=== PATIENT | male | born 1955 | race Hispanic/Latino ===

== ENCOUNTER 2019-03-05 23:55 | Emergency (ER) | payer MEDICARE, OTHER ==
--- OUTSIDE RECORDS SUMMARY | 2019-03-05 23:57 | XMS REPORT ---
:1955 Author Organization eClinicalWorks Care Team Providers Name Role Phone Kwame Oconnell Provider Role Unavailable Allergies No Known Allergies Problems Problem Type Condition Code Onset Dates Condition Status Assessment Hyperlipidemia, unspecified E78.5 Active hyperlipidemia type Assessment Language barrier Z78.9 Active Problem Hyperlipidemia, unspecified E78.5 Active hyperlipidemia type Problem Type 2 diabetes mellitus without E11.9 Active complication, without long-term current use of insulin Problem Asbestos exposure Z77.090 Active Assessment Type 2 diabetes mellitus without E11.9 Active complication, without long-term current use of insulin Assessment Essential (primary) hypertension I10 Active Problem Essential (primary) hypertension I10 Active Medications Medication Code Code Instructions Start End Date Status Dosage System Date Amlodipine [facility] 58455675931 10 MG Oral Active TAKE 1 Besylate TABLET BY MOUTH EVERY DAY Atorvastatin [facility] 19652524571 20 MG Oral Active TAKE 1 Calcium TABLET BY MOUTH EVERY DAY IN THE EVENING WITH DINNER Lisinopril/HCTZ [facility] 43306776899 20/12.5 PO Q Oct 23April 21, Active one daily 2017 2018 tablet Lisinopril [facility] 18332344553 20 MG Orally March Active 1 tablet Once a day 2018 Chlorthalidone ND 01896647091 25 MG Orally Active 1 tablet Once a day in the morning with food Kombiglyze XR [facility] 89832336781 5-1000 MG Oral Active TAKE 1 TABLET BY MOUTH WITH EVENING MEAL Results No Known Results Summary Purpose eClinicalWorks Submission
--- OUTSIDE RECORDS SUMMARY | 2019-03-05 23:57 | XMS REPORT ---
:1955 Author Organization eClinicalWorks Care Team Providers Name Role Phone Kwame Oconnell Provider Role Unavailable Allergies, Adverse Reactions, Alerts Substance Reaction Event Type N.K.D.A. Info Not Available Non Drug Allergy Problems Problem Type Condition Code Onset Dates Condition Status Assessment Language barrier Z78.9 Active Assessment Hyperlipidemia, unspecified E78.5 Active hyperlipidemia type Assessment Asbestos exposure Z77.090 Active Problem Hyperlipidemia, unspecified E78.5 Active hyperlipidemia type Problem Type 2 diabetes mellitus without E11.9 Active complication, without long-term current use of insulin Problem Asbestos exposure Z77.090 Active Assessment Type 2 diabetes mellitus without E11.9 Active complication, without long-term current use of insulin Assessment Essential (primary) hypertension I10 Active Problem Essential (primary) hypertension I10 Active Medications Medication Code Code Instructions Start End Status Dosage System Date Date Lisinopril/HCTZ [facility] 46907174764 20/12.5 PO Q Oct 23March Active one tablet daily 2017 Atorvastatin [facility] 94160765505 20 MG Oral Active TAKE 1 Calcium TABLET BY MOUTH EVERY DAY IN THE EVENING WITH DINNER Lisinopril ND 77242804899 20 MG Oral Inactive TAKE 1 TABLET BY MOUTH TWICE A DAY Kombiglyze XR ND 27955238910 5-1000 MG Oral Active TAKE 1 TABLET BY MOUTH WITH EVENING MEAL Amlodipine ND 07228787575 10 MG Oral Active TAKE 1 Besylate TABLET BY MOUTH EVERY DAY Results No Known Results Summary Purpose eClinicalWorks Submission
--- OUTSIDE RECORDS SUMMARY | 2019-03-05 23:57 | XMS REPORT ---
:1955 [facility] Address [address] [place] [address] [address] [place] [address] Care Team Providers Name Role Phone Unavailable Unavailable Unavailable Problems This patient has no known problems. Allergies, Adverse Reactions, Alerts This patient has no known allergies or adverse reactions. Medications This patient has no known medications.
--- OUTSIDE RECORDS SUMMARY | 2019-03-05 23:58 | XMS REPORT ---
:1955 Author Organization eClinicalWorks Care Team Providers Name Role Phone Kwame Oconnell Provider Role Unavailable Allergies No Known Allergies Problems Problem Type Condition Code Onset Dates Condition Status Problem Hyperlipidemia, unspecified E78.5 Active hyperlipidemia type Problem Type 2 diabetes mellitus without E11.9 Active complication, without long-term current use of insulin Problem Asbestos exposure Z77.090 Active Assessment Intermittent palpitations R00.2 Active Assessment Essential (primary) hypertension I10 Active Problem Essential (primary) hypertension I10 Active Medications Medication Code Code Instructions Start End Status Dosage System Date Date Kombiglyze XR [facility] 27883705212 5-1000 MG Oral Active TAKE 1 TABLET BY MOUTH WITH EVENING MEAL Chlorthalidone [facility] 40448041841 25 MG Orally Active 1 tablet Once a day in the morning with food Lisinopril/HCTZ [facility] 54107050456 20/12.5 PO Q Oct 23March Active one tablet daily 2017 Amlodipine ND 15891982742 10 MG Oral Active TAKE 1 Besylate TABLET BY MOUTH EVERY DAY Atorvastatin ND 56434695982 20 MG Oral Active TAKE 1 Calcium TABLET BY MOUTH EVERY DAY IN THE EVENING WITH DINNER Results No Known Results Summary Purpose eClinicalWorks Submission
[2019-03-06] MEDS ORDERED: NA CHLORIDE 0.9% 1,000 ML ONE (01:15)
[2019-03-06 01:24] LABS: Absolute Lymphocytes (CBC) 1.6 K/uL (0.7-4.9); Absolute Monocytes 0.7 K/uL (0.1-1.3); Basophils % 1.2 % (0-1.3); Eosinophils % 4.8 % (0-4.4); Hematocrit 43.9 % (39.6-49.0); Lymphocytes % 23.4 % (15.3-44.8); Monocytes % 10.7 % (3.3-12.3); RBC Red Blood Cell Count 4.66 M/uL (4.33-5.43)
[2019-03-06 01:27] LABS: Protime INR 1.01
[2019-03-06 01:43] LABS: Urine Blood TRACE (NEG); Urine Glucose NEGATIVE (NEG); Urine Protein NEGATIVE (NEG); Urine pH 5.5 (5.0-7.0)
[2019-03-06 01:45] LABS: ALT/SGPT 46 U/L (12-78); AST/SGOT 34 U/L (15-37); Albumin 3.9 g/dL (3.4-5.0); Alkaline Phosphatase 47 U/L (45-117); BUN Blood Urea Nitrogen 21 mg/dL (7-18); Bicarbonate 26 mmol/L (21-32); Bilirubin Direct < 0.1 mg/dL (0-0.2); Bilirubin Total 0.5 mg/dL (0.2-1.0); Glucose Level 153 mg/dL (74-106); Lipase 193 U/L (73-393); Magnesium 2.4 mg/dL (1.8-2.4); NT PRO-BNP 7 pg/mL (<125); Potassium 3.7 mmol/L (3.5-5.1); Protein, Total 7.4 g/dL (6.4-8.2); Sodium Level 139 mmol/L (136-145)
--- NOTE | 2019-03-06 02:02 | EDPHYS ---
Physician Documentation [facility] Name: Mookie Simons Age: 63 yrs Sex: Male : 1955 Arrival Date: 03/05/2019 Time: 23:58 Bed 18 Private MD: ED Physician Shankar Landeros HPI: 03/06 01:58 This 63 yrs old Male presents to ER via Ambulatory with complaints of Chest felice Congestion, Cough. 01:58 The patient or guardian reports cough, described as mild, flu symptoms, arthralgias. felice Onset: The symptoms/episode began/occurred 2 week(s) ago. Severity of symptoms: At their worst the symptoms were mild, in the emergency department the symptoms are unchanged. Modifying factors: The symptoms are alleviated by nothing, the symptoms are aggravated by nothing. Associated signs and symptoms: The patient has no apparent associated signs or symptoms. The patient has not experienced similar symptoms in the past. Historical: - Allergies: 00:07 No Known Allergies; ed1 - Home Meds: 00:07 chlorthalidone 25 mg Oral tab 1 tab once daily [Active]; Jardiance 25 mg oral tab 1 tab ed1 once daily [Active]; - PMHx: 00:07 Diabetes - NIDDM; Hypertension; ed1 - PSHx: 00:07 None; ed1 - Immunization history:: Adult Immunizations up to date. - Social history:: Smoking status: Patient/guardian denies using tobacco. - Ebola Screening: : Patient negative for fever greater than or equal to 101.5 degrees Fahrenheit, and additional compatible Ebola Virus Disease symptoms Patient denies exposure to infectious person Patient denies travel to an Ebola-affected area in the 21 days before illness onset No symptoms or risks identified at this time. - Family history:: not pertinent. ROS: 01:58 Constitutional: Negative for fever, chills, and weight loss, Eyes: Negative for injury, felice pain, redness, and discharge, ENT: Negative for injury, pain, and discharge, Neck: Negative for injury, pain, and swelling, Cardiovascular: Negative for chest pain, palpitations, and edema, Abdomen/GI: Negative for abdominal pain, nausea, vomiting, diarrhea, and constipation, Back: Negative for injury and pain, : Negative for injury, bleeding, discharge, and swelling, MS/Extremity: Negative for injury and deformity, Skin: Negative for injury, rash, and discoloration, Neuro: Negative for headache, weakness, numbness, tingling, and seizure, Psych: Negative for depression, anxiety, suicide ideation, homicidal ideation, and hallucinations, Allergy/Immunology: Negative for hives, rash, and allergies, Endocrine: Negative for neck swelling, polydipsia, polyuria, polyphagia, and marked weight changes, Hematologic/Lymphatic: Negative for swollen nodes, abnormal bleeding, and unusual bruising. 01:58 Respiratory: Positive for cough, shortness of breath, at rest. Exam: 01:58 Constitutional: This is a well developed, well nourished patient who is awake, alert, felice and in no acute distress. Head/Face: Normocephalic, atraumatic. Eyes: Pupils equal round and reactive to light, extra-ocular motions intact. Lids and lashes normal. Conjunctiva and sclera are non-icteric and not injected. Cornea within normal limits. Periorbital areas with no swelling, redness, or edema. ENT: Nares patent. No nasal discharge, no septal abnormalities noted. Tympanic membranes are normal and external auditory canals are clear. Oropharynx with no redness, swelling, or masses, exudates, or evidence of obstruction, uvula midline. Mucous membranes moist. Neck: Trachea midline, no thyromegaly or masses palpated, and no cervical lymphadenopathy. Supple, full range of motion without nuchal rigidity, or vertebral point tenderness. No Meningismus. Chest/axilla: Normal chest wall appearance and motion. Nontender with no deformity. No lesions are appreciated. Cardiovascular: Regular rate and rhythm with a normal S1 and S2. No gallops, murmurs, or rubs. Normal PMI, no JVD. No pulse deficits. Respiratory: Lungs have equal breath sounds bilaterally, clear to auscultation and percussion. No rales, rhonchi or wheezes noted. No increased work of breathing, no retractions or nasal flaring. Abdomen/GI: Soft, non-tender, with normal bowel sounds. No distension or tympany. No guarding or rebound. No evidence of tenderness throughout. Back: No spinal tenderness. No costovertebral tenderness. Full range of motion. Male : Normal genitalia with no discharge or lesions. Skin: Warm, dry with normal turgor. Normal color with no rashes, no lesions, and no evidence of cellulitis. Neuro: Awake and alert, GCS 15, oriented to person, place, time, and situation. Cranial nerves II-XII grossly intact. Motor strength 5/5 in all extremities. Sensory grossly intact. Cerebellar exam normal. Normal gait. Psych: Awake, alert, with orientation to person, place and time. Behavior, mood, and affect are within normal limits. 01:58 Musculoskeletal/extremity: Extremities: all appear grossly normal, with no appreciated pain with palpation, ROM: no acute changes, intact in all extremities, full active range of motion, full passive range of motion, Circulation is intact in all extremities. Sensation intact. Compartment Syndrome exam of affected extremity: is normal. DVT Exam: No signs of deep vein thrombosis. no pain, no swelling, no tenderness, negative Homans' sign noted on exam, no appreciated bluish discoloration, no erythema, no increased warmth. Vital Signs: 00:07 BP 140 / 80; Pulse 68; Resp 18; Temp 97.8; Pulse Ox 94% on R/A; Weight 78.93 kg; Height ed1 5 ft. 6 in. (167.64 cm); Pain 4/10; 01:18 BP 138 / 81; Pulse 65; Resp 17 S; Pulse Ox 95% on R/A; cc3 02:25 BP 134 / 77; Pulse 66; Resp 18 S; Pulse Ox 95% on R/A; cc3 03:04 BP 123 / 78; Pulse 62; Resp 19 S; Pulse Ox 96% on R/A; cc3 00:07 Body Mass Index 28.08 (78.93 kg, 167.64 cm) ed1 MDM: 00:12 Patient medically screened. [facility] 02: Data reviewed: vital signs, nurses notes, lab test result(s), EKG, radiologic studies, felice plain films. 03/06 00: Order name: Basic Metabolic Panel [facility] 03/06 Order name: CBC with Diff [facility] 03/06 Order name: LFT's [facility] 03/06 00: Order name: Magnesium; Complete Time: 02:45 [facility] 03/06 00:23 Order name: NT PRO-BNP; Complete Time: 02:45 [facility] 03/06 00: Order name: PT-INR; Complete Time: 01:56 [facility] 03/06 00:23 Order name: Troponin (emerg Dept Use Only); Complete Time: 02:45 [facility] 03/06 00:23 Order name: Lipase; Complete Time: 02:45 [facility] 03/06 00:23 Order name: Urine Culture [facility] 03/06 00:23 Order name: Influenza Screen (a \T\ B); Complete Time: 01:56 [facility] 03/06 00:23 Order name: Blood Culture Adult (2) [facility] 03/06 00:23 Order name: Procalcitonin; Complete Time: 02:45 [facility] 03/06 00:24 Order name: Basic Metabolic Panel; Complete Time: 02:45 EDMS 03/06 00:24 Order name: CBC with Automated Diff; Complete Time: 01:56 EDMS 03/06 00:23 Order name: XRAY Chest (1 view) [facility] 03/06 00:23 Order name: EKG; Complete Time: 00:25 [facility] 03/06 00:23 Order name: Cardiac monitoring; Complete Time: 00:46 [facility] 03/06 00:23 Order name: EKG - Nurse/Tech; Complete Time: 00:46 [facility] 03/06 00:23 Order name: IV Saline Lock; Complete Time: 01:01 [facility] 03/06 00:23 Order name: Labs collected and sent; Complete Time: 01:01 [facility] 03/06 00:23 Order name: O2 Per Protocol; Complete Time: 00:30 [facility] 03/06 00:24 Order name: Liver (Hepatic) Function; Complete Time: 02:45 EDMS 03/06 01:38 Order name: Urine Dipstick--Ancillary (enter results); Complete Time: 01:56 [facility] 03/06 00:23 Order name: O2 Sat Monitoring; Complete Time: 00:30 [facility] 03/06 00:23 Order name: Urine Dipstick-Ancillary (obtain specimen); Complete Time: 01:34 [facility] Administered Medications: 01:05 Drug: NS 0.9% 1000 ml Route: IV; Rate: 125 ml/hr; Site: right antecubital; cc3 03:15 Follow up: Response: No adverse reaction; IV Status: Order to discontinue infusion; IV cc3 Intake: 250ml ; patient discharged home 02:25 Drug: Xopenex 2.5 mg Route: Inhalation; cc3 03:00 Follow up: Response: No adverse reaction; Marked relief of symptoms cc3 02:25 Drug: AtroVENT Aerosol 0.5 mg Route: Inhalation; cc3 03:00 Follow up: Response: No adverse reaction; Marked relief of symptoms cc3 02:30 Drug: Zithromax 500 mg Route: PO; cc3 03:00 Follow up: Response: No adverse reaction cc3 02:30 Drug: Tussionex Pennkinetic ER 5 ml Route: PO; cc3 03:00 Follow up: Response: No adverse reaction cc3 02:33 Drug: SOLU-Medrol 125 mg Route: IVP; Site: right antecubital; cc3 03:00 Follow up: Response: No adverse reaction; Marked relief of symptoms cc3 02:40 Drug: Rocephin - (cefTRIAXone) 1 grams Route: IVPB; Infused Over: 30 mins; Site: right cc3 antecubital; 03:00 Follow up: Response: No adverse reaction; IV Status: Completed infusion; IV Intake: [id number] Disposition: 03/06/19 02:01 Discharged to Home. Impression: Acute upper respiratory infection, unspecified, Cough. - Condition is Stable. - Discharge Instructions: Upper Respiratory Infection, Adult, Cool Mist Vaporizer, Cough, Adult, [id number], Cough, Adult. - Prescriptions for Cheratussin AC 10- 100 mg/5 mL Oral liquid - take 10 milliliter by ORAL route every 4 hours; 160 milliliter. Medrol (Satinder) 4 mg Oral Tablets, Dose Pack - take 1 tablet by ORAL route as directed - follow package instructions; 1 packet. Zithromax 500 mg Oral Tablet - take 1 tablet by ORAL route once daily for 4 days; 4 tablet. Albuterol Sulfate 90 mcg/actuation - inhale 1-2 puff by INHALATION route every 4-6 hours; 1 Inhaler. - Medication Reconciliation Form, Thank You Letter, Antibiotic Education, Prescription Opioid Use form. - Follow up: Private Physician; When: 2 - 3 days; Reason: Recheck today's complaints, Continuance of care, Re-evaluation by your physician. - Problem is new. - Symptoms have improved. Signatures: Dispatcher [employer] EDMS Shankar Landeros MD MD cha Riggs, Erika, RN RN ed1 Anny Castellanos cc3 Corrections: (The following items were deleted from the chart) 03:19 02:01 03/06/2019 02:01 Discharged to Home. Impression: Acute upper respiratory cc3 infection, unspecified; Cough. Condition is Stable. Forms are Medication Reconciliation Form, Thank You Letter, Antibiotic Education, Prescription Opioid Use. Follow up: Private Physician; When: 2 - 3 days; Reason: Recheck today's complaints, Continuance of care, Re-evaluation by your physician. Problem is new. Symptoms have improved. felice
--- NOTE | 2019-03-06 02:02 | ER ---
Nurse's Notes [facility] Name: Mookie Simons Age: 63 yrs Sex: Male : 1955 Arrival Date: 03/05/2019 Time: 23:58 Bed 18 Private MD: Diagnosis: Acute upper respiratory infection, unspecified;Cough Presentation: 03/06 00:04 Presenting complaint: Patient states: I have bad cough for like one week. I cough so ed1 hard my chest hurts. Transition of care: patient was not received from another setting of care. Onset of symptoms was February 26, 2019. Risk Assessment: Do you want to hurt yourself or someone else? Patient reports no desire to harm self or others. Initial Sepsis Screen: Does the patient meet any 2 criteria? No. Patient's initial sepsis screen is negative. Does the patient have a suspected source of infection? No. Patient's initial sepsis screen is negative. Care prior to arrival: None. 00:04 Method Of Arrival: Ambulatory ed1 00:04 Acuity: MARIBEL 3 ed1 Triage Assessment: 00:07 General: Appears in no apparent distress. Behavior is calm, cooperative. Pain: ed1 Complains of pain in chest. Historical: - Allergies: 00:07 No Known Allergies; ed1 - Home Meds: 00:07 chlorthalidone 25 mg Oral tab 1 tab once daily [Active]; Jardiance 25 mg oral tab 1 tab ed1 once daily [Active]; - PMHx: 00:07 Diabetes - NIDDM; Hypertension; ed1 - PSHx: 00:07 None; ed1 - Immunization history:: Adult Immunizations up to date. - Social history:: Smoking status: Patient/guardian denies using tobacco. - Ebola Screening: : Patient negative for fever greater than or equal to 101.5 degrees Fahrenheit, and additional compatible Ebola Virus Disease symptoms Patient denies exposure to infectious person Patient denies travel to an Ebola-affected area in the 21 days before illness onset No symptoms or risks identified at this time. - Family history:: not pertinent. Screenin:09 Abuse screen: Denies threats or abuse. Denies injuries from another. Nutritional cc3 screening: No deficits noted. Tuberculosis screening: No symptoms or risk factors identified. Fall Risk Ambulatory Aid- None/Bed Rest/Nurse Assist (0 pts). Gait- Normal/Bed Rest/Wheelchair (0 pts) Mental Status- Oriented to own ability (0 pts). Assessment: 00:09 Reassessment: Patient appears in no apparent distress at this time. Patient and/or cc3 family updated on plan of care and expected duration. Pain level reassessed. Patient is alert, oriented x 3, equal unlabored respirations, skin warm/dry/pink. 01:18 Reassessment: Patient appears in no apparent distress at this time. Patient and/or cc3 family updated on plan of care and expected duration. Pain level reassessed. Patient is alert, oriented x 3, equal unlabored respirations, skin warm/dry/pink. 02:25 Reassessment: Patient appears in no apparent distress at this time. Patient and/or cc3 family updated on plan of care and expected duration. Pain level reassessed. Patient is alert, oriented x 3, equal unlabored respirations, skin warm/dry/pink. 03:15 Reassessment: Patient appears in no apparent distress at this time. Patient and/or cc3 family updated on plan of care and expected duration. Pain level reassessed. Patient is alert, oriented x 3, equal unlabored respirations, skin warm/dry/pink. Dr. Landeros discharged the patient home with prescription given. IV cannula removed and patient left ER vitally stable and ambulatory with his . Patient denies pain at this time. Patient states feeling better. Patient states symptoms have improved. Vital Signs: 00:07 BP 140 / 80; Pulse 68; Resp 18; Temp 97.8; Pulse Ox 94% on R/A; Weight 78.93 kg; Height ed1 5 ft. 6 in. (167.64 cm); Pain 4/10; 01:18 BP 138 / 81; Pulse 65; Resp 17 S; Pulse Ox 95% on R/A; cc3 02:25 BP 134 / 77; Pulse 66; Resp 18 S; Pulse Ox 95% on R/A; cc3 03:04 BP 123 / 78; Pulse 62; Resp 19 S; Pulse Ox 96% on R/A; cc3 00:07 Body Mass Index 28.08 (78.93 kg, 167.64 cm) ed1 ED Course: 03/05 23:58 Patient arrived in ED. 03/06 00:05 Triage completed. ed1 00:08 Arm band placed on right wrist. ed1 00:09 Anny Castellanos is Primary Nurse. cc3 00:09 Patient has correct armband on for positive identification. Placed in gown. Bed in low cc3 position. Call light in reach. Side rails up X 1. hospital monitor on. Pulse ox on. NIBP on. 00:12 Shankar Landeros MD is Attending Physician. [facility] 00:47 X-ray completed. Portable x-ray completed in exam room. Patient tolerated procedure kw well. 00:49 XRAY Chest (1 view) In Process Unspecified. EDMS 00:50 Inserted saline lock: 20 gauge in right antecubital area, using aseptic technique. cc3 Blood collected. 03:15 No provider procedures requiring assistance completed. IV discontinued, intact, cc3 bleeding controlled, No redness/swelling at site. Pressure dressing applied. Administered Medications: 01:05 Drug: NS 0.9% 1000 ml Route: IV; Rate: 125 ml/hr; Site: right antecubital; cc3 03:15 Follow up: Response: No adverse reaction; IV Status: Order to discontinue infusion; IV cc3 Intake: 250ml ; patient discharged home 02:25 Drug: Xopenex 2.5 mg Route: Inhalation; cc3 03:00 Follow up: Response: No adverse reaction; Marked relief of symptoms cc3 02:25 Drug: AtroVENT Aerosol 0.5 mg Route: Inhalation; cc3 03:00 Follow up: Response: No adverse reaction; Marked relief of symptoms cc3 02:30 Drug: Zithromax 500 mg Route: PO; cc3 03:00 Follow up: Response: No adverse reaction cc3 02:30 Drug: Tussionex Pennkinetic ER 5 ml Route: PO; cc3 03:00 Follow up: Response: No adverse reaction cc3 02:33 Drug: SOLU-Medrol 125 mg Route: IVP; Site: right antecubital; cc3 03:00 Follow up: Response: No adverse reaction; Marked relief of symptoms cc3 02:40 Drug: Rocephin - (cefTRIAXone) 1 grams Route: IVPB; Infused Over: 30 mins; Site: right cc3 antecubital; 03:00 Follow up: Response: No adverse reaction; IV Status: Completed infusion; IV Intake: [id number] Intake: 03:00 IV: 10ml; Total: 10ml. cc3 03:15 IV: 250ml; Total: 260ml. cc3 Outcome: 02:01 Discharge ordered by . felice 03:15 Discharged to home ambulatory, with family. cc3 03:15 Condition: stable 03:15 Discharge instructions given to patient, family, Instructed on discharge instructions, follow up and referral plans. medication usage, Demonstrated understanding of instructions, follow-up care, medications, Prescriptions given X 4. 03:19 Patient left the ED. cc3 Signatures: Dispatcher [employer] EDShankar Marroquin MD MD cha Salyer, Gypsy Toth, RN RN ed1 Ani Hendricks Charlene cc3
[2019-03-06 02:04] LABS: Troponin (Emerg Dept Use Only) < 0.02 ng/mL (0.0-0.045)
[2019-03-06] MEDS ORDERED: IPRATROPIUM BROM 0.5MG/2.5ML ONE (02:40)
[2019-03-06] MEDS ORDERED: AZITHROMYCIN 250 MG TAB ONE (02:40)
[2019-03-06] MEDS ORDERED: METHYLPREDNISOLONE 125 MG INJ ONE (02:40)
[2019-03-06] MEDS ORDERED: LEVALBUTEROL 1.25 MG/3 ML NEB ONE (02:41)
[2019-03-06] MEDS ORDERED: CEFTRIAXONE/SWI 1gm 1 GM/10 ML SYR ONE (02:41)
[2019-03-06] MEDS ORDERED: HYDROCODONE/CHLORPHEN 5 ML/OSYR ONE (02:41)
[2019-03-06 03:48] VITALS: TEMP 97.8
[2019-03-06 03:49] VITALS: BP 123/78; O2SAT 96
--- NOTE | 2019-03-06 07:11 | EKG ---
Test Date: 2019-03-06 Test Time: 00:42:28 Snuff Blender: KALIE MEASUREMENT RESULTS: Intervals: Rate: 59 IL: 172 QRSD: 104 QT: 406 QTc: 401 Todd: P: 58 IL: 172 QRS: -25 T: 36 INTERPRETIVE STATEMENTS: Sinus bradycardia Otherwise normal ECG Compared to ECG 09/21/2016 13:17:21 Left-axis deviation no longer present Electronically Signed On 03-06-19 07:11:12 CDT by Zak Avalos
--- NOTE | 2019-03-06 08:35 | RAD REPORT ---
EXAM DESCRIPTION: RAD - Chest Single View - 03/06/2019 12:48 am CLINICAL HISTORY: COUGH Chest pain. COMPARISON: Chest Pa And Lat (2 Views) dated 11/07/2018; Chest Single View dated 09/21/2016; Chest Si ngle View dated 08/10/2016; CHEST SINGLE VIEW dated 03/05/2014 FINDINGS: Portable technique limits examination quality. The lungs are grossly clear. The heart is normal in size. No displaced fractures. IMPRESSION: No acute intrathoracic process suspected.
== END 2019-03-06 03:19 | disposition home or self-care (01) ==
LOC: ER 23:55
DX: J06.9 Acute upper respiratory infection, unspecified (principal); E11.9 Type 2 diabetes mellitus without complications; I10 Essential (primary) hypertension
CPT/HCPCS: 96365; 96361; 93005; 87040 ×2; 87088; 85025; 87086; 80048; 36415; 83735; 85610; 80076; 81003; 84484; 83690; 84145; 83880; 87804 ×2; 71045; 96375; 99285; J0696; J7030; J2930

== ENCOUNTER 2023-08-26 12:57 | Emergency (ER) | payer OTHER ==
--- OUTSIDE RECORDS SUMMARY | 2023-08-26 13:01 | XMS REPORT | Continuity of Care Document ---
:1955 Author Organization [facility] t Address [address] [place] [id number] Care Team Providers Name Role Phone LUIS MYA Primary Care Physician Unavailable Gus Moore Attending Clinician Unavailable Kwame Oconnell Attending Clinician Unavailable Doctor Unassigned, [place] Attending Clinician Unavailable Behzad Layne MD Attending Clinician CHARMAINE CULLEN Attending Clinician Unavailable NOAH REYES Attending Clinician Unavailable Noah Reyes NP Attending Clinician Nicole Carrion MD Attending Clinician NICOLE CARRION Attending Clinician Unavailable NOAH REYES Admitting Clinician Unavailable NICOLE CARRION Admitting Clinician Unavailable Payers Payer Name Policy Type Policy Number Effective Date Expiration Date S rosario SALAZAR [facility] [id number] 2022-04-27 [facility] [place] [facility] [id number] 2019-10-28 Common Sp susan ing Medicare 00:00:00 - [facility] C[facility]-HealthSpr [id number] 2019-10-28 Common Sp susan ing Medicare 00:00:00 - [facility]-HealthSpr C1 [id number] 2019-10-28 Common Sp susan ing Medicare 00:00:00 - [facility] Cig-HealthSpr C1 [id number] 2019-10-28 Common Sp susan ing Medicare 00:00:00 - [facility] Cig-HealthSpr C1 [id number] 2019-10-28 Common Sp susan ing Medicare 00:00:00 - [facility] [id number] 2019-10-28 Common Sp susan ing Medicare 00:00:00 - [facility] [id number] 2019-10-28 Common Sp susan ing Medicare 00:00:00 - [facility] [id number] 2019-10-28 Common Sp susan ing Medicare 00:00:00 - [facility] [id number] 2019-10-28 Common Sp susan ing Medicare 00:00:00 - [facility] [id number] 2019-10-28 Common Sp susan ing Medicare 00:00:00 - [facility] Problems Condition Condition Condition Status Onset Resolution Last Treating Co mments Source Name Details Category Date Date Treatment Clinician Date Diabetic Chronic Problem Common renal kidney Spirit disease disease - [facility] due to [facility] [id number] Screen for Problem Co mmon colon Spirit cancer - [facility] Decreased Hearing Problem Commo n hearing decreased [facility] Skin Numbness Problem Common sensation and Spirit disturbanc tingling - CH I e [facility] [id number] Stress and Problem Co mmon adjustment Spirit reaction [facility] [id number] [place] Problem Common (generaliz Spirit ed anxiety - [facility]I disorder) [facility] Allergic Non-season Problem Com mon rhinitis al Spirit allergic - [facility] unspecifie d trigger [id number] Asbestos Problem Comm on exposure Spirit [facility] [id number] Noncomplia Problem Co mmon nce with Spirit dietary - [facility]I restrictio [facility] [id number] Essential Problem Comm on hypertensi Spirit on - [facility] [id number] Hyperlipid Problem Com mon emia, Spirit unspecifie - CHI d hyperlipid [facility] emia type [facility] Microscopi Microhemat Problem C ommon c uria Spirit hematuria - [facility] Elevated Elevated Problem Commo n PSA PSA Spirit - [facility] [id number] Type 2 Problem Common diabetes Spirit mellitus - [facility]I without St complicati [facility] on, Medical without Center long-term current use of insulin [id number] Mixed Problem Common hyperlipid Spirit emia - [facility] [id number] Type 2 Problem Common diabetes Spirit mellitus - [facility]I with hyperglyce [facility] josh Medical without Center long-term current use of insulin [id number] Chronic Problem Common bronchitis Spirit , - CHI unspecifie d chronic [facility] bronchitis [facility] [id number] Dry eye Problem Commo n Spirit - [facility] Allergies, Adverse Reactions, Alerts Allergy Allergy Status Severity Reaction(s) Onset Inactive Treating Comm ents Source Name Type Date Date Clinician NO KNOWN Drug Active Univers ALLERGIE Class ity [facility] Social History Social Habit Start Date Stop Date Quantity Comments Source History of Tobacco Common Spirit - CHI Use [facility] Sex Assigned At Common Sp susan - [facility] Exposure to 2022-08-01 2022-08-11 Not sure [facility] SARS-CoV-2 (event) 00:00:00 13:22:00 [facility] Smoking Status Start Date Stop Date Source Unknown if ever smoked Common Sp susan - [facility] nter Never Smoker Common Spirit - [facility] nter Former Smoker 2022-06-16 00:00:00 2022-06-16 00:00:00 Common S pirit - [facility] nter Medications Ordered Filled Start Stop Current Ordering Indication Dosage Frequency Signature Comments Components Source Medication Medication Date Date Medication? Clinician (SIG) Name Name Cetirizine Cetirizine 2022-10 No 1{table QD Cetirizine HCl 10 MG HCl 10 MG 0-27 t} HCl 10 MG 00:00: 00 busPIRone busPIRone 2022-10 No 1{table BID busPIRone HCl 15 MG HCl 15 MG 0-27 t} HCl 15 MG 00:00: 00 Cetirizine Cetirizine 2022-10 No 1{table QD Cetirizine HCl 10 MG HCl 10 MG 0-27 t} HCl 10 MG 00:00: 00 busPIRone busPIRone 2022-10 No 1{table BID busPIRone HCl 15 MG HCl 15 MG 0-27 t} HCl 15 MG 00:00: 00 dexamethaso 2021-10 No 10mg 10 mg, Uni vers ne 0-15 10-15 Intramuscu ity of (DECADRON 19:45: 19:45 lar, ONCE, [place] PHOSPHATE) 00 :00 1 dose, On Med ical injection Sat Branch 10 mg 08/11/22 at 1445, Routine methocarbam 2021-10 No 1500mg 1,500 mg, Univers oL 0-15 10-15 Oral, ity of (ROBAXIN) 19:30: 19:04 ONCE, 1 [place] tablet [place] :[place] dose, On Medical 1,500 mg Sat Branch 08/11/22 at 1430, Routine ibuprofen 2021-10 No 600mg 600 mg, Uni vers (IBU) 0-15 10-15 Oral, ity of tablet 600 18:45: 19:04 ONCE, 1 [place] mg 00 :00 dose, On Medical Sat Branch 08/11/22 at 1345, LORETA gabapentin 2021-10 No 300mg 300 mg, Un [place] (NEURONTIN) 0-15 10-15 Oral, ity of capsule 300 18:45: 19:04 [place]CE[place] 1 [place] mg [place] :[place] dose, On Medical Sat Branch 08/11/22 at 1345, LORETA linagliptin 2021-10 Yes [facility] -metformin 0-15 XR 2.5 ity of (JENTADUETO 15:21: mg-1,000 [place] XR[place] 13 mg tablet, Medical 2.5-1,000 extended Branch mg TBph release olmesartan 2021-10 Yes olmesartan U nivers 20 mg 0-15 20 mg ity of tablet 15:21: tablet [place] 13 Medical Branch linagliptin 2021-10 Yes [facility] -metformin 0-15 XR 2.5 ity of (JENTADUETO 15:21: mg-1,000 [place] XR[place] 13 mg tablet, Medical 2.5-1,000 extended Branch mg TBph release olmesartan 2021-10 Yes olmesartan U nivers 20 mg 0-15 20 mg ity of tablet 15:21: tablet [address] Branch linagliptin 2021-10 Yes Jentadueto Univers -metformin 0-15 XR 2.5 ity of (JENTADUETO 15:21: mg-1,000 [place] XR[place] 13 mg tablet, Medical 2.5-1,000 extended Branch mg TBph release olmesartan 2021-10 Yes olmesartan U nivers 20 mg 0-15 20 mg ity of tablet 15:21: tablet [address] Branch atorvastati 2021-10 Yes atorvastat Univers n 20 mg 0-15 in 20 mg ity of tablet 15:21: tablet [address] Branch dapaglifloz 2021-10 Yes Farxiga 10 Univers in 0-15 mg tablet ity of (FARXIGA) 15:21: Take 1 [place] 10 mg 12 tablet Medical tablet every day Branch by oral route for 90 days. atorvastati 2021-10 Yes atorvastat Univers n 20 mg 0-15 in 20 mg ity of tablet 15:21: tablet [address] Branch dapaglifloz 2021-10 Yes Farxiga 10 Univers in 0-15 mg tablet ity of (FARXIGA) 15:21: Take 1 [place] 10 mg 12 tablet Medical tablet every day Branch by oral route for 90 days. atorvastati 2021-10 Yes atorvastat Univers n 20 mg 0-15 in 20 mg ity of tablet 15:21: tablet [address] Branch dapaglifloz 2021-10 Yes Farxiga 10 Univers in 0-15 mg tablet ity of (FARXIGA) 15:21: Take 1 [place] 10 mg 12 tablet Medical tablet every day Branch by oral route for 90 days. ketorolac 2021-10 Yes [id number] 10mg Take 1 [place] 10 mg 0-15 tablet by ity of tablet 00:00: mouth [place] 00 every 6 Medical (six) Branch hours as needed for Pain (scale 4-6), Pain (scale 1-3) or Pain (scale 7-10). ketorolac 2021-10 Yes [id number] 10mg Take 1 [place] 10 mg 0-15 tablet by ity of tablet 00:00: mouth [place] 00 every 6 Medical (six) Branch hours as needed for Pain (scale 4-6), Pain (scale 1-3) or Pain (scale 7-10). ketorolac 2021-10 Yes [id number] 10mg Take 1 [place] 10 mg 0-15 tablet by ity of tablet 00:00: mouth [place] 00 every 6 Medical (six) Branch hours as needed for Pain (scale 4-6), Pain (scale 1-3) or Pain (scale 7-10). methocarbam 2021-10- No [id number] 1000mg Take 2 Univers oL 500 mg 0-15 10-20 tablets by ity of tablet 00:00: 04:59 mouth 4 [place] 00 :00 (four) Medical times Branch daily for 4 days. predniSONE 2021-10- No [id number] 20mg Take 1 Univers 20 mg 0-15 10-20 tablet by ity of tablet 00:00: 04:59 mouth 2 [place] 00 :00 (two) Medical times Branch daily for 4 days. gabapentin 2021-10- No [id number] 100mg Take 1 Univers 100 mg 0-15 10-20 capsule by ity of capsule 00:00: 04:59 mouth 3 [place] 00 :00 (three) Medical times Branch daily for 4 days. Bactrim DS Bactrim DS 2020-10- No 1{table BID Bactrim DS 800-160 MG 800-160 MG 11-12 t} 800-160 MG 00:00: 00:00 00 :00 Bactrim DS Bactrim DS 2020-10- No 1{table BID Bactrim DS 800-160 MG 800-160 MG 16 23 t} 800-160 MG 00:00: 00:00 00 :00 ReliOn ReliOn No ReliOn Blood Blood 9-16 Blood Glucose Glucose 00:00: Glucose Test - Test - 00 Test - ReliOn ReliOn No ReliOn Blood Blood 9-16 Blood Glucose Glucose 00:00: Glucose Test - Test - 00 Test - ReliOn ReliOn No ReliOn Blood Blood 9-16 Blood Glucose Glucose 00:00: Glucose Test - Test - 00 Test - ReliOn ReliOn 2020-0 No ReliOn Blood Blood 9-16 Blood Glucose Glucose 00:00: Glucose Test - Test - Test - ReliOn ReliOn 2020-0 No ReliOn Blood Blood 9-16 Blood Glucose Glucose 00:00: Glucose Test - Test - Test - ReliOn ReliOn 2020-0 No ReliOn Blood Blood 9-16 Blood Glucose Glucose 00:00: Glucose Test - Test - Test - ReliOn ReliOn 2020-0 No ReliOn Blood Blood 9-16 Blood Glucose Glucose 00:00: Glucose Test - Test - Test - glipiZIDE glipiZIDE 2020-0 No 1{table QD glipiZIDE XL 5 MG XL 5 MG 06-28 t_with_ XL 5 MG 00:00: food} 00 glipiZIDE glipiZIDE 2020- No 1{table QD glipiZIDE XL 5 MG XL 5 MG 06-28 t_with_ XL 5 MG 00:00: food} 00 Tamsulosin Tamsulosin 2021- No 1{capsu QD Tamsulosin HCl 0.4 MG HCl 0.4 MG 06-22 le} HCl 0.4 MG 00:00: 00:00 00 :00 Tamsulosin Tamsulosin 2021- No 1{capsu QD Tamsulosin HCl 0.4 MG HCl 0.4 MG 06-22 le} HCl 0.4 MG 00:00: 00:00 00 :00 Tamsulosin Tamsulosin 2021- No 1{capsu QD Tamsulosin HCl 0.4 MG HCl 0.4 MG 06-22 le} HCl 0.4 MG 00:00: 00:00 00 :00 Tamsulosin Tamsulosin 2- No 1{capsu QD Tamsulosin HCl 0.4 MG HCl 0.4 MG 06-22 le} HCl 0.4 MG 00:00: 00:00 00 :00 Tamsulosin Tamsulosin 2021- No 1{capsu QD Tamsulosin HCl 0.4 MG HCl 0.4 MG 06-22 le} HCl 0.4 MG 00:00: 00:00 00 :00 Tamsulosin Tamsulosin 2021- No 1{capsu QD Tamsulosin HCl 0.4 MG HCl 0.4 MG 06-22 le} HCl 0.4 MG 00:00: 00:00 00 :00 Tamsulosin Tamsulosin 2021- No 1{capsu QD Tamsulosin HCl 0.4 MG HCl 0.4 MG 06-22 le} HCl 0.4 MG 00:00: 00:00 00 :00 Tamsulosin Tamsulosin 2021- No 1{capsu QD Tamsulosin HCl 0.4 MG HCl 0.4 MG 06-22 le} HCl 0.4 MG 00:00: 00:00 00 :00 Tamsulosin Tamsulosin 2021- No 1{capsu QD Tamsulosin HCl 0.4 MG HCl 0.4 MG 06-22 le} HCl 0.4 MG 00:00: 00:00 00 :00 Betamethaso Betamethaso 2020- No 1{appli BID Betamethas ne ne 06-22 10-07 cation} one Dipropionat Dipropionat 00:00: 00:00 Dipropiona e 0.05 % e 0.05 % 00 :00 te 0.05 % Betamethaso Betamethaso 2020- No 1{appli BID Betamethas ne ne 06-22 10-07 cation} one Dipropionat Dipropionat 00:00: 00:00 Dipropiona e 0.05 % e 0.05 % 00 :00 te 0.05 % Betamethaso Betamethaso 2020- No 1{appli BID Betamethas ne ne 06-22 10-07 cation} one Dipropionat Dipropionat 00:00: 00:00 Dipropiona e 0.05 % e 0.05 % 00 :00 te 0.05 % Betamethaso Betamethaso 2020- No 1{appli BID Betamethas ne ne 06-22 10-07 cation} one Dipropionat Dipropionat 00:00: 00:00 Dipropiona e 0.05 % e 0.05 % 00 :00 te 0.05 % Betamethaso Betamethaso 2020- No 1{appli BID Betamethas ne ne 06-22 cation} one Dipropionat Dipropionat 00:00: 00:00 Dipropiona e 0.05 % e 0.05 % 00 :00 te 0.05 % Cephalexin Cephalexin 2020- No 1{capsu QID Cephalexin 500 MG 500 MG 06-22 le} 500 MG 00:00: 00:00 00 :00 Cephalexin Cephalexin 202- No 1{capsu QID Cephalexin 500 MG 500 MG 06-22 le} 500 MG 00:00: 00:00 00 :00 Flomax 0.4 Flomax 0.4 2020- No 1{capsu QD Flomax 0.4 MG MG 12-07 le} MG 00:00: 00:00 00 :00 Flomax 0.4 Flomax 0.4 2020- No 1{capsu QD Flomax 0.4 MG MG 12-07 le} MG 00:00: 00:00 00 :00 Flomax 0.4 Flomax 0.4 2020- No 1{capsu QD Flomax 0.4 MG MG 2-07-05 le} MG 00:00: 00:00 00 :00 Flomax 0.4 Flomax 0.4 0 202- No 1{capsu QD Flomax 0.4 MG MG -07-05 le} MG 00:00: 00:00 00 :00 Flomax 0.4 Flomax 0.4 2020- No 1{capsu QD Flomax 0.4 MG MG 2-07-05 le} MG 00:00: 00:00 00 :00 Albuterol Albuterol 2019-0 Yes Gus 3 ml as Common Sulfate Sulfate 8- [place] needed Spirit 00:00: - [facility] ProAir HFA ProAir HFA 0 Yes Gus 2 puffs as Common 8-24 [place] needed Spirit 00:00: - [facility] Jentadueto Jentadueto 2019-0 Yes Gus 2 tablets Common XR XR 2-28 Moore with a Spirit 00:00: meal - CHI 00 [facility] ciprofloxac 2018-0 Yes 500mg Take 1 Uni vers in HCl 500 5-31 tablet by ity of mg tablet 00:00: mouth (two) Medical times Branch daily. metroNIDAZO 2018-0 Yes 500mg Take 1 Uni vers LE 500 mg 5-31 tablet by ity o f tablet 00:00: mouth (two) Medical times Branch daily. ondansetron 2018-0 Yes 4mg Take 1 Univ ers 4 mg 5-31 tablet by ity of disintegrat 00:00: mouth [place] ing tablet 00 every 4 Medica l (four) Branch hours as needed for Nausea and Vomiting (N/V). famotidine 2018-0 Yes 20mg Take 1 Unive rs 20 mg 5-31 tablet by ity of tablet 00:00: mouth (two) Medical times Branch daily. ciprofloxac 2018-0 Yes 500mg Take 1 Uni vers in HCl 500 5-31 tablet by ity of mg tablet 00:00: mouth (two) Medical times Branch daily. metroNIDAZO 2018-0 Yes 500mg Take 1 Uni vers LE 500 mg 5-31 tablet by ity o f tablet 00:00: mouth (two) Medical times Branch daily. ondansetron 2018-0 Yes 4mg Take 1 Univ ers 4 mg 5-31 tablet by ity of disintegrat 00:00: mouth [place] ing tablet 00 every 4 Medica l (four) Branch hours as needed for Nausea and Vomiting (N/V). famotidine 2018-0 Yes 20mg Take 1 Unive rs 20 mg 5-31 tablet by ity of tablet 00:00: mouth (two) Medical times Branch daily. ciprofloxac 2018-0 2022- No 500mg Take 1 Un [place] in HCl 500 5-31 10-15 tablet by ity of mg tablet 00:00: 00:00 mouth 2 [place] 00 :[place] (two) Medical times Branch daily. metroNIDAZO 2018-0 2022- No 500mg Take 1 [place] LE 500 mg 5-31 10-15 tablet by ity of tablet 00:00: 00:00 mouth 2 [place] 00 :00 (two) Medical times Branch daily. ondansetron 2018-0 2022- No 4mg Take 1 Uni vers 4 mg 5-31 10-15 tablet by ity of disintegrat 00:00: 00:00 mouth [place] tablet 00 :00 every 4 Medica l (four) Branch hours as needed for Nausea and Vomiting (N/V). famotidine No 20mg Take 1 Univ ers 20 mg 5-31 10-15 tablet by ity of tablet 00:00: 00:00 mouth 2 [place] 00 :00 (two) Medical times Branch daily. cyclobenzap Yes 10mg Take 1 Univ ers rine 10 mg 6-16 tablet by ity of tablet 00:00: mouth 3 00 (three) Medical times Branch daily. traMADOL 50 Yes 50mg Take 1 Univ ers mg tablet 6-16 tablet by ity o f 00:00: mouth [place] 00 every 4 Medical (four) Branch hours as needed for Pain (scale 7-10). cyclobenzap Yes 10mg Take 1 Univ ers rine 10 mg 6-16 tablet by ity of tablet 00:00: mouth 3 00 (three) Medical times Branch daily. traMADOL 50 Yes 50mg Take 1 Univ ers mg tablet 6-16 tablet by ity o f 00:00: mouth [place] 00 every 4 Medical (four) Branch hours as needed for Pain (scale 7-10). cyclobenzap 2021- No 10mg Take 1 Uni vers rine 10 mg 6-16 10-15 tablet by ity of tablet 00:00: 00:00 mouth 3 [place] 00 :00 (three) Medical times Branch daily. traMADOL 50 2021- No 50mg Take 1 Uni vers mg tablet 6-16 10-15 tablet by ity of 00:00: 00:00 mouth [place] 00 :00 every 4 Medical (four) Branch hours as needed for Pain (scale 7-10). diclofenac Yes TAKE 1 Unive rs 75 mg EC 6-08 TABLET BY ity of tablet 00:00: MOUTH [place] 00 TWICE A Medical DAY Branch pioglitazon Yes TAKE 1 Univ ers e 30 mg 6-08 TABLET(S) ity of tablet 00:00: BY MOUTH [place] 00 DAILY FOR Medical GLU OVER Branch 100 diclofenac 2016-0 Yes TAKE 1 Unive rs 75 mg EC 6-08 TABLET BY ity of tablet 00:00: MOUTH [place] 00 TWICE A Medical DAY Branch pioglitazon 2017-0 Yes TAKE 1 Univ ers e 30 mg 6-08 TABLET(S) ity of tablet 00:00: BY MOUTH [place] 00 DAILY FOR Medical GLU OVER Branch 100 methylPREDN 2017-0 Yes TAKE Uni vers ISolone 4 6-08 DIRECTED ity of mg tablets 00:00: [place] 00 Medical Branch pioglitazon 2017-0 Yes TAKE 1 Univ ers e 30 mg 6-08 TABLET(S) ity of tablet 00:00: BY MOUTH [place] 00 DAILY FOR Medical GLU OVER Branch 100 cyclobenzap Yes TAKE 1 Univ ers rine 10 mg 6-08 TABLET(S) ity of tablet 00:00: BY MOUTH [place] 00 AT BEDTIME Medical NEEDED Branch MUSCLE SPASM. diclofenac Yes TAKE 1 Unive rs 75 mg EC 6-08 TABLET BY ity of tablet 00:00: MOUTH [place] TWICE A Medical DAY Branch methylPREDN 2016-0 Yes TAKE Uni vers ISolone 4 6-08 DIRECTED ity of mg tablets 00:00: [place] 00 Medical Branch pioglitazon 0 Yes TAKE 1 Univ ers e 30 mg 6-08 TABLET(S) ity of tablet 00:00: BY MOUTH [place] DAILY FOR Medical GLU OVER Branch 100 diclofenac 2016-0 Yes TAKE 1 Unive rs 75 mg EC 6-08 TABLET BY ity of tablet 00:00: MOUTH [place] 00 TWICE A Medical DAY Branch pioglitazon 0 Yes TAKE 1 Univ ers e 30 mg 6-08 TABLET(S) ity of tablet 00:00: BY MOUTH [place] 00 DAILY FOR Medical GLU OVER Branch 100 cyclobenzap 0 Yes TAKE 1 Univ ers rine 10 mg 6-08 TABLET(S) ity of tablet 00:00: BY MOUTH [place] 00 AT BEDTIME Medical NEEDED Branch MUSCLE SPASM. diclofenac 2016- Yes TAKE 1 Unive rs 75 mg EC 6-08 TABLET BY ity of tablet 00:00: MOUTH [place] 00 TWICE A Medical DAY Branch cyclobenzap 2017-0 2021- No TAKE 1 Uni vers rine 10 mg 6-08 10-15 TABLET(S) ity of tablet 00:00: 00:00 BY MOUTH [place] 00 :00 AT BEDTIME Medical NEEDED Branch MUSCLE SPASM. methylPREDN 2021- No TAKE Un deonte ISolone 4 6-08 10-15 DIRECTED ity o f mg tablets 00:00: 00:00 [place] 00 : Medical Branch KOMBIGLYZE Yes TAKE 1 Unive rs XR 5-1,000 6-06 TABLET(S) ity of mg per 00:00: BY MOUTH [place] tablet 00 DAILY WITH [facility] EVENING MEAL. KOMBIGLYZE Yes TAKE 1 Unive rs XR 5-1,000 6-06 TABLET(S) ity of mg per 00:00: BY MOUTH [place] tablet 00 DAILY WITH [facility] EVENING MEAL. KOMBIGLYZE 2021- No TAKE 1 Univ ers XR 5-1,000 6-06 10-15 TABLET(S) ity of mg per 00:00: 00:00 BY MOUTH [place] tablet 00 :00 DAILY WITH [facility] EVENING MEAL. lisinopril Yes TAKE 1 Unive rs 20 mg 4-19 TABLET BY ity of tablet 00:00: MOUTH ONCE Medical Branch lisinopril Yes TAKE 1 Unive rs 20 mg 4-19 TABLET BY ity of tablet 00:00: MOUTH ONCE [place] Medical Branch lisinopril 2021- No TAKE 1 Univ ers 20 mg 4-19 10-15 TABLET BY ity of tablet 00:00: 00:00 MOUTH ONCE [place] 00 :00 A DAY Medical Branch lisinopril Yes 10mg Take 10 mg U nivers 10 mg 3-20 by mouth ity of tablet 00:00: daily. [facility] Branch amLODIPine Yes 5mg Take 5 mg Un [place] 5 mg tablet 3-20 by mouth ity of 00:00: daily. Medical Branch amLODIPine Yes 5mg Take 5 mg [place] 5 mg tablet 3-20 by mouth ity of 00:00: daily. [facility] Branch lisinopril Yes 10mg Take 10 mg U nivers 10 mg 3-20 by mouth ity of tablet 00:00: daily. [facility] Branch amLODIPine Yes 5mg Take 5 mg [place] 5 mg tablet 3-20 by mouth ity of 00:00: daily. [address] amLODIPine Yes 5mg Take 5 mg [place] 5 mg tablet 3-20 by mouth ity of 00:00: daily. [address] amLODIPine Yes 5mg Take 5 mg [place] 5 mg tablet 3-20 by mouth ity of 00:00: daily. [address] lisinopril 2022- No 10mg Take 10 mg Univers 10 mg 3-20 10-15 by mouth ity of tablet 00:00: 00:00 daily. [place] 00 :00 [facility] Amlodipine Amlodipine Yes Gus TAKE 1 Common Besylate Besylate [place] TABLET BY S pirit MOUTH - CHI EVERY DAY [facility] Atorvastati Atorvastati Yes Gus TAKE 1 Common n Calcium n Calcium [place] TABLET BY Spirit MOUTH - CHI EVERY DAY [facility] DINNER Olmesartan Olmesartan Yes Gus 1 tablet Common Medoxomil Medoxomil [place] Spir it - [facility] Olmesartan Olmesartan No 1{table QD Olmesartan Medoxomil Medoxomil t} Medoxomil 20 MG 20 MG 20 MG ProAir HFA ProAir HFA No 2{puffs ProAir HFA 108 (90 108 (90 _as_nee 108 (90 Base) Base) ded} Base) MCG/ACT MCG/ACT MCG/ACT Jentadueto Jentadueto No 2{table QD Jentadueto XR 2.5-1000 XR 2.5-1000 ts_with XR MG MG _a_meal 2.5-1000 } MG Albuterol Albuterol No 3{ml_as QID Albuterol Sulfate Sulfate _needed Sulfate (2.5 (2.5 } (2.5 MG/3ML) MG/3ML) MG/3ML) 0.083% 0.083% 0.083% Atorvastati Atorvastati No QD Atorvastat n Calcium n Calcium in Calcium 20 MG 20 MG 20 MG Atorvastati Atorvastati No QD Atorvastat n Calcium n Calcium in Calcium 20 MG 20 MG 20 MG amLODIPine amLODIPine No QD amLODIPine Besylate 10 Besylate 10 Besylate MG MG 10 MG amLODIPine amLODIPine No QD amLODIPine Besylate 10 Besylate 10 Besylate MG MG 10 MG Olmesartan Olmesartan No 1{table QD Olmesartan Medoxomil Medoxomil t} Medoxomil 20 MG 20 MG 20 MG Albuterol Albuterol No 3{ml_as QID Albuterol Sulfate Sulfate _needed Sulfate (2.5 (2.5 } (2.5 MG/3ML) MG/3ML) MG/3ML) 0.083% 0.083% 0.083% Jentadueto Jentadueto No 2{table QD Jentadueto XR 2.5-1000 XR 2.5-1000 ts_with XR MG MG _a_meal 2.5-1000 } MG Atorvastati Atorvastati No QD Atorvastat n Calcium n Calcium in Calcium 20 MG 20 MG 20 MG amLODIPine amLODIPine No QD amLODIPine Besylate 10 Besylate 10 Besylate MG MG 10 MG ProAir HFA ProAir HFA No 2{puffs ProAir HFA 108 (90 108 (90 _as_nee 108 (90 Base) Base) ded} Base) MCG/ACT MCG/ACT MCG/ACT amLODIPine amLODIPine No QD amLODIPine Besylate 10 Besylate 10 Besylate MG MG 10 MG Atorvastati Atorvastati No QD Atorvastat n Calcium n Calcium in Calcium 20 MG 20 MG 20 MG Olmesartan Olmesartan No 1{table QD Olmesartan Medoxomil Medoxomil t} Medoxomil 20 MG 20 MG 20 MG amLODIPine amLODIPine No QD amLODIPine Besylate 10 Besylate 10 Besylate MG MG 10 MG Albuterol Albuterol No 3{ml_as QID Albuterol Sulfate Sulfate _needed Sulfate (2.5 (2.5 } (2.5 MG/3ML) MG/3ML) MG/3ML) 0.083% 0.083% 0.083% amLODIPine amLODIPine No QD amLODIPine Besylate 10 Besylate 10 Besylate MG MG 10 MG Jentadueto Delisadueto No 2{table QD Jentadueto XR 2.5-1000 XR 2.5-1000 ts_with XR MG MG _a_meal 2.5-1000 } MG Olmesartan Olmesartan No 1{table QD Olmesartan Medoxomil Medoxomil t} Medoxomil 20 MG 20 MG 20 MG ProAir HFA ProAir HFA No 2{puffs ProAir HFA 108 (90 108 (90 _as_nee 108 (90 Base) Base) ded} Base) MCG/ACT MCG/ACT MCG/ACT Atorvastati Atorvastati No QD Atorvastat n Calcium n Calcium in Calcium 20 MG 20 MG 20 MG Atorvastati Atorvastati No QD Atorvastat n Calcium n Calcium in Calcium 20 MG 20 MG 20 MG glipiZIDE glipiZIDE No 1{table QD glipiZIDE XL 5 MG XL 5 MG t_with_ XL 5 MG food} Atorvastati Atorvastati No QD Atorvastat n Calcium n Calcium in Calcium 20 MG 20 MG 20 MG Atorvastati Atorvastati No QD Atorvastat n Calcium n Calcium in Calcium 20 MG 20 MG 20 MG ProAir HFA ProAir HFA No 2{puffs ProAir HFA 108 (90 108 (90 _as_nee 108 (90 Base) Base) ded} Base) MCG/ACT MCG/ACT MCG/ACT amLODIPine amLODIPine No QD amLODIPine Besylate 10 Besylate 10 Besylate MG MG 10 MG Jentadueto Jentadueto No 2{table QD Jentadueto XR 2.5-1000 XR 2.5-1000 ts_with XR MG MG _a_meal 2.5-1000 } MG Olmesartan Olmesartan No 1{table QD Olmesartan Medoxomil Medoxomil t} Medoxomil 20 MG 20 MG 20 MG Albuterol Albuterol No 3{ml_as QID Albuterol Sulfate Sulfate _needed Sulfate (2.5 (2.5 } (2.5 MG/3ML) MG/3ML) MG/3ML) 0.083% 0.083% 0.083% amLODIPine amLODIPine No QD amLODIPine Besylate 10 Besylate 10 Besylate MG MG 10 MG amLODIPine amLODIPine No QD amLODIPine Besylate 10 Besylate 10 Besylate MG MG 10 MG Atorvastati Atorvastati No QD Atorvastat n Calcium n Calcium in Calcium 20 MG 20 MG 20 MG Olmesartan Olmesartan No 1{table QD Olmesartan Medoxomil Medoxomil t} Medoxomil 20 MG 20 MG 20 MG amLODIPine amLODIPine No QD amLODIPine Besylate 10 Besylate 10 Besylate MG MG 10 MG glipiZIDE glipiZIDE No 1{table QD glipiZIDE XL 5 MG XL 5 MG t_with_ XL 5 MG food} ProAir HFA ProAir HFA No 2{puffs ProAir HFA 108 (90 108 (90 _as_nee 108 (90 Base) Base) ded} Base) MCG/ACT MCG/ACT MCG/ACT Atorvastati Atorvastati No QD Atorvastat n Calcium n Calcium in Calcium 20 MG 20 MG 20 MG Jentadueto Jentadueto No 2{table QD Jentadueto XR 2.5-1000 XR 2.5-1000 ts_with XR MG MG _a_meal 2.5-1000 } MG Albuterol Albuterol No 3{ml_as QID Albuterol Sulfate Sulfate _needed Sulfate (2.5 (2.5 } (2.5 MG/3ML) MG/3ML) MG/3ML) 0.083% 0.083% 0.083% amLODIPine amLODIPine No QD amLODIPine Besylate 10 Besylate 10 Besylate MG MG 10 MG Atorvastati Atorvastati No QD Atorvastat n Calcium n Calcium in Calcium 20 MG 20 MG 20 MG Olmesartan Olmesartan No 1{table QD Olmesartan Medoxomil Medoxomil t} Medoxomil 20 MG 20 MG 20 MG amLODIPine amLODIPine No QD amLODIPine Besylate 10 Besylate 10 Besylate MG MG 10 MG glipiZIDE glipiZIDE No 1{table QD glipiZIDE XL 5 MG XL 5 MG t_with_ XL 5 MG food} ProAir HFA ProAir HFA No 2{puffs ProAir HFA 108 (90 108 (90 _as_nee 108 (90 Base) Base) ded} Base) MCG/ACT MCG/ACT MCG/ACT Atorvastati Atorvastati No QD Atorvastat n Calcium n Calcium in Calcium 20 MG 20 MG 20 MG Jentadueto Jentadueto No 2{table QD Jentadueto XR 2.5-1000 XR 2.5-1000 ts_with XR MG MG _a_meal 2.5-1000 } MG Albuterol Albuterol No 3{ml_as QID Albuterol Sulfate Sulfate _needed Sulfate (2.5 (2.5 } (2.5 MG/3ML) MG/3ML) MG/3ML) 0.083% 0.083% 0.083% glipiZIDE glipiZIDE No 1{table QD glipiZIDE XL 5 MG XL 5 MG t_with_ XL 5 MG food} ProAir HFA ProAir HFA No 2{puffs ProAir HFA 108 (90 108 (90 _as_nee 108 (90 Base) Base) ded} Base) MCG/ACT MCG/ACT MCG/ACT Jentadueto Jentadueto No 2{table QD Jentadueto XR 2.5-1000 XR 2.5-1000 ts_with XR MG MG _a_meal 2.5-1000 } MG amLODIPine amLODIPine No QD amLODIPine Besylate 10 Besylate 10 Besylate MG MG 10 MG Atorvastati Atorvastati No QD Atorvastat n Calcium n Calcium in Calcium 20 MG 20 MG 20 MG Atorvastati Atorvastati No QD Atorvastat n Calcium n Calcium in Calcium 20 MG 20 MG 20 MG Albuterol Albuterol No 3{ml_as QID Albuterol Sulfate Sulfate _needed Sulfate (2.5 (2.5 } (2.5 MG/3ML) MG/3ML) MG/3ML) 0.083% 0.083% 0.083% Olmesartan Olmesartan No 1{table QD Olmesartan Medoxomil Medoxomil t} Medoxomil 20 MG 20 MG 20 MG amLODIPine amLODIPine No QD amLODIPine Besylate 10 Besylate 10 Besylate MG MG 10 MG Atorvastati Atorvastati No QD Atorvastat n Calcium n Calcium in Calcium 20 MG 20 MG 20 MG ProAir HFA ProAir HFA No 2{puffs ProAir HFA 108 (90 108 (90 _as_nee 108 (90 Base) Base) ded} Base) MCG/ACT MCG/ACT MCG/ACT amLODIPine amLODIPine No QD amLODIPine Besylate 10 Besylate 10 Besylate MG MG 10 MG Atorvastati Atorvastati No QD Atorvastat n Calcium n Calcium in Calcium 20 MG 20 MG 20 MG amLODIPine amLODIPine No QD amLODIPine Besylate 10 Besylate 10 Besylate MG MG 10 MG Olmesartan Olmesartan No 1{table QD Olmesartan Medoxomil Medoxomil t} Medoxomil 20 MG 20 MG 20 MG Albuterol Albuterol No 3{ml_as QID Albuterol Sulfate Sulfate _needed Sulfate (2.5 (2.5 } (2.5 MG/3ML) MG/3ML) MG/3ML) 0.083% 0.083% 0.083% glipiZIDE glipiZIDE No 1{table QD glipiZIDE XL 5 MG XL 5 MG t_with_ XL 5 MG food} Jentadueto Delisatadueto No 2{table QD Jentadueto XR 2.5-1000 XR 2.5-1000 ts_with XR MG MG _a_meal 2.5-1000 } MG Olmesartan Olmesartan No 1{table QD Olmesartan Medoxomil Medoxomil t} Medoxomil 20 MG 20 MG 20 MG ProAir HFA ProAir HFA No 2{puffs ProAir HFA 108 (90 108 (90 _as_nee 108 (90 Base) Base) ded} Base) MCG/ACT MCG/ACT MCG/ACT Albuterol Albuterol No 3{ml_as QID Albuterol Sulfate Sulfate _needed Sulfate (2.5 (2.5 } (2.5 MG/3ML) MG/3ML) MG/3ML) 0.083% 0.083% 0.083% Konrad Silvestre No 2{table QD Jentadueto XR 2.5-1000 XR 2.5-1000 ts_with XR MG MG _a_meal 2.5-1000 } MG amLODIPine amLODIPine No QD amLODIPine Besylate 10 Besylate 10 Besylate MG MG 10 MG amLODIPine amLODIPine No QD amLODIPine Besylate 10 Besylate 10 Besylate MG MG 10 MG Atorvastati Atorvastati No QD Atorvastat n Calcium n Calcium in Calcium 20 MG 20 MG 20 MG Atorvastati Atorvastati No QD Atorvastat n Calcium n Calcium in Calcium 20 MG 20 MG 20 MG glipiZIDE glipiZIDE No 1{table QD glipiZIDE XL 5 MG XL 5 MG t_with_ XL 5 MG food} Olmesartan Olmesartan No 1{table QD Olmesartan Medoxomil Medoxomil t} Medoxomil 20 MG 20 MG 20 MG ProAir HFA ProAir HFA No 2{puffs ProAir HFA 108 (90 108 (90 _as_nee 108 (90 Base) Base) ded} Base) MCG/ACT MCG/ACT MCG/ACT glipiZIDE glipiZIDE No 1{table QD glipiZIDE XL 5 MG XL 5 MG t_with_ XL 5 MG food} amLODIPine amLODIPine No QD amLODIPine Besylate 10 Besylate 10 Besylate MG MG 10 MG Jentadueto Jentadueto No 2{table QD Jentadueto XR 2.5-1000 XR 2.5-1000 ts_with XR MG MG _a_meal 2.5-1000 } MG Atorvastati Atorvastati No QD Atorvastat n Calcium n Calcium in Calcium 20 MG 20 MG 20 MG Albuterol Albuterol No 3{ml_as QID Albuterol Sulfate Sulfate _needed Sulfate (2.5 (2.5 } (2.5 MG/3ML) MG/3ML) MG/3ML) 0.083% 0.083% 0.083% Olmesartan Olmesartan No 1{table QD Olmesartan Medoxomil Medoxomil t} Medoxomil 20 MG 20 MG 20 MG ProAir HFA ProAir HFA No 2{puffs ProAir HFA 108 (90 108 (90 _as_nee 108 (90 Base) Base) ded} Base) MCG/ACT MCG/ACT MCG/ACT glipiZIDE glipiZIDE No 1{table QD glipiZIDE XL 5 MG XL 5 MG t_with_ XL 5 MG food} amLODIPine amLODIPine No QD amLODIPine Besylate 10 Besylate 10 Besylate MG MG 10 MG Jentadueto Jentadueto No 2{table QD Jentadueto XR 2.5-1000 XR 2.5-1000 ts_with XR MG MG _a_meal 2.5-1000 } MG Atorvastati Atorvastati No QD Atorvastat n Calcium n Calcium in Calcium 20 MG 20 MG 20 MG Albuterol Albuterol No 3{ml_as QID Albuterol Sulfate Sulfate _needed Sulfate (2.5 (2.5 } (2.5 MG/3ML) MG/3ML) MG/3ML) 0.083% 0.083% 0.083% Olmesartan Olmesartan No 1{table QD Olmesartan Medoxomil Medoxomil t} Medoxomil 20 MG 20 MG 20 MG ProAir HFA ProAir HFA No 2{puffs ProAir HFA 108 (90 108 (90 _as_nee 108 (90 Base) Base) ded} Base) MCG/ACT MCG/ACT MCG/ACT glipiZIDE glipiZIDE No 1{table QD glipiZIDE XL 5 MG XL 5 MG t_with_ XL 5 MG food} amLODIPine amLODIPine No QD amLODIPine Besylate 10 Besylate 10 Besylate MG MG 10 MG Jentadueto Jentadueto No 2{table QD Jentadueto XR 2.5-1000 XR 2.5-1000 ts_with XR MG MG _a_meal 2.5-1000 } MG Atorvastati Atorvastati No QD Atorvastat n Calcium n Calcium in Calcium 20 MG 20 MG 20 MG Albuterol Albuterol No 3{ml_as QID Albuterol Sulfate Sulfate _needed Sulfate (2.5 (2.5 } (2.5 MG/3ML) MG/3ML) MG/3ML) 0.083% 0.083% 0.083% amLODIPine amLODIPine No QD amLODIPine Besylate 10 Besylate 10 Besylate MG MG 10 MG glipiZIDE glipiZIDE No 1{table QD glipiZIDE XL 5 MG XL 5 MG t_with_ XL 5 MG food} Atorvastati Atorvastati No QD Atorvastat n Calcium n Calcium in Calcium 20 MG 20 MG 20 MG Olmesartan Olmesartan No 1{table QD Olmesartan Medoxomil Medoxomil t} Medoxomil 20 MG 20 MG 20 MG Jentadueto Jentadueto No 2{table QD Jentadueto XR 2.5-1000 XR 2.5-1000 ts_with XR MG MG _a_meal 2.5-1000 } MG ProAir HFA ProAir HFA No 2{puffs ProAir HFA 108 (90 108 (90 _as_nee 108 (90 Base) Base) ded} Base) MCG/ACT MCG/ACT MCG/ACT Albuterol Albuterol No 3{ml_as QID Albuterol Sulfate Sulfate _needed Sulfate (2.5 (2.5 } (2.5 MG/3ML) MG/3ML) MG/3ML) 0.083% 0.083% 0.083% amLODIPine amLODIPine No QD amLODIPine Besylate 10 Besylate 10 Besylate MG MG 10 MG glipiZIDE glipiZIDE No 1{table QD glipiZIDE XL 5 MG XL 5 MG t_with_ XL 5 MG food} Atorvastati Atorvastati No QD Atorvastat n Calcium n Calcium in Calcium 20 MG 20 MG 20 MG Olmesartan Olmesartan No 1{table QD Olmesartan Medoxomil Medoxomil t} Medoxomil 20 MG 20 MG 20 MG Jentadueto Jentadueto No 2{table QD Jentadueto XR 2.5-1000 XR 2.5-1000 ts_with XR MG MG _a_meal 2.5-1000 } MG ProAir HFA ProAir HFA No 2{puffs ProAir HFA 108 (90 108 (90 _as_nee 108 (90 Base) Base) ded} Base) MCG/ACT MCG/ACT MCG/ACT Albuterol Albuterol No 3{ml_as QID Albuterol Sulfate Sulfate _needed Sulfate (2.5 (2.5 } (2.5 MG/3ML) MG/3ML) MG/3ML) 0.083% 0.083% 0.083% Olmesartan Olmesartan No 1{table QD Olmesartan Medoxomil Medoxomil t} Medoxomil 20 MG 20 MG 20 MG FreeStyle FreeStyle No FreeStyle Lite Test - Lite Test - Lite Test - Atorvastati Atorvastati No QD Atorvastat n Calcium n Calcium in Calcium 20 MG 20 MG 20 MG Jentadueto Jentadueto No 2{table QD Jentadueto XR 2.5-1000 XR 2.5-1000 ts_with XR MG MG _a_meal 2.5-1000 } MG amLODIPine amLODIPine No QD amLODIPine Besylate 10 Besylate 10 Besylate MG MG 10 MG glipiZIDE glipiZIDE No 1{table QD glipiZIDE XL 5 MG XL 5 MG t_with_ XL 5 MG food} Olmesartan Olmesartan No 1{table QD Olmesartan Medoxomil Medoxomil t} Medoxomil 20 MG 20 MG 20 MG FreeStyle FreeStyle No FreeStyle Lite Test - Lite Test - Lite Test - Atorvastati Atorvastati No QD Atorvastat n Calcium n Calcium in Calcium 20 MG 20 MG 20 MG Jentadueto Jentadueto No 2{table QD Jentadueto XR 2.5-1000 XR 2.5-1000 ts_with XR MG MG _a_meal 2.5-1000 } MG amLODIPine amLODIPine No QD amLODIPine Besylate 10 Besylate 10 Besylate MG MG 10 MG glipiZIDE glipiZIDE No 1{table QD glipiZIDE XL 5 MG XL 5 MG t_with_ XL 5 MG food} glipiZIDE glipiZIDE No 1{table QD glipiZIDE XL 5 MG XL 5 MG t_with_ XL 5 MG food} FreeStyle FreeStyle No FreeStyle Lite Test - Lite Test - Lite Test - Atorvastati Atorvastati No QD Atorvastat n Calcium n Calcium in Calcium 20 MG 20 MG 20 MG amLODIPine amLODIPine No QD amLODIPine Besylate 10 Besylate 10 Besylate MG MG 10 MG Jentadueto Jentadueto No 2{table QD Jentadueto XR 2.5-1000 XR 2.5-1000 ts_with XR MG MG _a_meal 2.5-1000 } MG Olmesartan Olmesartan No 1{table QD Olmesartan Medoxomil Medoxomil t} Medoxomil 20 MG 20 MG 20 MG glipiZIDE glipiZIDE No 1{table QD glipiZIDE XL 5 MG XL 5 MG t_with_ XL 5 MG food} FreeStyle FreeStyle No FreeStyle Lite Test - Lite Test - Lite Test - Atorvastati Atorvastati No QD Atorvastat n Calcium n Calcium in Calcium 20 MG 20 MG 20 MG amLODIPine amLODIPine No QD amLODIPine Besylate 10 Besylate 10 Besylate MG MG 10 MG Jentadueto Delisatadueto No 2{table QD Jentadueto XR 2.5-1000 XR 2.5-1000 ts_with XR MG MG _a_meal 2.5-1000 } MG Olmesartan Olmesartan No 1{table QD Olmesartan Medoxomil Medoxomil t} Medoxomil 20 MG 20 MG 20 MG Olmesartan Olmesartan No 1{table QD Olmesartan Medoxomil Medoxomil t} Medoxomil 20 MG 20 MG 20 MG Olmesartan Olmesartan No 1{table QD Olmesartan Medoxomil Medoxomil t} Medoxomil 20 MG 20 MG 20 MG Atorvastati Atorvastati No QD Atorvastat n Calcium n Calcium in Calcium 20 MG 20 MG 20 MG Albuterol Albuterol No 3{ml_as QID Albuterol Sulfate Sulfate _needed Sulfate (2.5 (2.5 } (2.5 MG/3ML) MG/3ML) MG/3ML) 0.083% 0.083% 0.083% ProAir HFA ProAir HFA No 2{puffs ProAir HFA 108 (90 108 (90 _as_nee 108 (90 Base) Base) ded} Base) MCG/ACT MCG/ACT MCG/ACT Delisatadueto Maria Rdueto No 2{table QD Jentadueto XR 2.5-1000 XR 2.5-1000 ts_with XR MG MG _a_meal 2.5-1000 } MG amLODIPine amLODIPine No QD amLODIPine Besylate 10 Besylate 10 Besylate MG MG 10 MG amLODIPine amLODIPine No QD amLODIPine Besylate 10 Besylate 10 Besylate MG MG 10 MG Atorvastati Atorvastati No QD Atorvastat n Calcium n Calcium in Calcium 20 MG 20 MG 20 MG amLODIPine amLODIPine No QD amLODIPine Besylate 10 Besylate 10 Besylate MG MG 10 MG Atorvastati Atorvastati No QD Atorvastat n Calcium n Calcium in Calcium 20 MG 20 MG 20 MG Albuterol Albuterol No 3{ml_as QID Albuterol Sulfate Sulfate _needed Sulfate (2.5 (2.5 } (2.5 MG/3ML) MG/3ML) MG/3ML) 0.083% 0.083% 0.083% Jentadueto Jentadueto No 2{table QD Jentadueto XR 2.5-1000 XR 2.5-1000 ts_with XR MG MG _a_meal 2.5-1000 } MG Olmesartan Olmesartan No 1{table QD Olmesartan Medoxomil Medoxomil t} Medoxomil 20 MG 20 MG 20 MG amLODIPine amLODIPine No QD amLODIPine Besylate 10 Besylate 10 Besylate MG MG 10 MG Atorvastati Atorvastati No QD Atorvastat n Calcium n Calcium in Calcium 20 MG 20 MG 20 MG ProAir HFA ProAir HFA No 2{puffs ProAir HFA 108 (90 108 (90 _as_nee 108 (90 Base) Base) ded} Base) MCG/ACT MCG/ACT MCG/ACT ProAir HFA ProAir HFA No 2{puffs ProAir HFA 108 (90 108 (90 _as_nee 108 (90 Base) Base) ded} Base) MCG/ACT MCG/ACT MCG/ACT Jentadueto Jentadueto No 2{table QD Jentadueto XR 2.5-1000 XR 2.5-1000 ts_with XR MG MG _a_meal 2.5-1000 } MG Albuterol Albuterol No 3{ml_as QID Albuterol Sulfate Sulfate _needed Sulfate (2.5 (2.5 } (2.5 MG/3ML) MG/3ML) MG/3ML) 0.083% 0.083% 0.083% Atorvastati Atorvastati No QD Atorvastat n Calcium n Calcium in Calcium 20 MG 20 MG 20 MG Atorvastati Atorvastati No QD Atorvastat n Calcium n Calcium in Calcium 20 MG 20 MG 20 MG amLODIPine amLODIPine No QD amLODIPine Besylate 10 Besylate 10 Besylate MG MG 10 MG amLODIPine amLODIPine No QD amLODIPine Besylate 10 Besylate 10 Besylate MG MG 10 MG Immunizations Ordered Filled Immunization Date Status Comments Sour e Immunization Name Name FluAD FluAD 2021-07-26 [facility] FluAD FluAD 2021-07-26 [facility]00 [facility] FluAD FluAD 2021-07-26 [facility] FluAD FluAD 2021-07-26 Com[facility]:45:00 - [facility] FluAD FluAD 2021-07-26 Completed [facility]:45:00 - [facility] FluAD FluAD 2021-07-26 Com[facility]:45:00 - [facility] FluAD FluAD 2021-07-26 Com[facility]:00 - [facility] FluAD FluAD 2021-07-26 Com[facility]:45:00 - [facility] FluAD FluAD 2021-07-26 Com[facility] 15:45:00 - [facility] FluAD FluAD 2021-07-26 Completed [facility] 15:45:00 - [facility] FluAD FluAD 2021-07-26 Completed [facility] 15:45:00 - [facility] Pneumovax (PPSV23) Pneumovax (PPSV23) 2021-06-28 Completed [facility] 11:26:00 [facility] Pneumovax (PPSV23) Pneumovax (PPSV23) 2021-06-28 Completed [facility]:26:00 [facility] Pneumovax (PPSV23) Pneumovax (PPSV23) 2021-06-28 Completed [facility] 11:26:00 [facility] Pneumovax (PPSV23) Pneumovax (PPSV23) 2021-06-28 Completed [facility]:26:00 [facility] Pneumovax (PPSV23) Pneumovax (PPSV23) 2021-06-28 [facility]pleted [facility]:26:00 [facility] Pneumovax (PPSV23) Pneumovax (PPSV23) 2021-06-28 [facility]pleted [facility] 11:26:00 [facility] Pneumovax (PPSV23) Pneumovax (PPSV23) 2021-06-28 Completed [facility] 11:26:00 [facility] Pneumovax (PPSV23) Pneumovax (PPSV23) 2021-06-28 Completed [facility] 11:26:00 - [facility] Pneumovax (PPSV23) Pneumovax (PPSV23) 2021-06-28 Completed [facility] 11:26:00 [facility] Pneumovax (PPSV23) Pneumovax (PPSV23) 2021-06-28 Completed [facility]:26:00 [facility] Pneumovax (PPSV23) Pneumovax (PPSV23) 2021-06-28 Completed [facility] 11:26:00 - [facility] Pneumovax (PPSV23) Pneumovax (PPSV23) 2021-06-28 Completed [facility]:26:00 [facility] Pneumovax (PPSV23) Pneumovax (PPSV23) 2021-06-28 Completed [facility] 11:26:00 [facility] Prevnar 13 Prevnar 13 2020-06-20 Completed [facility] -Pneumonia Vaccine -Pneumonia Vaccine 14:25:00 [facility] Prevnar 13 Prevnar 13 2020-06-20 Completed [facility] -Pneumonia Vaccine -Pneumonia Vaccine 14::00 [facility] Prevnar 13 Prevnar 13 2020-06-20 Completed [facility] -[facility]neumonia Vaccine -Pneumonia Vaccine 14::00 [facility] Prevnar 13 Prevnar 13 2020-06-20 Completed [facility] -Pneumonia Vaccine -Pneumonia Vaccine 14:25:00 [facility] Prevnar 13 Prevnar 13 2020-06-20 Completed [facility] -Pneumonia Vaccine -Pneumonia Vaccine 14:25:00 [facility] Prevnar 13 Prevnar 13 2020-06-20 Completed [facility] -Pneumonia Vaccine -Pneumonia Vaccine 14::00 [facility] Prevnar 13 Prevnar 13 2020-06-20 Completed [facility] -Pneumonia Vaccine -Pneumonia Vaccine 14::00 [facility] Prevnar 13 Prevnar 13 2020-06-20 Completed [facility] -Pneumonia Vaccine -Pneumonia Vaccine 14::00 [facility] Prevnar 13 Prevnar 13 2020-06-20 Completed [facility] -Pneumonia Vaccine -Pneumonia Vaccine 14:25:00 [facility] Prevnar 13 Prevnar 13 2020-06-20 Completed [facility] -Pneumonia Vaccine -Pneumonia Vaccine 14:25:00 [facility] Prevnar 13 Prevnar 13 2020-06-20 Completed [facility] -Pneumonia Vaccine -Pneumonia Vaccine 14:25:00 [facility] Prevnar 13 Prevnar 13 2020-06-20 Completed [facility] -Pneumonia Vaccine -Pneumonia Vaccine 14:25:00 [facility] Prevnar 13 Prevnar 13 2020-06-20 Completed [facility] -Pneumonia Vaccine -Pneumonia Vaccine 14:25:00 [facility] Prevnar 13 Prevnar 13 2020-06-20 Completed [facility] -Pneumonia Vaccine -Pneumonia Vaccine 14:25:00 [facility] Prevnar 13 Prevnar 13 2020-06-20 Completed [facility] -Pneumonia Vaccine -Pneumonia Vaccine 14:25:00 [facility] Prevnar 13 Prevnar 13 2020-06-20 Completed [facility] -Pneumonia Vaccine -Pneumonia Vaccine 14:25:00 [facility] Prevnar 13 Prevnar 13 2020-06-20 Completed [facility] -Pneumonia Vaccine -Pneumonia Vaccine 14:25:00 [facility] Prevnar 13 Prevnar 13 2020-06-20 Completed [facility] -Pneumonia Vaccine -Pneumonia Vaccine 00:00:00 [facility] FluAD FluAD Unknown Completed [facility] Pneumovax (PPSV23) Pneumovax (PPSV23) Unknown Completed [facility] Prevnar 13 Prevnar 13 Unknown Completed [facility] -[facility]neum[facility] Vaccine -Pneumonia Vaccine - [facility] FluAD FluAD Unknown Completed [facility] Pneumovax (PPSV23) Pneumovax (PPSV23) Unknown Completed [facility] Prevnar 13 Prevnar [address] [facility] -Pneumonia Vaccine -Pneumonia Vaccine - [facility] FluAD FluAD Unknown Completed [facility] Pneumovax (PPSV23) Pneumovax (PPSV23) Unknown Completed [facility] Prevnar 13 Prevnar [address] [facility] -Pneumonia Vaccine -Pneumonia Vaccine [facility] FluAD FluAD Unknown Completed [facility] Pneumovax (PPSV23) Pneumovax (PPSV23) Unknown Completed [facility] Prevnar 13 Prevnar 13 Unknown Completed [facility] -Pneumonia Vaccine -Pneumonia Vaccine [facility] Vital Signs Vital Name Observation Time Observation Value Comments Source height 2022-12-14 09:00:00 65 [in_i] [facility] weight 2022-12-14 09:00:00 177.6 [lb_av] [facility] temperature 2022-12-14 09:00:00 98.6 [degF] [facility] bmi 2022-12-14 09:00:00 29.55 kg/m2 [facility] oximetry 2022-12-14 09:00:00 97 % [facility] respiratory rate 2022-12-14 09:00:00 16 /min [facility] blood pressure 2022-12-14 09:00:00 135 mm[Hg] [facility] - systolic [facility] blood pressure 2022-12-14 09:00:00 72 mm[Hg] [facility] diastolic [facility] Systolic blood 2022-08-11 20:46:00 164 mm[Hg] [facility] Diastolic blood 2022-08-11 20:46:00 91 mm[Hg] [facility] Heart rate 2022-08-11 20:46:00 58 /min [facility] Respiratory rate 2022-08-11 20:46:00 16 /min [facility] Oxygen saturation in 2022-08-11 20:46:00 97 /min [facility] Arterial blood by [facility] Pulse oximetry [facility] temperature 2022-08-11 18:22:00 36.67 Laura [facility] 2022-08-11 18:22:00 79.379 kg [facility] BMI 2022-08-11 18:22:00 30.04 kg/m2 [facility] height 2022-03-23 10:00:00 65 [in_i] [facility] weight 2022-03-23 10:00:00 182.5 [lb_av] [facility] temperature 2022-03-23 10:00:00 97.5 [degF] [facility] bmi 2022-03-23 10:00:00 30.37 kg/m2 [facility] oximetry 2022-03-23 10:00:00 95 % [facility] respiratory rate 2022-03-23 10:00:00 16 /min [facility] blood pressure 2022-03-23 10:00:00 132 mm[Hg] [facility] - systolic [facility] blood pressure 2022-03-23 10:00:00 74 mm[Hg] [facility] - diastolic [facility] height 2022-03-23 09:50:00 65 [in_i] [facility] weight 2022-03-23 09:50:00 182.5 [lb_av] [facility] temperature 2022-03-23 09:50:00 97.5 [degF] [facility] bmi 2022-03-23 09:50:00 30.37 kg/m2 [facility] oximetry 2022-03-23 09:50:00 93 % [facility] respiratory rate 2022-03-23 09:50:00 16 /min [facility] blood pressure 2022-03-23 09:50:00 132 mm[Hg] [facility] - systolic [facility] blood pressure 2022-03-23 09:50:00 74 mm[Hg] [facility] - diastolic [facility] height 2021-09-27 08:50:00 65 [in_i] [facility] weight 2021-09-27 08:50:00 180.1 [lb_av] [facility] temperature 2021-09-27 08:50:00 98.5 [degF] [facility] bmi 2021-09-27 08:50:00 29.97 kg/m2 [facility] oximetry 2021-09-27 08:50:00 94 % [facility] respiratory rate 2021-09-27 08:50:00 16 /min [facility] blood pressure 2021-09-27 08:50:00 135 mm[Hg] [facility] - systolic [facility] blood pressure 2021-09-27 08:50:00 72 mm[Hg] [facility] diastolic [facility] height 2021-09-12 08:20:00 65 [in_i] Common [facility] weight 2021-09-12 08:20:00 181 [lb_av] [facility] temperature 2021-09-12 08:20:00 97.8 [degF] [facility] bmi 2021-09-12 08:20:00 30.12 kg/m2 [facility] oximetry 2021-09-12 08:20:00 94 % Common [facility] blood pressure 2021-09-12 08:20:00 145 mm[Hg] Common [facility] - systolic [facility] blood pressure 2021-09-12 08:20:00 78 mm[Hg] [facility] height 2021-07-26 15:00:00 65 [in_i] Common [facility] weight 2021-07-26 15:00:00 175.8 [lb_av] Common [facility] temperature 2021-07-26 15:00:00 98.1 [degF] [facility] bmi 2021-07-26 15:00:00 29.25 kg/m2 [facility] oximetry 2021-07-26 15:00:00 96 % Common [facility] respiratory rate 2021-07-26 15:00:00 19 /min [facility] blood pressure 2021-07-26 15:00:00 134 mm[Hg] [facility] blood pressure 2021-07-26 15:00:00 77 mm[Hg] [facility] - diastolic [facility] height 2021-06-28 10:50:00 65 [in_i] Common S [facility]irit - [facility] weight 2021-06-28 10:50:00 181.1 [lb_av] Common [facility] temperature 2021-06-28 10:50:00 98.2 [degF] [facility] bmi 2021-06-28 10:50:00 30.13 kg/m2 Common S [facility] oximetry 2021-06-28 10:50:00 95 % [facility] respiratory rate 2021-06-28 10:50:00 17 /min Comm on [facility] blood pressure 2021-06-28 10:50:00 148 mm[Hg] [facility] - systolic [facility] blood pressure 2021-06-28 10:50:00 74 mm[Hg] Common [facility] - diastolic [facility] height 2021-06-22 11:20:00 65 [in_i] Common [facility] weight 2021-06-22 11:20:00 172 [lb_av] Common S pirit [facility] temperature 2021-06-22 11:20:00 97.8 [degF] Common S pirit [facility] bmi 2021-06-22 11:20:00 28.62 kg/m2 Common S pirit [facility] oximetry 2021-06-22 11:20:00 95 % Common S pirit [facility] blood pressure 2021-06-22 11:20:00 161 mm[Hg] [facility] - systolic [facility] blood pressure 2021-06-22 11:20:00 78 mm[Hg] Common [facility] Procedures Procedure Date / Time Performed Performing Clinician Indira e REFERRAL- 2023-01-23 05:01:00 Doctor Unassigned, No [facility] REQUEST/RESPONSE Name Medical Branch XR CERVICAL SPINE 3 VW 2022-08-11 18:56:43 Noah Reyes [facility] CONSENT/REFUSAL FOR 2022-08-11 17:58:42 Doctor Unassigned, No Un [facility] DIAGNOSIS AND Name Medical Branch TREATMENT US SCROTUM AND 2022-06-08 15:21:[address] [facility] o f [facility] Branch ASSIGNMENT OF BENEFITS 2022-06-08 14:31:57 Doctor Unassigned, No [facility] Medical Branch Encounters Start End Encounter Admission Attending Care Care Encounter Source Date/Time Date/Time Type Type Clinicians Facility Department ID 2023-08-20 Outpatient Moore, STLMLC STLC [id number] Common 10:10:00 Gus [id number] [facility] 2023-07-03 Outpatient Moore, STLMLC STLC [id number] Common 13:09:00 Gus [id number] [facility] 2022-12-12 Outpatient Omore, STLMLC STLMLC [id number] Common 07:22:00 Gus 48035 [facility] 2022-11-30 Outpatient Moore, STLMLC STLC [id number] Common 09:29:00 Gus 01723 [facility] 2022-06-21 Outpatient Moore, STLMLC STLMLC [id number] Common 10:44:00 Gus 15055 [facility] 2022-06-20 Outpatient Moore, STLMLC STLMLC [id number] Common 10:09:00 Gus 53235 [facility] 2022-03-21 Outpatient Moore, STLMLC STLMLC [id number] Common 09:00:01 Gus [facility] 2021-11-22 Outpatient Moore, STLMLC STLMLC [id number] Common 13:54:16 Gus 22856 [facility] 2021-11-22 Outpatient Moore, [facility] [id number] Common 13:45:00 Gus 34785 [facility] 2021-11-22 Outpatient Moore, [facility] [id number] Common 13:43:12 Gus 38822 [facility] 2021-11-22 Outpatient Moore, [facility] [id number] Common 13:04:42 Gus 68113 [facility] 2021-11-22 Outpatient Moore, [facility] [id number] Common 12:25:00 Gus [id number] [facility] 2021-11-22 Outpatient Moore, [facility] [id number] Common 11:39:39 Gus 13984 [facility] 2021-11-22 Outpatient Moore, [facility] [id number] Common 11:15:21 Gus [id number] [facility] 2021-11-22 Outpatient Moore, [facility] [id number] Common 11:10:24 Gus [id number] [facility] 2021-11-22 Outpatient Kourtney, [facility] [id number] Common 11:07:28 Kwame 78419 [facility] 2023-01-23 2023-01-23 Orders Doctor TRES [id number] Univers 00:00:00 00:00:00 Only Unassigned, NAIN [id number] [place] [facility] [id number] Matt as [id number] [place] [address] Branch 2023-01-15 2023-01-15 Telephone Roverto [facility] [id number] Univers 00:00:00 00:00:00 [facility] [id number] ity of [place] [id number] Matt as DEENA?BLEA [id number] [address] MEDICAL OFFICE BUILDING 2023-01-11 2023-01-11 Outpatient Matt CULLEN [facility] [id number] Univers 11:00:00 11:00:00 CHARMAINE church [facility] 2023-01-11 2023-01-11 (TEL) STLMLC STLMLC [id number] Co mmon 00:00:00 00:00:00 [facility] 2023-01-04 2023-01-04 (TEL) STLMLC STLMLC [id number] Co mmon 00:00:00 00:00:00 [facility] 2022-12-14 2022-12-14 OFFICE STLMLC STLMLC [id number] Co mmon 00:00:00 00:00:00 VISIT [facility] LEVEL 4 [facility] 2022-12-07 2022-12-07 (TEL) STLMLC STLMLC [id number] Co mmon 00:00:00 00:00:00 [facility] 2022-11-30 2022-11-30 (TEL) STLMLC STLMLC [id number] Co mmon 00:00:00 00:00:00 [facility] 2022-11-30 2022-11-30 (TEL) STLMLC STLMLC [id number] Co mmon 00:00:00 00:00:00 [facility] 2022-08-11 2022-08-11 Emergency X KIT [facility] ERT [id number] Univers 13:30:00 15:53:00 NOAH ranjit [facility] 2022-08-11 2022-08-11 Emergency [facility] [id number] Univers 13:30:00 15:53:00 Noah LY [id number] ity of [place] [id number] [facility] [id number] [facility] 084 Branch 2022-06-08 2022-06-08 [facility] [id number] Univers 09:34:57 23:59:00 Rosalba LY [id number] ity of [place] [id number] [facility] [id number] [facility] 806 Branch 2022-06-08 2022-06-08 Outpatient R MURALI [facility] [id number] Univers 09:34:57 23:59:00 NICOLE itmackenzie of [facility] 2022-06-08 2022-06-08 Orders Doctor TRES [id number] Univers 00:00:00 00:00:00 Only Unassigned, NAIN [id number] it[place] [facility] [id number] Matt as [id number] [facility] 009 Branch 2022-03-27 2022-03-27 (TEL) STLMLC STLMLC [id number] Co mmon 00:00:00 00:00:00 [facility] 2022-03-23 2022-03-23 (MCR WELL) STLMLC STLMLC [id number] Common 00:00:00 00:00:00 Medicare Spiri t [facility] - [facility] 2022-03-23 2022-03-23 OFFICE STLMLC STLMLC [id number] Co mmon 00:00:00 00:00:00 VISIT Spirit ESTAB PT - CHI LEVEL 4 [facility] 2022-01-23 2022-01-23 (TEL) STLMLC STLMLC [id number] Co mmon 00:00:00 00:00:00 [facility] 2021-12-04 2021-12-04 (TEL) STLMLC STLMLC [id number] Co mmon 00:00:00 00:00:00 Spirit - [facility] 2021-09-27 2021-09-27 OFFICE STLMLC STLMLC [id number] Co mmon 00:00:00 00:00:00 VISIT Spirit ESTAB PT - CHI LEVEL 4 [facility] 2021-09-12 2021-09-12 OFFICE STLMLC STLMLC [id number] Co mmon 00:00:00 00:00:00 VISIT EST Spir it PT LEVEL 3 - [facility] 2021-09-11 2021-09-11 (TEL) STLMLC STLMLC [id number] Co mmon 00:00:00 00:00:00 [facility] 2021-07-26 2021-07-26 OFFICE STLMLC STLMLC [id number] Co mmon 00:00:00 00:00:00 VISIT EST Spir it PT LEVEL 3 [facility] 2021-07-13 2021-07-13 (TEL) STLMLC STLMLC [id number] Co mmon 00:00:00 00:00:00 [facility] 2021-06-28 2021-06-28 OFFICE STLMLC STLMLC [id number] Co mmon 00:00:00 00:00:00 VISIT Spirit [facility] LEVEL 4 [facility] 2021-06-22 2021-06-22 OFFICE STLMLC STLMLC [id number] Co mmon 00:00:00 00:00:00 VISIT EST Spir it PT LEVEL 3 [facility] 2021-06-21 2021-06-21 (TEL) STLMLC STLMLC [id number] Co mmon 00:00:00 00:00:00 [facility] 2021-06-20 2021-06-20 (TEL) STLMLC STLMLC [id number] Co mmon 00:00:00 00:00:00 [facility] 2021-04-11 2021-04-11 (TEL) STLMLC STLMLC [id number] Co mmon 00:00:00 00:00:00 [facility] 2021-03-22 2021-03-22 Outpatient STLMLC STLMLC [id number] Common 00:00:00 00:00:00 [facility] 2021-03-20 2021-03-20 Outpatient STLMLC STLMLC [id number] Common 00:00:00 00:00:00 [facility] 2021-03-14 2021-03-14 Outpatient STLMLC STLMLC [id number] Common 00:00:00 00:00:00 [facility] 2020-12-22 2020-12-22 Outpatient STLMLC STLMLC [id number] Common 00:00:00 00:00:00 [facility] 2020-12-19 2020-12-19 Outpatient STLMLC STLMLC [id number] Common 00:00:00 00:00:00 [facility] 2020-12-07 2020-12-07 Outpatient STLMLC STLMLC [id number] Common 00:00:00 00:00:00 [facility] 2020-11-22 2020-11-22 Outpatient STLMLC STLMLC [id number] Common 00:00:00 00:00:00 [facility] 2020-11-21 2020-11-21 Outpatient STLMLC STLMLC [id number] Common 00:00:00 00:00:00 [facility] 2020-11-21 2020-11-21 Outpatient STLMLC STLMLC [id number] Common 00:00:00 00:00:00 [facility] 2020-11-02 2020-11-02 Outpatient STLMLC STLMLC [id number] Common 00:00:00 00:00:00 [facility] 2020-08-26 2020-08-26 Outpatient STLMLC STLMLC [id number] Common 00:00:00 00:00:00 [facility] 2020-06-20 2020-06-20 [facility] [id number] Common 14:29:00 14:29:[address] [facility] 2020-06-20 2020-06-20 Outpatient [facility] [id number] Common 14:00:00 14:00:[address] [facility] 2020-06-16 2020-06-16 Outpatient [facility] [id number] Common 15:45:00 15:45:[address] [facility] 2020-04-22 2020-04-22 Outpatient [facility] [id number] Common 13:40:00 13:40:[address] [facility] 2020-04-21 2020-04-21 Outpatient [facility] [id number] Common 12:09:00 12:09:[address] Family - [facility] 2020-04-14 2020-04-14 Outpatient [facility] [id number] Common 06:56:00 06:56:[address] [facility] 2020-01-21 2020-01-21 [facility] [id number] Common 15:45:00 15:45:[address] Family - [facility] 2019-12-25 2019-12-25 Out[facility] [id number] Common 15:52:00 15:52:[address] Family [facility] 2019-12-24 2019-12-24 Outpatient [facility] [id number] Common 16:00:00 16:00:[address] [facility] 2019-12-23 2019-12-23 Out[facility] [id number] Common 15:30:00 15:30:[address] [facility] 2019-02-25 2019-02-25 Out[facility] [id number] Common 08:53:00 08:53:[address] [facility] 2019-01-14 2019-01-14 Out[facility] [id number] Common 16:00:00 16:00:[address] [facility] - [facility] 2018-12-31 2018-12-31 Out[facility] [id number] Common 16:00:00 16:00:[address] [facility] - [facility] 2018-10-23 2018-10-23 Out[facility] [id number] Common 16:15:00 16:15:[address] [facility] - [facility] Results Test Description Test Time Test Comments Results Result Comments Source HEMOGLOBIN A1C 2021-07-26 00:00:00 Test Item Value Reference Range Interpretation Comme nts A1C (test code = 4548-4) 8.9
[2023-08-26 13:31] LABS: Absolute Lymphocytes (CBC) 1.6 K/uL (0.7-4.9); Lymphocytes % 20.8 % (15.3-44.8); MCV 96.5 fL (80-100); MPV 8.3 fL (7.6-11.3); Platelets 222 thou/uL (152-406); RBC Red Blood Cell Count 4.46 M/uL (4.33-5.43)
[2023-08-26] MEDS ORDERED: NA CHLORIDE 0.9% 1,000 ML ONE (13:47)
[2023-08-26] MEDS ORDERED: METOCLOPRAMIDE 10 MG/2mL INJ ONE (13:47)
[2023-08-26] MEDS ORDERED: DIPHENHYDRAMINE 50 MG/ML VIAL ONE (13:47)
[2023-08-26 13:49] LABS: Troponin High Sensitivity 4.9 pg/mL (<58.9)
--- NOTE | 2023-08-26 14:01 | RAD REPORT ---
EXAM DESCRIPTION: RADChest Single View08/26/2023 1:51 pm CLINICAL HISTORY: Jt COMPARISON: Chest Single View dated 03/06/2019; Chest Pa And Lat (2 Views) dated 11/07/2018; Chest Sin gle View dated 09/21/2016; Chest Single View dated 08/10/2016 TECHNIQUE: Portable AP view of the chest. FINDINGS: The lungs are clear. No pneumothorax or effusion. The cardiomediastinal contours are unre markable. IMPRESSION: No acute cardiopulmonary process.
--- NOTE | 2023-08-26 14:09 | EDPHYS ---
Physician Documentation [facility] Name: Mookie Simons Age: 68 yrs Sex: Male : 1955 Arrival Date: 08/26/2023 Time: 12:57 Bed 17 Private MD: ED Physician Saad Ivy HPI: 08/26 13:42 This 68 yrs old Male presents to ER via Ambulatory with complaints of High ec2 Blood Pressure. 13:42 Patient arrives today due to concern for headache. Patient reports that he has been ec2 dealing with a lot of stress at home and has been having occasional headache. Patient reports no nausea or vomiting, no head trauma. Patient reports some occasional chest palpitations as well. Patient reports no chest pain or shortness of breath, denies any leg swelling. Patient does report some anxiety. Patient complains of history of hypertension, diabetes, hyperlipidemia.. Historical: - Allergies: 13:16 No Known Allergies; os - Home Meds: 13:16 chlorthalidone 25 mg Oral tab 1 tab once daily [Active]; Jardiance 25 mg Oral tab 1 tab os once daily [Active]; lisinopril 10 mg Oral tab 1 tab once daily [Active]; - PMHx: 13:16 Diabetes - NIDDM; Hypertension; os - Immunization history:: Adult Immunizations not immunized. - Social history:: Smoking status: Patient denies any tobacco usage or history of. ROS: 13:42 Constitutional: as per hpi ec2 Exam: 13:42 Constitutional: GEN: NAD Head: atraumatic Eyes: EOMI Ears: External ears are ec2 normal. CV: regular rate LUNGS: no respiratory distress ABD: non-distended SKIN: no evidence of rashes MSK: no evidence of trauma NEURO: moves all extremities equally Vital Signs: 13:12 BP 136 / 79; Pulse 69; Resp 18; Temp 98.4; Pulse Ox 100% ; Weight 83.01 kg; os 13:54 BP 125 / 69; Pulse 57; Resp 17 S; Pulse Ox 97% on R/A; kc6 MDM: 13:10 Patient medically screened. ec2 13:25 ED course: EKG independently reviewed and interpreted by me, shows normal sinus rhythm, ec2 rate of 61, no acute ST segment elevations, nonconcerning intervals. . 13:42 Data reviewed: vital signs. ED course: Patient arrives today due to concern for ec2 headache. Examination remarkable for well-appearing nontoxic individual with reassuring vital signs. Will obtain lab work, EKG already obtained as above, will treat the patient is moved to crystalloid, Reglan, Benadryl.. 14:08 ED course: Patient's lab work remarkable for a reassuring metabolic profile, CBC is ec2 reassuring, troponin within normal ranges, chest x-ray with no acute intrathoracic process. No evidence of endorgan damage identified on lab work, patient ultimately with reassuring work-up and reassuring examination. I will discharge to home and follow-up with primary care doctor. Return precautions given. . 08/26 13:11 Order name: Basic Metabolic Panel; Complete Time: 14:08 ec2 08/26 13:11 Order name: CBC with Diff; Complete Time: 14:08 ec2 08/26 13:11 Order name: Troponin HS; Complete Time: 14:08 ec2 08/26 13:11 Order name: XRAY Chest (1 view); Complete Time: 14:08 ec2 08/26 13:11 Order name: EKG; Complete Time: 13:11 ec2 08/26 13:11 Order name: Cardiac monitoring; Complete Time: 13:32 ec2 08/26 13:11 Order name: EKG - Nurse/Tech; Complete Time: 13:19 ec2 08/26 13:11 Order name: IV Saline Lock; Complete Time: 13:26 ec2 08/26 13:11 Order name: Labs collected and sent; Complete Time: 13:26 ec2 08/26 13:11 Order name: O2 Per Protocol; Complete Time: 13:23 ec2 08/26 13:11 Order name: O2 Sat Monitoring; Complete Time: 13:23 ec2 Administered Medications: 13:43 Drug: NS 0.9% IV 1000 ml IV at 1 bolus Per protocol; 1000 mL bolus Route: IV; Rate: 1 kc6 bolus; Site: right antecubital; 14:28 Follow up: Response: No adverse reaction; IV Status: Completed infusion; IV Intake: kc6 500ml 13:43 Drug: metoCLOPramide IVP 10 mg IVP once; over 1 to 2 minutes Route: IVP; Site: right kc6 antecubital; 14:12 Follow up: Response: No adverse reaction kc6 13:43 Drug: diphenhydrAMINE IVP 25 mg IVP once Route: IVP; Site: right antecubital; kc6 14:12 Follow up: Response: No adverse reaction kc6 Disposition Summary: 08/26/23 14:08 Discharge Ordered Notes: Location: Home ec2 Condition: Stable ec2 Diagnosis - Headache ec2 Discharge Instructions: - Discharge Summary Sheet ec2 - General Headache Without Cause ec2 Forms: - Medication Reconciliation Form ec2 - Thank You Letter ec2 - Antibiotic Education ec2 - Prescription Opioid Use ec2 - Patient Portal Instructions ec2 - Leadership Thank You Letter ec2 Signatures: Dispatcher [employer] Roma Boston RN RN kc6 Armen Martinez RN RN os Corral, Edwin, MD MD ec2
--- NOTE | 2023-08-26 14:09 | ER ---
Nurse's Notes [facility] Name: Mookie Simons Age: 68 yrs Sex: Male : 1955 Arrival Date: 08/26/2023 Time: 12:57 Bed 17 Private MD: Diagnosis: Headache Presentation: 08/26 13:12 Chief complaint: Patient states: Patient c/o hypertension and palpitation for the past os 7 days on and off. Patient states, " I've been having blurred vision \\T\\ headache whenever my blood pressure goes high". Coronavirus screen: Vaccine status: Patient reports being unvaccinated. At this time, the client does not indicate any symptoms associated with coronavirus-19. Ebola Screen: No symptoms or risks identified at this time. Initial Sepsis Screen: Does the patient meet any 2 criteria? No. Patient's initial sepsis screen is negative. Does the patient have a suspected source of infection? No. Patient's initial sepsis screen is negative. Risk Assessment: Do you want to hurt yourself or someone else? Patient reports no desire to harm self or others. Onset of symptoms was August 19, 2023. 13:12 Method Of Arrival: Ambulatory os 13:12 Acuity: MARIBEL 3 os 13:15 Chief complaint:. os Historical: - Allergies: 13:16 No Known Allergies; os - Home Meds: 13:16 chlorthalidone 25 mg Oral tab 1 tab once daily [Active]; Jardiance 25 mg Oral tab 1 tab os once daily [Active]; lisinopril 10 mg Oral tab 1 tab once daily [Active]; - PMHx: 13:16 Diabetes - NIDDM; Hypertension; os - Immunization history:: Adult Immunizations not immunized. - Social history:: Smoking status: Patient denies any tobacco usage or history of. Screenin:51 [facility] ED Fall Risk Assessment (Adult) History of falling in the last 3 months, kc6 including since admission No falls in past 3 months (0 pts) Confusion or Disorientation No (0 pts) Intoxicated or Sedated No (0 pts) Impaired Gait No (0 pts) Mobility Assist Device Used No (0 pt) Altered Elimination No (0 pt) Score/Fall Risk Level 0 - 2 = Low Risk. Abuse screen: Denies threats or abuse. Denies injuries from another. Nutritional screening: No deficits noted. Tuberculosis screening: No symptoms or risk factors identified. Assessment: 13:53 General: Appears in no apparent distress. comfortable, Behavior is calm, cooperative, kc6 appropriate for age. Pain: Complains of pain in "headache". Neuro: Level of Consciousness is awake, alert, obeys commands, Oriented to person, place, time, situation, Appropriate for age Reports headache. Cardiovascular: Reports palpitations, Heart tones S1 S2 present Capillary refill < 3 seconds Rhythm is sinus rhythm. Respiratory: Airway is patent Trachea midline Respiratory effort is even, unlabored, Respiratory pattern is regular, symmetrical. GI: No signs and/or symptoms were reported involving the gastrointestinal system. : No signs and/or symptoms were reported regarding the genitourinary system. EENT: Reports blurred vision. Derm: No signs and/or symptoms reported regarding the dermatologic system. Skin is intact, is healthy with good turgor, Skin is pink, warm \\T\\ dry. Musculoskeletal: No signs and/or symptoms reported regarding the musculoskeletal system. Circulation, motion, and sensation intact. Capillary refill < 3 seconds, Range of motion: intact in all extremities. Vital Signs: 13:12 BP 136 / 79; Pulse 69; Resp 18; Temp 98.4; Pulse Ox 100% ; Weight 83.01 kg; os 13:54 BP 125 / 69; Pulse 57; Resp 17 S; Pulse Ox 97% on R/A; kc6 ED Course: 13:00 Patient arrived in ED. mr 13:10 Saad Ivy MD is Attending Physician. ec2 13:14 Triage completed. os 13:23 Roma Delatorre RN is Primary Nurse. kc6 13:26 Basic Metabolic Panel Sent. bc6 13:26 CBC with Diff Sent. bc6 13:26 Troponin HS Sent. bc6 13:26 Inserted saline lock: 20 gauge in right antecubital area, using aseptic technique. bc6 Blood collected. 13:52 XRAY Chest (1 view) In Process Unspecified. EDMS 13:53 Patient has correct armband on for positive identification. Placed in gown. Bed in low kc6 position. Call light in reach. Side rails up X2. Client placed on continuous cardiac and pulse oximetry monitoring. NIBP monitoring applied. telemetry monitor on. 13:53 Arm band placed on. kc6 14:28 No provider procedures requiring assistance completed. IV discontinued, intact, kc6 bleeding controlled, No redness/swelling at site. Pressure dressing applied. Administered Medications: 13:43 Drug: NS 0.9% IV 1000 ml IV at 1 bolus Per protocol; 1000 mL bolus Route: IV; Rate: 1 kc6 bolus; Site: right antecubital; 14:28 Follow up: Response: No adverse reaction; IV Status: Completed infusion; IV Intake: kc6 500ml 13:43 Drug: metoCLOPramide IVP 10 mg IVP once; over 1 to 2 minutes Route: IVP; Site: right kc6 antecubital; 14:12 Follow up: Response: No adverse reaction kc6 13:43 Drug: diphenhydrAMINE IVP 25 mg IVP once Route: IVP; Site: right antecubital; kc6 14:12 Follow up: Response: No adverse reaction kc6 Medication: 14:28 VIS not applicable for this client. kc6 Intake: 14:28 IV: 500ml; Total: 500ml. kc6 Outcome: 14:08 Discharge ordered by . ec2 14:28 Discharged to home ambulatory, kc6 14:28 Condition: stable 14:28 Discharge instructions given to patient, Instructed on discharge instructions, follow up and referral plans. Demonstrated understanding of instructions, follow-up care, 14:34 Patient left the ED. kc6 Signatures: Dispatcher [employer] EDSimona Hdz, Reg Reg Roma Delatorre, RN RN kc6 Serenity Bailey Orest, RN RN os Saad Ivy MD MD ec2 Corrections: (The following items were deleted from the chart) 13:16 13:12 Chief complaint: Patient states: Patient c/o hypertension and palpitation for the os past 7 days on and off. os
[2023-08-26 14:38] VITALS: TEMP 98.4
[2023-08-26 14:40] VITALS: BP 125/69; O2SAT 97
--- NOTE | 2023-08-27 07:50 | EKG ---
Test Date: 2023-08-26 Test Time: 13:17:04 Zinc Miner: CARLYLE MEASUREMENT RESULTS: Intervals: Rate: 61 IL: 162 QRSD: 94 QT: 386 QTc: 388 [place]: P: 57 IL: 162 QRS: -36 T: 19 INTERPRETIVE STATEMENTS: Normal sinus rhythm Left axis deviation Abnormal ECG Compared to ECG 03/06/2019 00:42:28 Left-axis deviation now present Sinus bradycardia no longer present Electronically Signed On 08-27-23 07:49:35 CDT by Cullen Bass
== END 2023-08-26 14:34 | disposition home or self-care (01) ==
LOC: ER 12:57
DX: R51.9 Headache, unspecified (principal); I10 Essential (primary) hypertension; E11.9 Type 2 diabetes mellitus without complications
CPT/HCPCS: 96361; 93005; 85025; 80048; 36415; 84484; 71045; 96375; 96374; 99285; J2765; J1200; J7030

== ENCOUNTER → 2024-01-20 | Emergency (ER) | payer OTHER ==
[~2024-01-20] MED LIST: FAMOTIDINE 20 MG TAB ONE; predniSONE 20 MG TAB ONE
--- OUTSIDE RECORDS SUMMARY | 2024-01-20 08:34 | XMS REPORT | Continuity of Care Document ---
Author Name Unknown Address [address] [facility]. [address] [place] [address] [facility] thconnect Address [address] [facility]. 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 Name Role Phone MYA SMITH Primary Care Physician Unavailab Gus Jimenez Attending Clinician Unavailable Kwame Oconnell Attending Clinician Unavailable Doctor Unassigned, [place] Attending Clinician U Behzad Covington MD Attending Clinician [phone] CHARMAINE CULLEN Attending Clinician Unavailable NOAH WILKINS Attending Clinician Unavailable Noah Wilkins NP Attending Clinician [phone] Nicole Carrion MD Attending Clinician [phone] NICOLE CARRION Attending Clinician Unavailable NOAH WILKINS Admitting Clinician Unavailable NICOLE CARRION Admitting Clinician Unavailable Payers Payer Name Policy Type Policy Number Effective Date Expirati on Date Source [facility]ICA SALAZAR [facility] [id number] 2022 00:00:00 [employer] Replace C1 [id number] 2019 00:00:00 [facility] [employer] Replace C1 [id number] 2019 00:00:00 [facility] [employer] Replace C1 [id number] 2019 00:00:00 [facility] [employer] Replace C1 [id number] 2019 00:00:00 [facility] [employer] Replace C1 [id number] 2019 00:00:00 [facility] [employer] Replace C1 [id number] 2019 00:00:00 [facility] [employer] Replace C1 [id number] 2019 00:00:00 [facility] [employer] Replace C1 [id number] 2019 00:00:00 [facility] [employer] Replace C1 [id number] 2019 00:00:00 [facility] [employer] Replace C1 [id number] 2019 00:00:00 [facility] Problems Condition Name Condition Details Condition Category Status Onset Date Resolution Date Last Treatment Date Treating Clinician Comments Source 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 Problem [facility] [id number] Screen for colon cancer Problem [facility] Decreased hearing Hearing decreased Problem [facility] Skin sensation disturbanc e Numbness and tingling Problem [facility] [id number] Stress and adjustment reaction Problem [facility] [id number] LYNNETTE (generaliz ed anxiety disorder) Problem [facility] Allergic rhinitis Non-season al allergic rhinitis, unspecifie d chronicity , unspecifie d trigger Problem [facility] [id number] Asbestos exposure Problem [facility] [id number] Noncomplia nce with dietary restrictio n Problem [facility] [id number] Essential hypertensi on Problem [facility] [id number] Hyperlipid emia, unspecifie d hyperlipid emia type Problem [facility] Microscopi c hematuria Microhemat uria Problem [facility] Elevated PSA Elevated PSA Problem [facility] [id number] Type 2 diabetes mellitus without complicati on, without long-term current use of insulin Problem [facility] [id number] Mixed hyperlipid emia Problem [facility] [id number] Type 2 diabetes mellitus with hyperglyce josh, without long-term current use of insulin Problem [facility] [id number] Chronic bronchitis , unspecifie d chronic bronchitis type Problem [facility] [id number] Dry eye Problem [facility] Allergies, Adverse Reactions, Alerts Allergy Name Allergy Type Status Severity Reaction(s) Onset Date Inactive Date Treating Clinician Comments Source NO KNOWN ALLERGIE S Drug Class Active [facility] Social History Social Habit Start Date Stop Date Quantity Comments Source History of Tobacco Use [facility] Sex Assigned At [facility] Exposure to SARS-CoV-2 (event) 2022-08-01 00:00:00 2022-08-11 13:22:00 Not sure [facility] Smoking Status Start Date Stop Date Source Unknown if ever smoked Commo n [facility] Never Smoker [facility] Former Smoker 2022-06-16 00:00:00 2022-06-16 00:00:00 [facility] Medications Ordered Medication Name Filled Medication Name Start Date Stop Date Current Medication? Ordering Clinician Indication Dosage Frequency Signature (SIG) Comments Components Source Pseudoeph-B romphen-DM 30-2-10 MG/5ML Pseudoeph-B romphen-DM 30-2-10 MG/5ML 2022-1014 00:00: 00 No 5{ml_as _needed } QID Pseudoeph- Bromphen-D M 30-2-10 MG/5ML Pseudoeph-B romphen-DM 30-2-10 MG/5ML Pseudoeph-B romphen-DM 30-2-10 MG/5ML 2023-1 -14 00:00: 00 No 5{ml_as _needed } QID Pseudoeph- Bromphen-D M 30-2-10 MG/5ML Pseudoeph-B romphen-DM 30-2-10 MG/5ML Pseudoeph-B romphen-DM 30-2-10 MG/5ML 2023-1 -14 00:00: 00 No 5{ml_as _needed } QID Pseudoeph- Bromphen-D M 30-2-10 MG/5ML Pseudoeph-B romphen-DM 30-2-10 MG/5ML Pseudoeph-B romphen-DM 30-2-10 MG/5ML 2023-1 -14 00:00: 00 No 5{ml_as _needed } QID Pseudoeph- Bromphen-D M 30-2-10 MG/5ML Pseudoeph-B romphen-DM 30-2-10 MG/5ML Pseudoeph-B romphen-DM 30-2-10 MG/5ML 2023-1 -14 00:00: 00 No 5{ml_as _needed } QID Pseudoeph- Bromphen-D M 30-2-10 MG/5ML Pseudoeph-B romphen-DM 30-2-10 MG/5ML Pseudoeph-B romphen-DM 30-2-10 MG/5ML 2023-1 -14 00:00: 00 No 5{ml_as _needed } QID Pseudoeph- Bromphen-D M 30-2-10 MG/5ML Pseudoeph-B romphen-DM 30-2-10 MG/5ML Pseudoeph-B romphen-DM 30-2-10 MG/5ML 2023-1 -14 00:00: 00 No 5{ml_as _needed } QID Pseudoeph- Bromphen-D M 30-2-10 MG/5ML Pseudoeph-B romphen-DM 30-2-10 MG/5ML Pseudoeph-B romphen-DM 30-2-10 MG/5ML 2023-1 -14 00:00: 00 No 5{ml_as _needed } QID Pseudoeph- Bromphen-D M 30-2-10 MG/5ML Pseudoeph-B romphen-DM 30-2-10 MG/5ML Pseudoeph-B romphen-DM 30-2-10 MG/5ML 3- 1-14 00:00: 00 No 5{ml_as _needed } QID Pseudoeph- Bromphen-D M 30-2-10 MG/5ML Cetirizine HCl 10 MG Cetirizine HCl 10 MG 2022-10 0-27 00:00: 00 No 1{table t} QD Cetirizine HCl 10 MG busPIRone HCl 15 MG busPIRone HCl 15 MG 2022-10 0-27 00:00: 00 No 1{table t} BID busPIRone HCl 15 MG Cetirizine HCl 10 MG Cetirizine HCl 10 MG 2022-10 0- 00:00: 00 No 1{table t} QD Cetirizine HCl 10 MG busPIRone HCl 15 MG busPIRone HCl 15 MG 2022-10 0- 00:00: 00 No 1{table t} BID busPIRone HCl 15 MG Cetirizine HCl 10 MG Cetirizine HCl 10 MG 2022-10 0-27 00:00: 00 No 1{table t} QD Cetirizine HCl 10 MG busPIRone HCl 15 MG busPIRone HCl 15 MG 2022-10 0-27 00:00: 00 No 1{table t} BID busPIRone HCl 15 MG Cetirizine HCl 10 MG Cetirizine HCl 10 MG 2022-10 0 00:00: 00 No 1{table t} QD Cetirizine HCl 10 MG busPIRone HCl 15 MG busPIRone HCl 15 MG 2022-10 0-27 00:00: 00 No 1{table t} BID busPIRone HCl 15 MG dexamethaso ne (DECADRON PHOSPHATE) injection 10 mg 2021-10 19:45: 00 08-11 19:45 :00 No 10mg 10 mg, Intramuscu lar, ONCE, 1 dose, On 08/11/22 at 1445, Routine [facility] methocarbam oL (ROBAXIN) tablet 1,500 mg 2021-10 19:30: 00 08-11 19:04 :00 No 1500mg 1,500 mg, Oral, ONCE, 1 dose, On 08/11/22 at 1430, Routine [facility] ibuprofen (IBU) tablet 600 mg 2021-10 18:45: 00 08-11 19:04 :00 No 600mg 600 mg, Oral, ONCE, 1 dose, On 08/11/22 at 1345, LORETA [facility] gabapentin (NEURONTIN) capsule 300 mg 2021-10 18:45: 00 08-11 19:04 :00 No 300mg 300 mg, Oral, ONCE, 1 dose, On 08/11/22 at 1345, LORETA [facility] linagliptin -metformin (JENTADUETO XR) 2.5-1,000 mg [facility] 2021-1015 15:21: 13 Yes Jentadueto XR 2.5 mg-1,000 mg tablet, extended release [facility] olmesartan 20 mg tablet 2021-10 15:21: 13 Yes olmesartan 20 mg tablet [facility] linagliptin -metformin (JENTADUETO XR) 2.5-1,000 mg [facility] 2021-10 15:21: 13 Yes Jentadueto XR 2.5 mg-1,000 mg tablet, extended release [facility] olmesartan 20 mg tablet 2021-10 15:21: 13 Yes olmesartan 20 mg tablet [facility] linagliptin -metformin (JENTADUETO XR) 2.5-1,000 mg [facility] 2021-10 15:21: 13 Yes Jentadueto XR 2.5 mg-1,000 mg tablet, extended release [facility] olmesartan 20 mg tablet 2021-10 15:21: 13 Yes olmesartan 20 mg tablet [facility] atorvastati n 20 mg tablet 2021-10 0 15:21: 12 Yes atorvastat in 20 mg tablet [facility] dapaglifloz in (FARXIGA) 10 mg tablet 2021-1015 15:21: 12 Yes Farxiga 10 mg tablet Take 1 tablet every day by oral route for 90 days. [facility] atorvastati n 20 mg tablet 2021-10 015 15:21: 12 Yes atorvastat in 20 mg tablet [facility] dapaglifloz in (FARXIGA) 10 mg tablet 2021-10 015 15:21: 12 Yes Farxiga 10 mg tablet Take 1 tablet every day by oral route for 90 days. [facility] atorvastati n 20 mg tablet 2021-10 015 15:21: 12 Yes atorvastat in 20 mg tablet [facility] dapaglifloz in (FARXIGA) 10 mg tablet 2021-10 15:21: 12 Yes Farxiga 10 mg tablet Take 1 tablet every day by oral route for 90 days. [facility] ketorolac 10 mg tablet 2021-10 00:00: 00 Yes [id number] 10mg Take 1 tablet by mouth every 6 (six) hours as needed for Pain (scale 4-6), Pain (scale 1-3) or Pain (scale 7-10). [facility] ketorolac 10 mg tablet 2021-10 00:00: 00 Yes [id number] 10mg Take 1 tablet by mouth every 6 (six) hours as needed for Pain (scale 4-6), Pain (scale 1-3) or Pain (scale 7-10). [facility] ketorolac 10 mg tablet 2021-1015 00:00: 00 Yes [id number] 10mg Take 1 tablet by mouth every 6 (six) hours as needed for Pain (scale 4-6), Pain (scale 1-3) or Pain (scale 7-10). [facility] methocarbam oL 500 mg tablet 2021-10 00:00: 00 08-16 04:59 :00 No [id number] 1000mg Take 2 tablets by mouth 4 (four) times daily for 4 days. [facility] predniSONE 20 mg tablet 2021-10 00:00: 00 08-16 04:59 :00 No [id number] 20mg Take 1 tablet by mouth 2 (two) times daily for 4 days. [facility] gabapentin 100 mg capsule 2021-10 015 00:00: 00 08-16 04:59 :00 No [id number] 100mg Take 1 capsule by mouth 3 (three) times daily for 4 days. [facility] Bactrim DS 800-160 MG Bactrim DS 800-160 MG 2020-10 00:00: 00 09-19 00:00 :00 No 1{table t} BID Bactrim DS 800-160 MG Bactrim DS 800-160 MG Bactrim DS 800-160 MG 2020-10 00:00: 00 09-19 00:00 :00 No 1{table t} BID Bactrim DS 800-160 MG ReliOn Blood Glucose Test - ReliOn Blood Glucose Test - 0 07-13 00:00: 00 No ReliOn Blood Glucose Test - ReliOn Blood Glucose Test - ReliOn Blood Glucose Test - 0 07-13 00:00: 00 No ReliOn Blood Glucose Test - ReliOn Blood Glucose Test - ReliOn Blood Glucose Test - 0 07-13 00:00: 00 No ReliOn Blood Glucose Test - ReliOn Blood Glucose Test - ReliOn Blood Glucose Test - 0 07-13 00:00: 00 No ReliOn Blood Glucose Test - ReliOn Blood Glucose Test - ReliOn Blood Glucose Test - 0 07-13 00:00: 00 No ReliOn Blood Glucose Test - ReliOn Blood Glucose Test - ReliOn Blood Glucose Test - 0 07-13 00:00: 00 No ReliOn Blood Glucose Test - ReliOn Blood Glucose Test - ReliOn Blood Glucose Test - 0 07-13 00:00: 00 No ReliOn Blood Glucose Test - glipiZIDE XL 5 MG glipiZIDE XL 5 MG 06-28 00:00: 00 No 1{table t_with_ food} QD glipiZIDE XL 5 MG glipiZIDE XL 5 MG glipiZIDE XL 5 MG 06-28 00:00: 00 No 1{table t_with_ food} QD glipiZIDE XL 5 MG Tamsulosin HCl 0.4 MG Tamsulosin HCl 0.4 MG 2020-0 06-22 00:00: 00 12-18 00:00 :00 No 1{capsu le} QD Tamsulosin HCl 0.4 MG Tamsulosin HCl 0.4 MG Tamsulosin HCl 0.4 MG 2020-0 06-22 00:00: 00 12-18 00:00 :00 No 1{capsu le} QD Tamsulosin HCl 0.4 MG Tamsulosin HCl 0.4 MG Tamsulosin HCl 0.4 MG 2020-0 06-22 00:00: 00 12-18 00:00 :00 No 1{capsu le} QD Tamsulosin HCl 0.4 MG Tamsulosin HCl 0.4 MG Tamsulosin HCl 0.4 MG 2020-0 06-22 00:00: 00 12-18 00:00 :00 No 1{capsu le} QD Tamsulosin HCl 0.4 MG Tamsulosin HCl 0.4 MG Tamsulosin HCl 0.4 MG 2020-0 06-22 00:00: 00 12-18 00:00 :00 No 1{capsu le} QD Tamsulosin HCl 0.4 MG Tamsulosin HCl 0.4 MG Tamsulosin HCl 0.4 MG 2020-0 06-22 00:00: 00 12-18 00:00 :00 No 1{capsu le} QD Tamsulosin HCl 0.4 MG Tamsulosin HCl 0.4 MG Tamsulosin HCl 0.4 MG 2020-0 06-22 00:00: 00 12-18 00:00 :00 No 1{capsu le} QD Tamsulosin HCl 0.4 MG Tamsulosin HCl 0.4 MG Tamsulosin HCl 0.4 MG 2020-0 06-22 00:00: 00 12-18 00:00 :00 No 1{capsu le} QD Tamsulosin HCl 0.4 MG Tamsulosin HCl 0.4 MG Tamsulosin HCl 0.4 MG 2020-0 06-22 00:00: 00 12-18 00:00 :00 No 1{capsu le} QD Tamsulosin HCl 0.4 MG Betamethaso ne Dipropionat e 0.05 % Betamethaso ne Dipropionat e 0.05 % 06-22 00:00: 00 08-03 00:00 :00 No 1{appli cation} BID Betamethas one Dipropiona te 0.05 % Betamethaso ne Dipropionat e 0.05 % Betamethaso ne Dipropionat e 0.05 % 06-22 00:00: 00 08-03 00:00 :00 No 1{appli cation} BID Betamethas one Dipropiona te 0.05 % Betamethaso ne Dipropionat e 0.05 % Betamethaso ne Dipropionat e 0.05 % 06-22 00:00: 00 08-03 00:00 :00 No 1{appli cation} BID Betamethas one Dipropiona te 0.05 % Betamethaso ne Dipropionat e 0.05 % Betamethaso ne Dipropionat e 0.05 % 06-22 00:00: 00 08-03 00:00 :00 No 1{appli cation} BID Betamethas one Dipropiona te 0.05 % Betamethaso ne Dipropionat e 0.05 % Betamethaso ne Dipropionat e 0.05 % 06-22 00:00: 00 08-03 00:00 :00 No 1{appli cation} BID Betamethas one Dipropiona te 0.05 % Cephalexin 500 MG Cephalexin 500 MG 06-22 00:00: 00 06-25 00:00 :00 No 1{capsu le} QID Cephalexin 500 MG Cephalexin 500 MG Cephalexin 500 MG 06-22 00:00: 00 06-25 00:00 :00 No 1{capsu le} QID Cephalexin 500 MG Flomax 0.4 MG Flomax 0.4 MG 2-10 00:00: 00 07-05 00:00 :00 No 1{capsu le} QD Flomax 0.4 MG Flomax 0.4 MG Flomax 0.4 MG 2020-0 2-10 00:00: 00 07-05 00:00 :00 No 1{capsu le} QD Flomax 0.4 MG Flomax 0.4 MG Flomax 0.4 MG 2020-0 2-10 00:00: 00 07-05 00:00 :00 No 1{capsu le} QD Flomax 0.4 MG Flomax 0.4 MG Flomax 0.4 MG 2020- 2- 00:00: 00 07-05 00:00 :00 No 1{capsu le} QD Flomax 0.4 MG Flomax 0.4 MG Flomax 0.4 MG 2020- 2 00:00: 00 07-05 00:00 :00 No 1{capsu le} QD Flomax 0.4 MG Albuterol Sulfate Albuterol Sulfate 06-20 00:00: 00 Yes Gus Moore 3 ml as needed [facility] ProAir HFA ProAir HFA 06-20 00:00: 00 Yes Gus Moore 2 puffs as needed [facility] Jentadueto XR Jentadueto XR 12-25 00:00: 00 Yes Gus Moore 2 tablets with a meal [facility] ciprofloxac in HCl 500 mg tablet 03-27 00:00: 00 Yes 500mg Take 1 tablet by mouth 2 (two) times daily. [facility] metroNIDAZO LE 500 mg tablet 03-27 00:00: 00 Yes 500mg Take 1 tablet by mouth 2 (two) times daily. [facility] ondansetron 4 mg disintegrat ing tablet 03-27 00:00: 00 Yes 4mg Take 1 tablet by mouth every 4 (four) hours as needed for Nausea and Vomiting (N/V). [facility] famotidine 20 mg tablet 03-27 00:00: 00 Yes 20mg Take 1 tablet by mouth 2 (two) times daily. [facility] ciprofloxac in HCl 500 mg tablet 03-27 00:00: 00 Yes 500mg Take 1 tablet by mouth 2 (two) times daily. [facility] metroNIDAZO LE 500 mg tablet 03-27 00:00: 00 Yes 500mg Take 1 tablet by mouth 2 (two) times daily. [facility] ondansetron 4 mg disintegrat ing tablet 03-27 00:00: 00 Yes 4mg Take 1 tablet by mouth every 4 (four) hours as needed for Nausea and Vomiting (N/V). [facility] famotidine 20 mg tablet 03-27 00:00: 00 Yes 20mg Take 1 tablet by mouth 2 (two) times daily. [facility] ciprofloxac in HCl 500 mg tablet 03-27 00:00: 00 08-11 00:00 :00 No 500mg Take 1 tablet by mouth 2 (two) times daily. [facility] metroNIDAZO LE 500 mg tablet 03-27 00:00: 00 08-11 00:00 :00 No 500mg Take 1 tablet by mouth 2 (two) times daily. [facility] ondansetron 4 mg disintegrat ing tablet 03-27 00:00: 00 08-11 00:00 :00 No 4mg Take 1 tablet by mouth every 4 (four) hours as needed for Nausea and Vomiting (N/V). [facility] famotidine 20 mg tablet 03-27 00:00: 00 08-11 00:00 :00 No 20mg Take 1 tablet by mouth 2 (two) times daily. [facility] cyclobenzap rine 10 mg tablet 04-12 00:00: 00 Yes 10mg Take 1 tablet by mouth 3 (three) times daily. [facility] traMADOL 50 mg tablet 04-12 00:00: 00 Yes 50mg Take 1 tablet by mouth every 4 (four) hours as needed for Pain (scale 7-10). [facility] cyclobenzap rine 10 mg tablet 04-12 00:00: 00 Yes 10mg Take 1 tablet by mouth 3 (three) times daily. [facility] traMADOL 50 mg tablet 04-12 00:00: 00 Yes 50mg Take 1 tablet by mouth every 4 (four) hours as needed for Pain (scale 7-10). [facility] cyclobenzap rine 10 mg tablet 04-12 00:00: 00 08-11 00:00 :00 No 10mg Take 1 tablet by mouth 3 (three) times daily. [facility] traMADOL 50 mg tablet 04-12 00:00: 00 08-11 00:00 :00 No 50mg Take 1 tablet by mouth every 4 (four) hours as needed for Pain (scale 7-10). [facility] diclofenac 75 mg EC tablet 04-04 00:00: 00 Yes TAKE 1 TABLET BY MOUTH TWICE A DAY [facility] pioglitazon e 30 mg tablet 04-04 00:00: 00 Yes TAKE 1 TABLET(S) BY MOUTH DAILY FOR GLU OVER 100 [facility] diclofenac 75 mg EC tablet 04-04 00:00: 00 Yes TAKE 1 TABLET BY MOUTH TWICE A DAY [facility] pioglitazon e 30 mg tablet 04-04 00:00: 00 Yes TAKE 1 TABLET(S) BY MOUTH DAILY FOR GLU OVER 100 [facility] methylPREDN ISolone 4 mg tablets 04-04 00:00: 00 Yes TAKE DIRECTED [facility] pioglitazon e 30 mg tablet 04-04 00:00: 00 Yes TAKE 1 TABLET(S) BY MOUTH DAILY FOR GLU OVER 100 [facility] cyclobenzap rine 10 mg tablet 04-04 00:00: 00 Yes TAKE 1 TABLET(S) BY MOUTH AT BEDTIME NEEDED MUSCLE SPASM. [facility] diclofenac 75 mg EC tablet 04-04 00:00: 00 Yes TAKE 1 TABLET BY MOUTH TWICE A DAY [facility] methylPREDN ISolone 4 mg tablets 04-04 00:00: 00 Yes TAKE DIRECTED [facility] pioglitazon e 30 mg tablet 04-04 00:00: 00 Yes TAKE 1 TABLET(S) BY MOUTH DAILY FOR GLU OVER 100 [facility] diclofenac 75 mg EC tablet 04-04 00:00: 00 Yes TAKE 1 TABLET BY MOUTH TWICE A DAY [facility] pioglitazon e 30 mg tablet 04-04 00:00: 00 Yes TAKE 1 TABLET(S) BY MOUTH DAILY FOR GLU OVER 100 [facility] cyclobenzap rine 10 mg tablet 04-04 00:00: 00 Yes TAKE 1 TABLET(S) BY MOUTH AT BEDTIME NEEDED MUSCLE SPASM. [facility] diclofenac 75 mg EC tablet 04-04 00:00: 00 Yes TAKE 1 TABLET BY MOUTH TWICE A DAY [facility] cyclobenzap rine 10 mg tablet 04-04 00:00: 00 08-11 00:00 :00 No TAKE 1 TABLET(S) BY MOUTH AT BEDTIME NEEDED MUSCLE SPASM. [facility] methylPREDN ISolone 4 mg tablets 04-04 00:00: 00 08-11 00:00 :00 No TAKE DIRECTED [facility] KOMBIGLYZE XR 5-1,000 mg per tablet 04-02 00:00: 00 Yes TAKE 1 TABLET(S) BY MOUTH DAILY WITH THE EVENING MEAL. [facility] KOMBIGLYZE XR 5-1,000 mg per tablet 04-02 00:00: 00 Yes TAKE 1 TABLET(S) BY MOUTH DAILY WITH THE EVENING MEAL. [facility] KOMBIGLYZE XR 5-1,000 mg per tablet 04-02 00:00: 00 08-11 00:00 :00 No TAKE 1 TABLET(S) BY MOUTH DAILY WITH THE EVENING MEAL. [facility] lisinopril 20 mg tablet 02-13 00:00: 00 Yes TAKE 1 TABLET BY MOUTH ONCE A DAY [facility] lisinopril 20 mg tablet 02-13 00:00: 00 Yes TAKE 1 TABLET BY MOUTH ONCE A DAY [facility] lisinopril 20 mg tablet 19 00:00: 00 08-11 00:00 :00 No TAKE 1 TABLET BY MOUTH ONCE A DAY [facility] amLODIPine 5 mg tablet 01-14 00:00: 00 Yes 5mg Take 5 mg by mouth daily. [facility] lisinopril 10 mg tablet 01-14 00:00: 00 Yes 10mg Take 10 mg by mouth daily. [facility] amLODIPine 5 mg tablet 01-14 00:00: 00 Yes 5mg Take 5 mg by mouth daily. [facility] amLODIPine 5 mg tablet 01-14 00:00: 00 Yes 5mg Take 5 mg by mouth daily. [facility] lisinopril 10 mg tablet 01-14 00:00: 00 Yes 10mg Take 10 mg by mouth daily. [facility] amLODIPine 5 mg tablet 01-14 00:00: 00 Yes 5mg Take 5 mg by mouth daily. [facility] amLODIPine 5 mg tablet 01-14 00:00: 00 Yes 5mg Take 5 mg by mouth daily. [facility] lisinopril 10 mg tablet 01-14 00:00: 00 08-11 00:00 :00 No 10mg Take 10 mg by mouth daily. [facility] Amlodipine Besylate Amlodipine Besylate Yes Gus Moore TAKE 1 TABLET BY MOUTH EVERY DAY [facility] Atorvastati n Calcium Atorvastati n Calcium Yes Gus Moore TAKE 1 TABLET BY MOUTH EVERY DAY IN THE EVENING WITH DINNER [facility] Olmesartan Medoxomil Olmesartan Medoxomil Yes Gus Moore 1 tablet [facility] Olmesartan Medoxomil 20 MG Olmesartan Medoxomil 20 MG No 1{table t} QD Olmesartan Medoxomil 20 MG ProAir HFA 108 (90 Base) MCG/ACT ProAir HFA 108 (90 Base) MCG/ACT No 2{puffs _as_nee ded} ProAir HFA 108 (90 Base) MCG/ACT Jentadueto XR 2.5-1000 MG Jentadueto XR 2.5-1000 MG No 2{table ts_with _a_meal } QD Jentadueto XR 2.5-1000 MG Albuterol Sulfate (2.5 MG/3ML) 0.083% Albuterol Sulfate (2.5 MG/3ML) 0.083% No 3{ml_as _needed } QID Albuterol Sulfate (2.5 MG/3ML) 0.083% Atorvastati n Calcium 20 MG Atorvastati n Calcium 20 MG No QD Atorvastat in Calcium 20 MG Atorvastati n Calcium 20 MG Atorvastati n Calcium 20 MG No QD Atorvastat in Calcium 20 MG amLODIPine Besylate 10 MG amLODIPine Besylate 10 MG No QD amLODIPine Besylate 10 MG amLODIPine Besylate 10 MG amLODIPine Besylate 10 MG No QD amLODIPine Besylate 10 MG Olmesartan Medoxomil 20 MG Olmesartan Medoxomil 20 MG No 1{table t} QD Olmesartan Medoxomil 20 MG Albuterol Sulfate (2.5 MG/3ML) 0.083% Albuterol Sulfate (2.5 MG/3ML) 0.083% No 3{ml_as _needed } QID Albuterol Sulfate (2.5 MG/3ML) 0.083% Jentadueto XR 2.5-1000 MG Jentadueto XR 2.5-1000 MG No 2{table ts_with _a_meal } QD Jentadueto XR 2.5-1000 MG Atorvastati n Calcium 20 MG Atorvastati n Calcium 20 MG No QD Atorvastat in Calcium 20 MG amLODIPine Besylate 10 MG amLODIPine Besylate 10 MG No QD amLODIPine Besylate 10 MG ProAir HFA 108 (90 Base) MCG/ACT ProAir HFA 108 (90 Base) MCG/ACT No 2{puffs _as_nee ded} ProAir HFA 108 (90 Base) MCG/ACT amLODIPine Besylate 10 MG amLODIPine Besylate 10 MG No QD amLODIPine Besylate 10 MG Atorvastati n Calcium 20 MG Atorvastati n Calcium 20 MG No QD Atorvastat in Calcium 20 MG Olmesartan Medoxomil 20 MG Olmesartan Medoxomil 20 MG No 1{table t} QD Olmesartan Medoxomil 20 MG amLODIPine Besylate 10 MG amLODIPine Besylate 10 MG No QD amLODIPine Besylate 10 MG Albuterol Sulfate (2.5 MG/3ML) 0.083% Albuterol Sulfate (2.5 MG/3ML) 0.083% No 3{ml_as _needed } QID Albuterol Sulfate (2.5 MG/3ML) 0.083% amLODIPine Besylate 10 MG amLODIPine Besylate 10 MG No QD amLODIPine Besylate 10 MG Jentadueto XR 2.5-1000 MG Jentadueto XR 2.5-1000 MG No 2{table ts_with _a_meal } QD Jentadueto XR 2.5-1000 MG Olmesartan Medoxomil 20 MG Olmesartan Medoxomil 20 MG No 1{table t} QD Olmesartan Medoxomil 20 MG ProAir HFA 108 (90 Base) MCG/ACT ProAir HFA 108 (90 Base) MCG/ACT No 2{puffs _as_nee ded} ProAir HFA 108 (90 Base) MCG/ACT Atorvastati n Calcium 20 MG Atorvastati n Calcium 20 MG No QD Atorvastat in Calcium 20 MG Atorvastati n Calcium 20 MG Atorvastati n Calcium 20 MG No QD Atorvastat in Calcium 20 MG glipiZIDE XL 5 MG glipiZIDE XL 5 MG No 1{table t_with_ food} QD glipiZIDE XL 5 MG Atorvastati n Calcium 20 MG Atorvastati n Calcium 20 MG No QD Atorvastat in Calcium 20 MG Atorvastati n Calcium 20 MG Atorvastati n Calcium 20 MG No QD Atorvastat in Calcium 20 MG ProAir HFA 108 (90 Base) MCG/ACT ProAir HFA 108 (90 Base) MCG/ACT No 2{puffs _as_nee ded} ProAir HFA 108 (90 Base) MCG/ACT amLODIPine Besylate 10 MG amLODIPine Besylate 10 MG No QD amLODIPine Besylate 10 MG Jentadueto XR 2.5-1000 MG Jentadueto XR 2.5-1000 MG No 2{table ts_with _a_meal } QD Jentadueto XR 2.5-1000 MG Olmesartan Medoxomil 20 MG Olmesartan Medoxomil 20 MG No 1{table t} QD Olmesartan Medoxomil 20 MG Albuterol Sulfate (2.5 MG/3ML) 0.083% Albuterol Sulfate (2.5 MG/3ML) 0.083% No 3{ml_as _needed } QID Albuterol Sulfate (2.5 MG/3ML) 0.083% amLODIPine Besylate 10 MG amLODIPine Besylate 10 MG No QD amLODIPine Besylate 10 MG amLODIPine Besylate 10 MG amLODIPine Besylate 10 MG No QD amLODIPine Besylate 10 MG Atorvastati n Calcium 20 MG Atorvastati n Calcium 20 MG No QD Atorvastat in Calcium 20 MG Olmesartan Medoxomil 20 MG Olmesartan Medoxomil 20 MG No 1{table t} QD Olmesartan Medoxomil 20 MG amLODIPine Besylate 10 MG amLODIPine Besylate 10 MG No QD amLODIPine Besylate 10 MG glipiZIDE XL 5 MG glipiZIDE XL 5 MG No 1{table t_with_ food} QD glipiZIDE XL 5 MG ProAir HFA 108 (90 Base) MCG/ACT ProAir HFA 108 (90 Base) MCG/ACT No 2{puffs _as_nee ded} ProAir HFA 108 (90 Base) MCG/ACT Atorvastati n Calcium 20 MG Atorvastati n Calcium 20 MG No QD Atorvastat in Calcium 20 MG Jentadueto XR 2.5-1000 MG Jentadueto XR 2.5-1000 MG No 2{table ts_with _a_meal } QD Jentadueto XR 2.5-1000 MG Albuterol Sulfate (2.5 MG/3ML) 0.083% Albuterol Sulfate (2.5 MG/3ML) 0.083% No 3{ml_as _needed } QID Albuterol Sulfate (2.5 MG/3ML) 0.083% amLODIPine Besylate 10 MG amLODIPine Besylate 10 MG No QD amLODIPine Besylate 10 MG Atorvastati n Calcium 20 MG Atorvastati n Calcium 20 MG No QD Atorvastat in Calcium 20 MG Olmesartan Medoxomil 20 MG Olmesartan Medoxomil 20 MG No 1{table t} QD Olmesartan Medoxomil 20 MG amLODIPine Besylate 10 MG amLODIPine Besylate 10 MG No QD amLODIPine Besylate 10 MG glipiZIDE XL 5 MG glipiZIDE XL 5 MG No 1{table t_with_ food} QD glipiZIDE XL 5 MG ProAir HFA 108 (90 Base) MCG/ACT ProAir HFA 108 (90 Base) MCG/ACT No 2{puffs _as_nee ded} ProAir HFA 108 (90 Base) MCG/ACT Atorvastati n Calcium 20 MG Atorvastati n Calcium 20 MG No QD Atorvastat in Calcium 20 MG Jentadueto XR 2.5-1000 MG Jentadueto XR 2.5-1000 MG No 2{table ts_with _a_meal } QD Jentadueto XR 2.5-1000 MG Albuterol Sulfate (2.5 MG/3ML) 0.083% Albuterol Sulfate (2.5 MG/3ML) 0.083% No 3{ml_as _needed } QID Albuterol Sulfate (2.5 MG/3ML) 0.083% glipiZIDE XL 5 MG glipiZIDE XL 5 MG No 1{table t_with_ food} QD glipiZIDE XL 5 MG ProAir HFA 108 (90 Base) MCG/ACT ProAir HFA 108 (90 Base) MCG/ACT No 2{puffs _as_nee ded} ProAir HFA 108 (90 Base) MCG/ACT Jentadueto XR 2.5-1000 MG Jentadueto XR 2.5-1000 MG No 2{table ts_with _a_meal } QD Jentadueto XR 2.5-1000 MG amLODIPine Besylate 10 MG amLODIPine Besylate 10 MG No QD amLODIPine Besylate 10 MG Atorvastati n Calcium 20 MG Atorvastati n Calcium 20 MG No QD Atorvastat in Calcium 20 MG Atorvastati n Calcium 20 MG Atorvastati n Calcium 20 MG No QD Atorvastat in Calcium 20 MG Albuterol Sulfate (2.5 MG/3ML) 0.083% Albuterol Sulfate (2.5 MG/3ML) 0.083% No 3{ml_as _needed } QID Albuterol Sulfate (2.5 MG/3ML) 0.083% Olmesartan Medoxomil 20 MG Olmesartan Medoxomil 20 MG No 1{table t} QD Olmesartan Medoxomil 20 MG amLODIPine Besylate 10 MG amLODIPine Besylate 10 MG No QD amLODIPine Besylate 10 MG Atorvastati n Calcium 20 MG Atorvastati n Calcium 20 MG No QD Atorvastat in Calcium 20 MG ProAir HFA 108 (90 Base) MCG/ACT ProAir HFA 108 (90 Base) MCG/ACT No 2{puffs _as_nee ded} ProAir HFA 108 (90 Base) MCG/ACT amLODIPine Besylate 10 MG amLODIPine Besylate 10 MG No QD amLODIPine Besylate 10 MG Atorvastati n Calcium 20 MG Atorvastati n Calcium 20 MG No QD Atorvastat in Calcium 20 MG amLODIPine Besylate 10 MG amLODIPine Besylate 10 MG No QD amLODIPine Besylate 10 MG Olmesartan Medoxomil 20 MG Olmesartan Medoxomil 20 MG No 1{table t} QD Olmesartan Medoxomil 20 MG Albuterol Sulfate (2.5 MG/3ML) 0.083% Albuterol Sulfate (2.5 MG/3ML) 0.083% No 3{ml_as _needed } QID Albuterol Sulfate (2.5 MG/3ML) 0.083% glipiZIDE XL 5 MG glipiZIDE XL 5 MG No 1{table t_with_ food} QD glipiZIDE XL 5 MG Jentadueto XR 2.5-1000 MG Jentadueto XR 2.5-1000 MG No 2{table ts_with _a_meal } QD Jentadueto XR 2.5-1000 MG Olmesartan Medoxomil 20 MG Olmesartan Medoxomil 20 MG No 1{table t} QD Olmesartan Medoxomil 20 MG ProAir HFA 108 (90 Base) MCG/ACT ProAir HFA 108 (90 Base) MCG/ACT No 2{puffs _as_nee ded} ProAir HFA 108 (90 Base) MCG/ACT Albuterol Sulfate (2.5 MG/3ML) 0.083% Albuterol Sulfate (2.5 MG/3ML) 0.083% No 3{ml_as _needed } QID Albuterol Sulfate (2.5 MG/3ML) 0.083% Jentadueto XR 2.5-1000 MG Jentadueto XR 2.5-1000 MG No 2{table ts_with _a_meal } QD Jentadueto XR 2.5-1000 MG amLODIPine Besylate 10 MG amLODIPine Besylate 10 MG No QD amLODIPine Besylate 10 MG amLODIPine Besylate 10 MG amLODIPine Besylate 10 MG No QD amLODIPine Besylate 10 MG Atorvastati n Calcium 20 MG Atorvastati n Calcium 20 MG No QD Atorvastat in Calcium 20 MG Atorvastati n Calcium 20 MG Atorvastati n Calcium 20 MG No QD Atorvastat in Calcium 20 MG glipiZIDE XL 5 MG glipiZIDE XL 5 MG No 1{table t_with_ food} QD glipiZIDE XL 5 MG Olmesartan Medoxomil 20 MG Olmesartan Medoxomil 20 MG No 1{table t} QD Olmesartan Medoxomil 20 MG ProAir HFA 108 (90 Base) MCG/ACT ProAir HFA 108 (90 Base) MCG/ACT No 2{puffs _as_nee ded} ProAir HFA 108 (90 Base) MCG/ACT glipiZIDE XL 5 MG glipiZIDE XL 5 MG No 1{table t_with_ food} QD glipiZIDE XL 5 MG amLODIPine Besylate 10 MG amLODIPine Besylate 10 MG No QD amLODIPine Besylate 10 MG Jentadueto XR 2.5-1000 MG Jentadueto XR 2.5-1000 MG No 2{table ts_with _a_meal } QD Jentadueto XR 2.5-1000 MG Atorvastati n Calcium 20 MG Atorvastati n Calcium 20 MG No QD Atorvastat in Calcium 20 MG Albuterol Sulfate (2.5 MG/3ML) 0.083% Albuterol Sulfate (2.5 MG/3ML) 0.083% No 3{ml_as _needed } QID Albuterol Sulfate (2.5 MG/3ML) 0.083% Olmesartan Medoxomil 20 MG Olmesartan Medoxomil 20 MG No 1{table t} QD Olmesartan Medoxomil 20 MG ProAir HFA 108 (90 Base) MCG/ACT ProAir HFA 108 (90 Base) MCG/ACT No 2{puffs _as_nee ded} ProAir HFA 108 (90 Base) MCG/ACT glipiZIDE XL 5 MG glipiZIDE XL 5 MG No 1{table t_with_ food} QD glipiZIDE XL 5 MG amLODIPine Besylate 10 MG amLODIPine Besylate 10 MG No QD amLODIPine Besylate 10 MG Jentadueto XR 2.5-1000 MG Jentadueto XR 2.5-1000 MG No 2{table ts_with _a_meal } QD Jentadueto XR 2.5-1000 MG Atorvastati n Calcium 20 MG Atorvastati n Calcium 20 MG No QD Atorvastat in Calcium 20 MG Albuterol Sulfate (2.5 MG/3ML) 0.083% Albuterol Sulfate (2.5 MG/3ML) 0.083% No 3{ml_as _needed } QID Albuterol Sulfate (2.5 MG/3ML) 0.083% Olmesartan Medoxomil 20 MG Olmesartan Medoxomil 20 MG No 1{table t} QD Olmesartan Medoxomil 20 MG ProAir HFA 108 (90 Base) MCG/ACT ProAir HFA 108 (90 Base) MCG/ACT No 2{puffs _as_nee ded} ProAir HFA 108 (90 Base) MCG/ACT glipiZIDE XL 5 MG glipiZIDE XL 5 MG No 1{table t_with_ food} QD glipiZIDE XL 5 MG amLODIPine Besylate 10 MG amLODIPine Besylate 10 MG No QD amLODIPine Besylate 10 MG Jentadueto XR 2.5-1000 MG Jentadueto XR 2.5-1000 MG No 2{table ts_with _a_meal } QD Jentadueto XR 2.5-1000 MG Atorvastati n Calcium 20 MG Atorvastati n Calcium 20 MG No QD Atorvastat in Calcium 20 MG Albuterol Sulfate (2.5 MG/3ML) 0.083% Albuterol Sulfate (2.5 MG/3ML) 0.083% No 3{ml_as _needed } QID Albuterol Sulfate (2.5 MG/3ML) 0.083% amLODIPine Besylate 10 MG amLODIPine Besylate 10 MG No QD amLODIPine Besylate 10 MG glipiZIDE XL 5 MG glipiZIDE XL 5 MG No 1{table t_with_ food} QD glipiZIDE XL 5 MG Atorvastati n Calcium 20 MG Atorvastati n Calcium 20 MG No QD Atorvastat in Calcium 20 MG Olmesartan Medoxomil 20 MG Olmesartan Medoxomil 20 MG No 1{table t} QD Olmesartan Medoxomil 20 MG Jentadueto XR 2.5-1000 MG Jentadueto XR 2.5-1000 MG No 2{table ts_with _a_meal } QD Jentadueto XR 2.5-1000 MG ProAir HFA 108 (90 Base) MCG/ACT ProAir HFA 108 (90 Base) MCG/ACT No 2{puffs _as_nee ded} ProAir HFA 108 (90 Base) MCG/ACT Albuterol Sulfate (2.5 MG/3ML) 0.083% Albuterol Sulfate (2.5 MG/3ML) 0.083% No 3{ml_as _needed } QID Albuterol Sulfate (2.5 MG/3ML) 0.083% amLODIPine Besylate 10 MG amLODIPine Besylate 10 MG No QD amLODIPine Besylate 10 MG glipiZIDE XL 5 MG glipiZIDE XL 5 MG No 1{table t_with_ food} QD glipiZIDE XL 5 MG Atorvastati n Calcium 20 MG Atorvastati n Calcium 20 MG No QD Atorvastat in Calcium 20 MG Olmesartan Medoxomil 20 MG Olmesartan Medoxomil 20 MG No 1{table t} QD Olmesartan Medoxomil 20 MG Jentadueto XR 2.5-1000 MG Jentadueto XR 2.5-1000 MG No 2{table ts_with _a_meal } QD Jentadueto XR 2.5-1000 MG ProAir HFA 108 (90 Base) MCG/ACT ProAir HFA 108 (90 Base) MCG/ACT No 2{puffs _as_nee ded} ProAir HFA 108 (90 Base) MCG/ACT Albuterol Sulfate (2.5 MG/3ML) 0.083% Albuterol Sulfate (2.5 MG/3ML) 0.083% No 3{ml_as _needed } QID Albuterol Sulfate (2.5 MG/3ML) 0.083% Olmesartan Medoxomil 20 MG Olmesartan Medoxomil 20 MG No 1{table t} QD Olmesartan Medoxomil 20 MG FreeStyle Lite Test - FreeStyle Lite Test - No FreeStyle Lite Test - Atorvastati n Calcium 20 MG Atorvastati n Calcium 20 MG No QD Atorvastat in Calcium 20 MG Jentadueto XR 2.5-1000 MG Jentadueto XR 2.5-1000 MG No 2{table ts_with _a_meal } QD Jentadueto XR 2.5-1000 MG amLODIPine Besylate 10 MG amLODIPine Besylate 10 MG No QD amLODIPine Besylate 10 MG glipiZIDE XL 5 MG glipiZIDE XL 5 MG No 1{table t_with_ food} QD glipiZIDE XL 5 MG Olmesartan Medoxomil 20 MG Olmesartan Medoxomil 20 MG No 1{table t} QD Olmesartan Medoxomil 20 MG FreeStyle Lite Test - FreeStyle Lite Test - No FreeStyle Lite Test - Atorvastati n Calcium 20 MG Atorvastati n Calcium 20 MG No QD Atorvastat in Calcium 20 MG Jentadueto XR 2.5-1000 MG Jentadueto XR 2.5-1000 MG No 2{table ts_with _a_meal } QD Jentadueto XR 2.5-1000 MG amLODIPine Besylate 10 MG amLODIPine Besylate 10 MG No QD amLODIPine Besylate 10 MG glipiZIDE XL 5 MG glipiZIDE XL 5 MG No 1{table t_with_ food} QD glipiZIDE XL 5 MG glipiZIDE XL 5 MG glipiZIDE XL 5 MG No 1{table t_with_ food} QD glipiZIDE XL 5 MG FreeStyle Lite Test - FreeStyle Lite Test - No FreeStyle Lite Test - Atorvastati n Calcium 20 MG Atorvastati n Calcium 20 MG No QD Atorvastat in Calcium 20 MG amLODIPine Besylate 10 MG amLODIPine Besylate 10 MG No QD amLODIPine Besylate 10 MG Jentadueto XR 2.5-1000 MG Jentadueto XR 2.5-1000 MG No 2{table ts_with _a_meal } QD Jentadueto XR 2.5-1000 MG Olmesartan Medoxomil 20 MG Olmesartan Medoxomil 20 MG No 1{table t} QD Olmesartan Medoxomil 20 MG glipiZIDE XL 5 MG glipiZIDE XL 5 MG No 1{table t_with_ food} QD glipiZIDE XL 5 MG FreeStyle Lite Test - FreeStyle Lite Test - No FreeStyle Lite Test - Atorvastati n Calcium 20 MG Atorvastati n Calcium 20 MG No QD Atorvastat in Calcium 20 MG amLODIPine Besylate 10 MG amLODIPine Besylate 10 MG No QD amLODIPine Besylate 10 MG Jentadueto XR 2.5-1000 MG Jentadueto XR 2.5-1000 MG No 2{table ts_with _a_meal } QD Jentadueto XR 2.5-1000 MG Olmesartan Medoxomil 20 MG Olmesartan Medoxomil 20 MG No 1{table t} QD Olmesartan Medoxomil 20 MG glipiZIDE XL 5 MG glipiZIDE XL 5 MG No 1{table t_with_ food} QD glipiZIDE XL 5 MG FreeStyle Lite Test - FreeStyle Lite Test - No FreeStyle Lite Test - Atorvastati n Calcium 20 MG Atorvastati n Calcium 20 MG No QD Atorvastat in Calcium 20 MG amLODIPine Besylate 10 MG amLODIPine Besylate 10 MG No QD amLODIPine Besylate 10 MG Jentadueto XR 2.5-1000 MG Jentadueto XR 2.5-1000 MG No 2{table ts_with _a_meal } QD Jentadueto XR 2.5-1000 MG Olmesartan Medoxomil 20 MG Olmesartan Medoxomil 20 MG No 1{table t} QD Olmesartan Medoxomil 20 MG glipiZIDE XL 5 MG glipiZIDE XL 5 MG No 1{table t_with_ food} QD glipiZIDE XL 5 MG FreeStyle Lite Test - FreeStyle Lite Test - No FreeStyle Lite Test - Atorvastati n Calcium 20 MG Atorvastati n Calcium 20 MG No QD Atorvastat in Calcium 20 MG amLODIPine Besylate 10 MG amLODIPine Besylate 10 MG No QD amLODIPine Besylate 10 MG Jentadueto XR 2.5-1000 MG Jentadueto XR 2.5-1000 MG No 2{table ts_with _a_meal } QD Jentadueto XR 2.5-1000 MG Olmesartan Medoxomil 20 MG Olmesartan Medoxomil 20 MG No 1{table t} QD Olmesartan Medoxomil 20 MG Atorvastati n Calcium 20 MG Atorvastati n Calcium 20 MG No QD Atorvastat in Calcium 20 MG FreeStyle Lite Test - FreeStyle Lite Test - No FreeStyle Lite Test - glipiZIDE XL 5 MG glipiZIDE XL 5 MG No 1{table t_with_ food} QD glipiZIDE XL 5 MG busPIRone HCl 15 MG busPIRone HCl 15 MG No 1{table t} BID busPIRone HCl 15 MG amLODIPine Besylate 10 MG amLODIPine Besylate 10 MG No QD amLODIPine Besylate 10 MG Jentadueto XR 2.5-1000 MG Jentadueto XR 2.5-1000 MG No 2{table ts_with _a_meal } QD Jentadueto XR 2.5-1000 MG Olmesartan Medoxomil 20 MG Olmesartan Medoxomil 20 MG No 1{table t} QD Olmesartan Medoxomil 20 MG Cetirizine HCl 10 MG Cetirizine HCl 10 MG No 1{table t} QD Cetirizine HCl 10 MG Paxlovid (300/100) 20 x 150 MG & 10 x 100MG Paxlovid (300/100) 20 x 150 MG & 10 x 100MG No 3{table ts} BID Paxlovid (300/100) 20 x 150 MG & 10 x 100MG Atorvastati n Calcium 20 MG Atorvastati n Calcium 20 MG No QD Atorvastat in Calcium 20 MG FreeStyle Lite Test - FreeStyle Lite Test - No FreeStyle Lite Test - glipiZIDE XL 5 MG glipiZIDE XL 5 MG No 1{table t_with_ food} QD glipiZIDE XL 5 MG busPIRone HCl 15 MG busPIRone HCl 15 MG No 1{table t} BID busPIRone HCl 15 MG amLODIPine Besylate 10 MG amLODIPine Besylate 10 MG No QD amLODIPine Besylate 10 MG Jentadueto XR 2.5-1000 MG Jentadueto XR 2.5-1000 MG No 2{table ts_with _a_meal } QD Jentadueto XR 2.5-1000 MG Olmesartan Medoxomil 20 MG Olmesartan Medoxomil 20 MG No 1{table t} QD Olmesartan Medoxomil 20 MG Cetirizine HCl 10 MG Cetirizine HCl 10 MG No 1{table t} QD Cetirizine HCl 10 MG Paxlovid (300/100) 20 x 150 MG & 10 x 100MG Paxlovid (300/100) 20 x 150 MG & 10 x 100MG No 3{table ts} BID Paxlovid (300/100) 20 x 150 MG & 10 x 100MG Atorvastati n Calcium 20 MG Atorvastati n Calcium 20 MG No QD Atorvastat in Calcium 20 MG FreeStyle Lite Test - FreeStyle Lite Test - No FreeStyle Lite Test - glipiZIDE XL 5 MG glipiZIDE XL 5 MG No 1{table t_with_ food} QD glipiZIDE XL 5 MG busPIRone HCl 15 MG busPIRone HCl 15 MG No 1{table t} BID busPIRone HCl 15 MG amLODIPine Besylate 10 MG amLODIPine Besylate 10 MG No QD amLODIPine Besylate 10 MG Jentadueto XR 2.5-1000 MG Jentadueto XR 2.5-1000 MG No 2{table ts_with _a_meal } QD Jentadueto XR 2.5-1000 MG Olmesartan Medoxomil 20 MG Olmesartan Medoxomil 20 MG No 1{table t} QD Olmesartan Medoxomil 20 MG Cetirizine HCl 10 MG Cetirizine HCl 10 MG No 1{table t} QD Cetirizine HCl 10 MG Paxlovid (300/100) 20 x 150 MG & 10 x 100MG Paxlovid (300/100) 20 x 150 MG & 10 x 100MG No 3{table ts} BID Paxlovid (300/100) 20 x 150 MG & 10 x 100MG Atorvastati n Calcium 20 MG Atorvastati n Calcium 20 MG No QD Atorvastat in Calcium 20 MG FreeStyle Lite Test - FreeStyle Lite Test - No FreeStyle Lite Test - glipiZIDE XL 5 MG glipiZIDE XL 5 MG No 1{table t_with_ food} QD glipiZIDE XL 5 MG busPIRone HCl 15 MG busPIRone HCl 15 MG No 1{table t} BID busPIRone HCl 15 MG amLODIPine Besylate 10 MG amLODIPine Besylate 10 MG No QD amLODIPine Besylate 10 MG Jentadueto XR 2.5-1000 MG Jentadueto XR 2.5-1000 MG No 2{table ts_with _a_meal } QD Jentadueto XR 2.5-1000 MG Olmesartan Medoxomil 20 MG Olmesartan Medoxomil 20 MG No 1{table t} QD Olmesartan Medoxomil 20 MG Cetirizine HCl 10 MG Cetirizine HCl 10 MG No 1{table t} QD Cetirizine HCl 10 MG Paxlovid (300/100) 20 x 150 MG & 10 x 100MG Paxlovid (300/100) 20 x 150 MG & 10 x 100MG No 3{table ts} BID Paxlovid (300/100) 20 x 150 MG & 10 x 100MG Atorvastati n Calcium 20 MG Atorvastati n Calcium 20 MG No QD Atorvastat in Calcium 20 MG FreeStyle Lite Test - FreeStyle Lite Test - No FreeStyle Lite Test - glipiZIDE XL 5 MG glipiZIDE XL 5 MG No 1{table t_with_ food} QD glipiZIDE XL 5 MG busPIRone HCl 15 MG busPIRone HCl 15 MG No 1{table t} BID busPIRone HCl 15 MG amLODIPine Besylate 10 MG amLODIPine Besylate 10 MG No QD amLODIPine Besylate 10 MG Jentadueto XR 2.5-1000 MG Jentadueto XR 2.5-1000 MG No 2{table ts_with _a_meal } QD Jentadueto XR 2.5-1000 MG Olmesartan Medoxomil 20 MG Olmesartan Medoxomil 20 MG No 1{table t} QD Olmesartan Medoxomil 20 MG Cetirizine HCl 10 MG Cetirizine HCl 10 MG No 1{table t} QD Cetirizine HCl 10 MG Paxlovid (300/100) 20 x 150 MG & 10 x 100MG Paxlovid (300/100) 20 x 150 MG & 10 x 100MG No 3{table ts} BID Paxlovid (300/100) 20 x 150 MG & 10 x 100MG Atorvastati n Calcium 20 MG Atorvastati n Calcium 20 MG No QD Atorvastat in Calcium 20 MG FreeStyle Lite Test - FreeStyle Lite Test - No FreeStyle Lite Test - glipiZIDE XL 5 MG glipiZIDE XL 5 MG No 1{table t_with_ food} QD glipiZIDE XL 5 MG busPIRone HCl 15 MG busPIRone HCl 15 MG No 1{table t} BID busPIRone HCl 15 MG amLODIPine Besylate 10 MG amLODIPine Besylate 10 MG No QD amLODIPine Besylate 10 MG Jentadueto XR 2.5-1000 MG Jentadueto XR 2.5-1000 MG No 2{table ts_with _a_meal } QD Jentadueto XR 2.5-1000 MG Olmesartan Medoxomil 20 MG Olmesartan Medoxomil 20 MG No 1{table t} QD Olmesartan Medoxomil 20 MG Cetirizine HCl 10 MG Cetirizine HCl 10 MG No 1{table t} QD Cetirizine HCl 10 MG Paxlovid (300/100) 20 x 150 MG & 10 x 100MG Paxlovid (300/100) 20 x 150 MG & 10 x 100MG No 3{table ts} BID Paxlovid (300/100) 20 x 150 MG & 10 x 100MG Atorvastati n Calcium 20 MG Atorvastati n Calcium 20 MG No QD Atorvastat in Calcium 20 MG FreeStyle Lite Test - FreeStyle Lite Test - No FreeStyle Lite Test - glipiZIDE XL 5 MG glipiZIDE XL 5 MG No 1{table t_with_ food} QD glipiZIDE XL 5 MG busPIRone HCl 15 MG busPIRone HCl 15 MG No 1{table t} BID busPIRone HCl 15 MG amLODIPine Besylate 10 MG amLODIPine Besylate 10 MG No QD amLODIPine Besylate 10 MG Jentadueto XR 2.5-1000 MG Jentadueto XR 2.5-1000 MG No 2{table ts_with _a_meal } QD Jentadueto XR 2.5-1000 MG Olmesartan Medoxomil 20 MG Olmesartan Medoxomil 20 MG No 1{table t} QD Olmesartan Medoxomil 20 MG Cetirizine HCl 10 MG Cetirizine HCl 10 MG No 1{table t} QD Cetirizine HCl 10 MG Paxlovid (300/100) 20 x 150 MG & 10 x 100MG Paxlovid (300/100) 20 x 150 MG & 10 x 100MG No 3{table ts} BID Paxlovid (300/100) 20 x 150 MG & 10 x 100MG Olmesartan Medoxomil 20 MG Olmesartan Medoxomil 20 MG No 1{table t} QD Olmesartan Medoxomil 20 MG Atorvastati n Calcium 20 MG Atorvastati n Calcium 20 MG No QD Atorvastat in Calcium 20 MG FreeStyle Lite Test - FreeStyle Lite Test - No FreeStyle Lite Test - glipiZIDE XL 5 MG glipiZIDE XL 5 MG No 1{table t_with_ food} QD glipiZIDE XL 5 MG busPIRone HCl 15 MG busPIRone HCl 15 MG No 1{table t} BID busPIRone HCl 15 MG amLODIPine Besylate 10 MG amLODIPine Besylate 10 MG No QD amLODIPine Besylate 10 MG Jentadueto XR 2.5-1000 MG Jentadueto XR 2.5-1000 MG No 2{table ts_with _a_meal } QD Jentadueto XR 2.5-1000 MG Olmesartan Medoxomil 20 MG Olmesartan Medoxomil 20 MG No 1{table t} QD Olmesartan Medoxomil 20 MG Olmesartan Medoxomil 20 MG Olmesartan Medoxomil 20 MG No 1{table t} QD Olmesartan Medoxomil 20 MG Cetirizine HCl 10 MG Cetirizine HCl 10 MG No 1{table t} QD Cetirizine HCl 10 MG Paxlovid (300/100) 20 x 150 MG & 10 x 100MG Paxlovid (300/100) 20 x 150 MG & 10 x 100MG No 3{table ts} BID Paxlovid (300/100) 20 x 150 MG & 10 x 100MG Atorvastati n Calcium 20 MG Atorvastati n Calcium 20 MG No QD Atorvastat in Calcium 20 MG Atorvastati n Calcium 20 MG Atorvastati n Calcium 20 MG No QD Atorvastat in Calcium 20 MG FreeStyle Lite Test - FreeStyle Lite Test - No FreeStyle Lite Test - glipiZIDE XL 5 MG glipiZIDE XL 5 MG No 1{table t_with_ food} QD glipiZIDE XL 5 MG busPIRone HCl 15 MG busPIRone HCl 15 MG No 1{table t} BID busPIRone HCl 15 MG amLODIPine Besylate 10 MG amLODIPine Besylate 10 MG No QD amLODIPine Besylate 10 MG Jentadueto XR 2.5-1000 MG Jentadueto XR 2.5-1000 MG No 2{table ts_with _a_meal } QD Jentadueto XR 2.5-1000 MG Olmesartan Medoxomil 20 MG Olmesartan Medoxomil 20 MG No 1{table t} QD Olmesartan Medoxomil 20 MG Cetirizine HCl 10 MG Cetirizine HCl 10 MG No 1{table t} QD Cetirizine HCl 10 MG Albuterol Sulfate (2.5 MG/3ML) 0.083% Albuterol Sulfate (2.5 MG/3ML) 0.083% No 3{ml_as _needed } QID Albuterol Sulfate (2.5 MG/3ML) 0.083% Paxlovid (300/100) 20 x 150 MG & 10 x 100MG Paxlovid (300/100) 20 x 150 MG & 10 x 100MG No 3{table ts} BID Paxlovid (300/100) 20 x 150 MG & 10 x 100MG busPIRone HCl 15 MG busPIRone HCl 15 MG No 1{table t} BID busPIRone HCl 15 MG amLODIPine Besylate 10 MG amLODIPine Besylate 10 MG No QD amLODIPine Besylate 10 MG glipiZIDE XL 5 MG glipiZIDE XL 5 MG No 1{table t_with_ food} QD glipiZIDE XL 5 MG ProAir HFA 108 (90 Base) MCG/ACT ProAir HFA 108 (90 Base) MCG/ACT No 2{puffs _as_nee ded} ProAir HFA 108 (90 Base) MCG/ACT FreeStyle Lite Test - FreeStyle Lite Test - No FreeStyle Lite Test - Olmesartan Medoxomil 20 MG Olmesartan Medoxomil 20 MG No 1{table t} QD Olmesartan Medoxomil 20 MG Atorvastati n Calcium 20 MG Atorvastati n Calcium 20 MG No QD Atorvastat in Calcium 20 MG Pseudoeph-B romphen-DM 30-2-10 MG/5ML Pseudoeph-B romphen-DM 30-2-10 MG/5ML No 5{ml_as _needed } QID Pseudoeph- Bromphen-D M 30-2-10 MG/5ML Cetirizine HCl 10 MG Cetirizine HCl 10 MG No 1{table t} QD Cetirizine HCl 10 MG Paxlovid (300/100) 20 x 150 MG & 10 x 100MG Paxlovid (300/100) 20 x 150 MG & 10 x 100MG No 3{table ts} BID Paxlovid (300/100) 20 x 150 MG & 10 x 100MG Jentadueto XR 2.5-1000 MG Jentadueto XR 2.5-1000 MG No 2{table ts_with _a_meal } QD Jentadueto XR 2.5-1000 MG Jentadueto XR 2.5-1000 MG Jentadueto XR 2.5-1000 MG No 2{table ts_with _a_meal } QD Jentadueto XR 2.5-1000 MG amLODIPine Besylate 10 MG amLODIPine Besylate 10 MG No QD amLODIPine Besylate 10 MG Atorvastati n Calcium 20 MG Atorvastati n Calcium 20 MG No QD Atorvastat in Calcium 20 MG FreeStyle Lite Test - FreeStyle Lite Test - No FreeStyle Lite Test - Olmesartan Medoxomil 20 MG Olmesartan Medoxomil 20 MG No 1{table t} QD Olmesartan Medoxomil 20 MG busPIRone HCl 15 MG busPIRone HCl 15 MG No 1{table t} BID busPIRone HCl 15 MG Cetirizine HCl 10 MG Cetirizine HCl 10 MG No 1{table t} QD Cetirizine HCl 10 MG amLODIPine Besylate 10 MG amLODIPine Besylate 10 MG No QD amLODIPine Besylate 10 MG glipiZIDE XL 5 MG glipiZIDE XL 5 MG No 1{table t_with_ food} QD glipiZIDE XL 5 MG amLODIPine Besylate 10 MG amLODIPine Besylate 10 MG No QD amLODIPine Besylate 10 MG Jentadueto XR 2.5-1000 MG Jentadueto XR 2.5-1000 MG No 2{table ts_with _a_meal } QD Jentadueto XR 2.5-1000 MG Atorvastati n Calcium 20 MG Atorvastati n Calcium 20 MG No QD Atorvastat in Calcium 20 MG Atorvastati n Calcium 20 MG Atorvastati n Calcium 20 MG No QD Atorvastat in Calcium 20 MG FreeStyle Lite Test - FreeStyle Lite Test - No FreeStyle Lite Test - Olmesartan Medoxomil 20 MG Olmesartan Medoxomil 20 MG No 1{table t} QD Olmesartan Medoxomil 20 MG busPIRone HCl 15 MG busPIRone HCl 15 MG No 1{table t} BID busPIRone HCl 15 MG Cetirizine HCl 10 MG Cetirizine HCl 10 MG No 1{table t} QD Cetirizine HCl 10 MG amLODIPine Besylate 10 MG amLODIPine Besylate 10 MG No QD amLODIPine Besylate 10 MG glipiZIDE XL 5 MG glipiZIDE XL 5 MG No 1{table t_with_ food} QD glipiZIDE XL 5 MG Jentadueto XR 2.5-1000 MG Jentadueto XR 2.5-1000 MG No 2{table ts_with _a_meal } QD Jentadueto XR 2.5-1000 MG amLODIPine Besylate 10 MG amLODIPine Besylate 10 MG No QD amLODIPine Besylate 10 MG Atorvastati n Calcium 20 MG Atorvastati n Calcium 20 MG No QD Atorvastat in Calcium 20 MG Albuterol Sulfate (2.5 MG/3ML) 0.083% Albuterol Sulfate (2.5 MG/3ML) 0.083% No 3{ml_as _needed } QID Albuterol Sulfate (2.5 MG/3ML) 0.083% Jentadueto XR 2.5-1000 MG Jentadueto XR 2.5-1000 MG No 2{table ts_with _a_meal } QD Jentadueto XR 2.5-1000 MG Olmesartan Medoxomil 20 MG Olmesartan Medoxomil 20 MG No 1{table t} QD Olmesartan Medoxomil 20 MG amLODIPine Besylate 10 MG amLODIPine Besylate 10 MG No QD amLODIPine Besylate 10 MG Atorvastati n Calcium 20 MG Atorvastati n Calcium 20 MG No QD Atorvastat in Calcium 20 MG ProAir HFA 108 (90 Base) MCG/ACT ProAir HFA 108 (90 Base) MCG/ACT No 2{puffs _as_nee ded} ProAir HFA 108 (90 Base) MCG/ACT ProAir HFA 108 (90 Base) MCG/ACT ProAir HFA 108 (90 Base) MCG/ACT No 2{puffs _as_nee ded} ProAir HFA 108 (90 Base) MCG/ACT Jentadueto XR 2.5-1000 MG Jentadueto XR 2.5-1000 MG No 2{table ts_with _a_meal } QD Jentadueto XR 2.5-1000 MG Albuterol Sulfate (2.5 MG/3ML) 0.083% Albuterol Sulfate (2.5 MG/3ML) 0.083% No 3{ml_as _needed } QID Albuterol Sulfate (2.5 MG/3ML) 0.083% Atorvastati n Calcium 20 MG Atorvastati n Calcium 20 MG No QD Atorvastat in Calcium 20 MG Atorvastati n Calcium 20 MG Atorvastati n Calcium 20 MG No QD Atorvastat in Calcium 20 MG amLODIPine Besylate 10 MG amLODIPine Besylate 10 MG No QD amLODIPine Besylate 10 MG amLODIPine Besylate 10 MG amLODIPine Besylate 10 MG No QD amLODIPine Besylate 10 MG Immunizations Ordered Immunization Name Filled Immunization Name Date Status Comments Source Flu[facility] Flu[facility] 2021-07-26 15:45:00 Completed [facility] 2021-07-26 15:45:00 Completed [facility] FluAD FluAD 2021-07-26 15:45:00 Completed [facility] Flu[facility] FluAD 2021-07-26 15:45:00 Completed [facility] Flu[facility] FluAD 2021-07-26 15:45:00 Completed [facility] Flu 2021-07-26 [facility]00 [facility] Flu[facility] FluAD 2021-07-26 15:45:00 Completed [facility] FluAD FluAD 2021-07-26 15:45:00 Completed [facility] FluAD FluAD 2021-07-26 15:45:00 Completed [facility] Pneumovax (PPSV23) Pneumovax (PPSV23) 2021-06-28 11:26:00 Completed [facility] Pneumovax (PPSV23) Pneumovax (PPSV23) 2021-06-28 11:26:00 Completed [facility] Pneumovax (PPSV23) Pneumovax (PPSV23) 2021-06-28 11:26:00 Completed [facility] Pneumovax (PPSV23) Pneumovax (PPSV23) 2021-06-28 11:26:00 Completed [facility] Pneumovax (PPSV23) Pneumovax (PPSV23) 2021-06-28 11:26:00 Completed [facility] Pneumovax (PPSV23) Pneumovax (PPSV23) 2021-06-28 11:26:00 Completed [facility] Pneumovax (PPSV23) Pneumovax (PPSV23) 2021-06-28 11:26:00 Completed [facility] Pneumovax (PPSV23) Pneumovax (PPSV23) 2021-06-28 11:26:00 Completed [facility] Pneumovax (PPSV23) Pneumovax (PPSV23) 2021-06-28 11:26:00 Completed [facility] Pneumovax (PPSV23) Pneumovax (PPSV23) 2021-06-28 11:26:00 Completed [facility] Pneumovax (PPSV23) Pneumovax (PPSV23) 2021-06-28 11:26:00 Completed [facility] Pneumovax (PPSV23) Pneumovax (PPSV23) 2021-06-28 11:26:00 Completed [facility] Pneumovax (PPSV23) Pneumovax (PPSV23) 2021-06-28 11:26:00 Completed [facility] Prevnar 13 -Pneumonia Vaccine Prevnar 13 -Pneumonia Vaccine 2020-06-20 14:25:00 Completed [facility] Prevnar 13 -Pneumonia Vaccine Prevnar 13 -Pneumonia Vaccine 2020-06-20 14:25:00 Completed [facility] Prevnar 13 -Pneumonia Vaccine Prevnar 13 -Pneumonia Vaccine 2020-06-20 14:25:00 Completed [facility] Prevnar 13 -Pneumonia Vaccine Prevnar 13 -Pneumonia Vaccine 2020-06-20 14:25:00 Completed [facility] Prevnar 13 -Pneumonia Vaccine Prevnar 13 -Pneumonia Vaccine 2020-06-20 14:25:00 Completed [facility] Prevnar 13 -Pneumonia Vaccine Prevnar 13 -Pneumonia Vaccine 2020-06-20 14:25:00 Completed [facility] Prevnar 13 -Pneumonia Vaccine Prevnar 13 -Pneumonia Vaccine 2020-06-20 14:25:00 Completed [facility] Prevnar 13 -Pneumonia Vaccine Prevnar 13 -Pneumonia Vaccine 2020-06-20 14:25:00 Completed [facility] Prevnar 13 -Pneumonia Vaccine Prevnar 13 -Pneumonia Vaccine 2020-06-20 14:25:00 Completed [facility] Prevnar 13 -Pneumonia Vaccine Prevnar 13 -Pneumonia Vaccine 2020-06-20 14:25:00 Completed [facility] Prevnar 13 -Pneumonia Vaccine Prevnar 13 -Pneumonia Vaccine 2020-06-20 14:25:00 Completed [facility] Prevnar 13 -Pneumonia Vaccine Prevnar 13 -Pneumonia Vaccine 2020-06-20 14:25:00 Completed [facility] Prevnar 13 -Pneumonia Vaccine Prevnar 13 -Pneumonia Vaccine 2020-06-20 14:25:00 Completed [facility] Prevnar 13 -Pneumonia Vaccine Prevnar 13 -Pneumonia Vaccine 2020-06-20 14:25:00 Completed [facility] Prevnar 13 -Pneumonia Vaccine Prevnar 13 -Pneumonia Vaccine 2020-06-20 14:25:00 Completed [facility] Prevnar 13 -Pneumonia Vaccine Prevnar 13 -Pneumonia Vaccine 2020-06-20 14:25:00 Completed [facility] Prevnar 13 -Pneumonia Vaccine Prevnar 13 -Pneumonia Vaccine 2020-06-20 14:25:00 Completed [facility] Prevnar 13 -Pneumonia Vaccine Prevnar 13 -Pneumonia Vaccine 2020-06-20 00:00:00 Completed [facility] FluAD FluAD Unknown Completed [facility] Pneumovax (PPSV23) Pneumovax (PPSV23) Unknown Completed [facility] Prevnar 13 -Pneumonia Vaccine Prevnar 13 -Pneumonia Vaccine Unknown Completed [facility] Flu[facility] FluAD Unknown Completed [facility] Pneumovax (PPSV23) Pneumovax (PPSV23) Unknown Completed [facility] Prevnar 13 -Pneumonia Vaccine Prevnar 13 -Pneumonia Vaccine Unknown Completed [facility] Flu[facility] FluAD Unknown Completed [facility] Pneumovax (PPSV23) Pneumovax (PPSV23) Unknown Completed [facility] Prevnar 13 -Pneumonia Vaccine Prevnar 13 -Pneumonia Vaccine Unknown Completed [facility] Flu[facility] FluAD Unknown Completed [facility] Pneumovax (PPSV23) Pneumovax (PPSV23) Unknown Completed [facility] Prevnar 13 -Pneumonia Vaccine Prevnar 13 -Pneumonia Vaccine Unknown Completed [facility] Flu[facility] FluAD Unknown Completed [facility] Pneumovax (PPSV23) Pneumovax (PPSV23) Unknown Completed [facility] Prevnar 13 -Pneumonia Vaccine Prevnar 13 -Pneumonia Vaccine Unknown Completed [facility] Flu[facility] FluAD Unknown Completed [facility] Pneumovax (PPSV23) Pneumovax (PPSV23) Unknown Completed [facility] Prevnar 13 -Pneumonia Vaccine Prevnar 13 -Pneumonia Vaccine Unknown Completed [facility] Flu[facility] FluAD Unknown Completed [facility] Pneumovax (PPSV23) Pneumovax (PPSV23) Unknown Completed [facility] Prevnar 13 -Pneumonia Vaccine Prevnar 13 -Pneumonia Vaccine Unknown Completed [facility] Flu[facility] FluAD Unknown Completed [facility] Pneumovax (PPSV23) Pneumovax (PPSV23) Unknown Completed [facility] Prevnar 13 -Pneumonia Vaccine Prevnar 13 -Pneumonia Vaccine Unknown Completed [facility] Flu[facility] FluAD Unknown Completed [facility] Pneumovax (PPSV23) Pneumovax (PPSV23) Unknown Completed [facility] Prevnar 13 -Pneumonia Vaccine Prevnar 13 -Pneumonia Vaccine Unknown Completed [facility] Flu[facility] FluAD Unknown Completed [facility] Pneumovax (PPSV23) Pneumovax (PPSV23) Unknown Completed [facility] Prevnar 13 -Pneumonia Vaccine Prevnar 13 -Pneumonia Vaccine Unknown Completed [facility] Flu[facility] FluAD Unknown Completed [facility] Pneumovax (PPSV23) Pneumovax (PPSV23) Unknown Completed [facility] Prevnar 13 -Pneumonia Vaccine Prevnar 13 -Pneumonia Vaccine Unknown Completed [facility] Flu[facility] FluAD Unknown Completed [facility] Pneumovax (PPSV23) Pneumovax (PPSV23) Unknown Completed [facility] Prevnar 13 -Pneumonia Vaccine Prevnar 13 -Pneumonia Vaccine Unknown Completed [facility] Flu[facility] FluAD Unknown Completed [facility] Pneumovax (PPSV23) Pneumovax (PPSV23) Unknown Completed [facility] Prevnar 13 -Pneumonia Vaccine Prevnar 13 -Pneumonia Vaccine Unknown Completed [facility] Flu[facility] FluAD Unknown Completed [facility] Pneumovax (PPSV23) Pneumovax (PPSV23) Unknown Completed [facility] Prevnar 13 -Pneumonia Vaccine Prevnar 13 -Pneumonia Vaccine Unknown Completed [facility] Flu[facility] FluAD Unknown Completed [facility] Pneumovax (PPSV23) Pneumovax (PPSV23) Unknown Completed [facility] Prevnar 13 -Pneumonia Vaccine Prevnar 13 -Pneumonia Vaccine Unknown Completed [facility] Flu[facility] FluAD Unknown Completed [facility] Pneumovax (PPSV23) Pneumovax (PPSV23) Unknown Completed [facility] Prevnar 13 -Pneumonia Vaccine Prevnar 13 -Pneumonia Vaccine Unknown Completed [facility] Flu[facility] FluAD Unknown Completed [facility] Pneumovax (PPSV23) Pneumovax (PPSV23) Unknown Completed [facility] Prevnar 13 -Pneumonia Vaccine Prevnar 13 -Pneumonia Vaccine Unknown Completed [facility] FluAD FluAD Unknown Completed [facility] Pneumovax (PPSV23) Pneumovax (PPSV23) Unknown Completed [facility] Prevnar 13 -Pneumonia Vaccine Prevnar 13 -Pneumonia Vaccine Unknown Completed [facility] Vital Signs Vital Name Observation Time Observation Value Comments Jeanette ponce height 2023-12-30 10:30:00 65 [in_i] Commo n [facility] weight 2023-12-30 10:30:00 171.4 [lb_av] Co mmon [facility] temperature 2023-12-30 10:30:00 98.4 [degF] Com [facility] bmi 2023-12-30 10:30:00 28.52 kg/m2 Comm on [facility] oximetry 2023-12-30 10:30:00 96 % Commo n [facility] respiratory rate 2023-12-30 10:30:00 17 /min [facility] blood pressure systolic 2023-12-30 10:30:00 130 mm[Hg] Common [facility] blood pressure diastolic 2023-12-30 10:30:00 75 mm[Hg] [facility] height 2023-09-10 08:40:00 65 [in_i] Commo n [facility] weight 2023-09-10 08:40:00 174.0 [lb_av] Co mmon [facility] temperature 2023-09-10 08:40:00 98.1 [degF] Com [facility] bmi 2023-09-10 08:40:00 28.95 kg/m2 Comm on [facility] oximetry 2023-09-10 08:40:00 96 % Commo n [facility] respiratory rate 2023-09-10 08:40:00 17 /min [facility] blood pressure systolic 2023-09-10 08:40:00 131 mm[Hg] [facility] blood pressure diastolic 2023-09-10 08:40:00 76 mm[Hg] Common [facility] height 2023-08-23 09:40:00 65 [in_i] Commo n [facility] weight 2023-08-23 09:40:00 173.4 [lb_av] Co [facility] temperature 2023-08-23 09:40:00 97.9 [degF] Com [facility] bmi 2023-08-23 09:40:00 28.85 kg/m2 Comm on [facility] oximetry 2023-08-23 09:40:00 97 % Commo n [facility] respiratory rate 2023-08-23 09:40:00 16 /min [facility] blood pressure systolic 2023-08-23 09:40:00 149 mm[Hg] Common [facility] blood pressure diastolic 2023-08-23 09:40:00 79 mm[Hg] Common [facility] height 2023-07-03 13:00:00 65 [in_i] Commo n [facility] weight 2023-07-03 13:00:00 175.6 [lb_av] Co [facility] temperature 2023-07-03 13:00:00 97.9 [degF] Com [facility] bmi 2023-07-03 13:00:00 29.22 kg/m2 Comm on [facility] oximetry 2023-07-03 13:00:00 97 % Commo n [facility] respiratory rate 2023-07-03 13:00:00 17 /min [facility] blood pressure systolic 2023-07-03 13:00:00 139 mm[Hg] [facility] blood pressure diastolic 2023-07-03 13:00:00 72 mm[Hg] Common [facility] height 2023-06-04 13:20:00 65 [in_i] Commo n [facility] weight 2023-06-04 13:20:00 176.0 [lb_av] Co mmon [facility] temperature 2023-06-04 13:20:00 98.7 [degF] Com mon [facility] bmi 2023-06-04 13:20:00 29.28 kg/m2 Comm on [facility] oximetry 2023-06-04 13:20:00 96 % Commo n [facility] respiratory rate 2023-06-04 13:20:00 17 /min [facility] blood pressure systolic 2023-06-04 13:20:00 141 mm[Hg] [facility] blood pressure diastolic 2023-06-04 13:20:00 77 mm[Hg] Common [facility] height 2023-02-22 08:10:00 65 [in_i] Commo n [facility] weight 2023-02-22 08:10:00 176 [lb_av] Comm on [facility] temperature 2023-02-22 08:10:00 98.0 [degF] Com [facility] bmi 2023-02-22 08:10:00 29.28 kg/m2 Comm on [facility] oximetry 2023-02-22 08:10:00 96 % Commo n [facility] respiratory rate 2023-02-22 08:10:00 16 /min [facility] blood pressure systolic 2023-02-22 08:10:00 130 mm[Hg] [facility] blood pressure diastolic 2023-02-22 08:10:00 76 mm[Hg] Common [facility] height 2023-02-22 08:20:00 65 [in_i] Commo n [facility] weight 2023-02-22 08:20:00 176.0 [lb_av] Co mmon [facility] temperature 2023-02-22 08:20:00 98.0 [degF] Com mon [facility] bmi 2023-02-22 08:20:00 29.28 kg/m2 Comm on [facility] oximetry 2023-02-22 08:20:00 96 % Commo n [facility] respiratory rate 2023-02-22 08:20:00 16 /min [facility] blood pressure systolic 2023-02-22 08:20:00 130 mm[Hg] Common [facility] blood pressure diastolic 2023-02-22 08:20:00 76 mm[Hg] [facility] height 2022-12-14 09:00:00 65 [in_i] Commo n [facility] weight 2022-12-14 09:00:00 177.6 [lb_av] Co mmon [facility] temperature 2022-12-14 09:00:00 98.6 [degF] Com mon [facility] bmi 2022-12-14 09:00:00 29.55 kg/m2 Comm on [facility] oximetry 2022-12-14 09:00:00 97 % Commo n [facility] respiratory rate 2022-12-14 09:00:00 16 /min [facility] blood pressure systolic 2022-12-14 09:00:00 135 mm[Hg] [facility] blood pressure diastolic 2022-12-14 09:00:00 72 mm[Hg] [facility] Systolic blood pressure 2022-08-11 20:46:00 164 mm[Hg] [facility] Diastolic blood pressure 2022-08-11 20:46:00 91 mm[Hg] [facility] Heart rate 2022-08-11 20:46:00 58 /min [facility] Respiratory rate 2022-08-11 20:46:00 16 /min [facility] Oxygen saturation in Arterial blood by Pulse oximetry 2022-08-11 20:46:00 97 /min [facility] Body temperature 2022-08-11 18:22:00 36.67 [facility] Body weight 2022-08-11 18:22:00 79.379 kg [facility] BMI 2022-08-11 18:22:00 30.04 kg/m2 [facility] height 2022-03-23 10:00:00 65 [in_i] Commo n [facility] weight 2022-03-23 10:00:00 182.5 [lb_av] Co mmon [facility] temperature 2022-03-23 10:00:00 97.5 [degF] Com mon [facility] bmi 2022-03-23 10:00:00 30.37 kg/m2 Comm on [facility] oximetry 2022-03-23 10:00:00 95 % Commo n [facility] respiratory rate 2022-03-23 10:00:00 16 /min [facility] blood pressure systolic 2022-03-23 10:00:00 132 mm[Hg] Common [facility] blood pressure diastolic 2022-03-23 10:00:00 74 mm[Hg] Common [facility] height 2022-03-23 09:50:00 65 [in_i] Commo n [facility] weight 2022-03-23 09:50:00 182.5 [lb_av] Co mmon [facility] temperature 2022-03-23 09:50:00 97.5 [degF] Com mon [facility] bmi 2022-03-23 09:50:00 30.37 kg/m2 Comm on [facility] oximetry 2022-03-23 09:50:00 93 % Commo n [facility] respiratory rate 2022-03-23 09:50:00 16 /min [facility] blood pressure systolic 2022-03-23 09:50:00 132 mm[Hg] [facility] blood pressure diastolic 2022-03-23 09:50:00 74 mm[Hg] [facility] height 2021-09-27 08:50:00 65 [in_i] Commo n [facility] weight 2021-09-27 08:50:00 180.1 [lb_av] Co mmon [facility] temperature 2021-09-27 08:50:00 98.5 [degF] Com mon [facility] bmi 2021-09-27 08:50:00 29.97 kg/m2 Comm on [facility] oximetry 2021-09-27 08:50:00 94 % Commo n [facility] respiratory rate 2021-09-27 08:50:00 16 /min [facility] blood pressure systolic 2021-09-27 08:50:00 135 mm[Hg] Common [facility] blood pressure diastolic 2021-09-27 08:50:00 72 mm[Hg] [facility] height 2021-09-12 08:20:00 65 [in_i] Commo n [facility] weight 2021-09-12 08:20:00 181 [lb_av] Comm on [facility] temperature 2021-09-12 08:20:00 97.8 [degF] Com [facility] bmi 2021-09-12 08:20:00 30.12 kg/m2 Comm on [facility] oximetry 2021-09-12 08:20:00 94 % Commo n [facility] blood pressure systolic 2021-09-12 08:20:00 145 mm[Hg] [facility] blood pressure diastolic 2021-09-12 08:20:00 78 mm[Hg] [facility] height 2021-07-26 15:00:00 65 [in_i] Commo n [facility] weight 2021-07-26 15:00:00 175.8 [lb_av] Co mmon [facility] temperature 2021-07-26 15:00:00 98.1 [degF] Com mon [facility] bmi 2021-07-26 15:00:00 29.25 kg/m2 Comm on [facility] oximetry 2021-07-26 15:00:00 96 % Commo n [facility] respiratory rate 2021-07-26 15:00:00 19 /min [facility] blood pressure systolic 2021-07-26 15:00:00 134 mm[Hg] [facility] blood pressure diastolic 2021-07-26 15:00:00 77 mm[Hg] Common [facility] height 2021-06-28 10:50:00 65 [in_i] Commo n [facility] weight 2021-06-28 10:50:00 181.1 [lb_av] Co on [facility] temperature 2021-06-28 10:50:00 98.2 [degF] Com [facility] bmi 2021-06-28 10:50:00 30.13 kg/m2 Comm on [facility] oximetry 2021-06-28 10:50:00 95 % Commo n [facility] respiratory rate 2021-06-28 10:50:00 17 /min [facility] blood pressure systolic 2021-06-28 10:50:00 148 mm[Hg] Common [facility] blood pressure diastolic 2021-06-28 10:50:00 74 mm[Hg] Common [facility] height 2021-06-22 11:20:00 65 [in_i] Commo n [facility] weight 2021-06-22 11:20:00 172 [lb_av] Comm on [facility] temperature 2021-06-22 11:20:00 97.8 [degF] Com [facility] bmi 2021-06-22 11:20:00 28.62 kg/m2 Comm on [facility] oximetry 2021-06-22 11:20:00 95 % Commo n [facility] blood pressure systolic 2021-06-22 11:20:00 161 mm[Hg] [facility] blood pressure diastolic 2021-06-22 11:20:00 78 mm[Hg] [facility] Procedures Procedure Date / Time Performed Performing Clinicia n Source REFERRAL- REQUEST/RESPONSE 2023-01-23 05:01:00 Doctor Unassigned, [place] [facility] XR CERVICAL SPINE 3 VW 2022-08-11 18:56:43 Zeina Wilkins ala [facility] CONSENT/REFUSAL FOR DIAGNOSIS AND TREATMENT 2022-08-11 17:58:42 Doctor Unassigned, [place] [facility] US SCROTUM AND CONTENTS 2022-06-08 15:21:19 Nicole Carrion [facility] ASSIGNMENT OF BENEFITS 2022-06-08 14:31:57 Docto r Unassigned, [place] [facility] Encounters Start Date/Time End Date/Time Encounter Type Admission Type Attending Clinicians Care Facility Care Department Encounter ID Source 2023-12-27 10:00[id number] 2023-08-20 10:10:00 Outpatient Moore, [facility] [id number] [facility] 2023-07-03 13:09:00 [facility] [id number] [facility] 2022-12-12 07:22:00 [facility] [id number] [facility] 2022-11-30 09:29:00 [facility] [id number] [facility] 2022-06-21 10:44:00 [facility] [id number] [facility] 2022-06-20 10:09:00 Outpatient Moore, [facility] [id number] [facility] 2022-03-21 09:00:01 Outpatient Moore, [facility] [id number] [facility] 2021-11-22 13:54:16 Outpatient Moore, [facility] [id number] [facility] 2021-11-22 13:45:00 Outpatient Moore, [facility] [id number] [facility] 2021-11-22 13:43:12 [facility] [id number] [facility] 2021-11-22 13:04:42 [facility] [id number] [facility] 2021-11-22 12:25:00 [facility] [id number] [facility] 2021-11-22 11:39:39 [facility] [id number] [facility] 2021-11-22 11:15:21 [facility] [id number] [facility] 2021-11-22 11:10:24 Outpatient Moore, [facility] [id number] [facility] 2021-11-22 11:07:28 [facility] [id number] [facility] 2024-01-17 09:14:04 2024-01-17 09:14:04 Outpatient [facility]ST[facility] [id number] Ezio Hernandes 2024-01-03 10:37:27 2024-01-03 10:37:[address] [facility] [id number] Ezio Hernandes 2023-12-30 00:00:00 2023-12-30 00:00:00 OFFICE VISIT ESTAB PT LEVEL 4 STLMLC STLMLC [id number] [facility] 2023-12-30 00:00:00 2023-12-30 00:00:00 (TEL) STLMLC STLMLC [id number] [facility] 2023-12-25 00:00:00 2023-12-25 00:00:00 (TEL) STLMLC STLMLC [id number] [facility] 2023-09-23 00:00:00 2023-09-23 00:00:00 (TEL) STLMLC STLMLC [id number] [facility] 2023-09-18 00:00:00 2023-09-18 00:00:00 (TEL) STLMLC STLMLC [id number] [facility] 2023-09-10 00:00:00 2023-09-10 00:00:00 OFFICE VISIT ESTAB PT LEVEL 4 STLMLC STLMLC [id number] [facility] 2023-08-23 00:00:00 2023-08-23 00:00:00 OFFICE VISIT ESTAB PT LEVEL 4 STLMLC STLMLC [id number] [facility] 2023-08-20 00:00:00 2023-08-20 00:00:00 (TEL) STLMLC STLMLC [id number] [facility] 2023-07-04 00:00:00 2023-07-04 00:00:00 (TEL) STLMLC STLMLC [id number] [facility] 2023-07-03 00:00:00 2023-07-03 00:00:00 OFFICE VISIT ESTAB PT LEVEL 3 STLMLC STLMLC [id number] [facility] 2023-07-03 00:00:00 2023-07-03 00:00:00 (TEL) STLMLC STLMLC [id number] [facility] 2023-06-04 00:00:00 2023-06-04 00:00:00 OFFICE VISIT ESTAB PT LEVEL 4 STLMLC STLMLC [id number] [facility] 2023-02-22 00:00:00 2023-02-22 00:00:00 OFFICE VISIT ESTAB PT LEVEL 4 STLMLC STLMLC [id number] [facility] 2023-02-22 00:00:00 2023-02-22 00:00:00 ([facility] Medicare Wellness STLMLC STLMLC [id number] [facility] 2023-01-23 00:00:00 2023-01-23 00:00:00 Orders Only Doctor Unassigned, [place] [facility] [id number] [facility] 2023-01-15 00:00:00 2023-01-15 00:00:00 Telephone Behzad Layne [facility] [id number] [facility] 2023-01-11 11:00:00 2023-01-11 11:00:00 Outpatient [facility] [id number] [facility] 2023-01-11 00:00:00 2023-01-11 00:00:00 (TEL) STLMLC STLMLC [id number] [facility] 2023-01-04 00:00:00 2023-01-04 00:00:00 (TEL) STLMLC STLMLC [id number] [facility] 2022-12-14 00:00:00 2022-12-14 00:00:00 OFFICE VISIT ESTAB PT LEVEL 4 STLMLC STLMLC [id number] [facility] 2022-12-07 00:00:00 2022-12-07 00:00:00 (TEL) STLMLC STLMLC [id number] [facility] 2022-11-30 00:00:00 2022-11-30 00:00:00 (TEL) STLMLC STLMLC [id number] [facility] 2022-11-30 00:00:00 2022-11-30 00:00:00 (TEL) STLMLC STLMLC [id number] [facility] 2022-08-11 13:30:00 2022-08-11 15:53:00 Emergency X [facility]AH WILKINS [facility] ERT [id number] [facility] 2022-08-11 13:30:00 2022-08-11 15:53:00 Emergency Noah Wilkins [facility] [id number] [facility] 2022-06-08 09:34:57 2022-06-08 23:59:00 Hospital Encounter Nicole Carrion [facility] [id number] [facility] 2022-06-08 09:34:57 2022-06-08 23:59:00 Outpatient R [facility] [id number] [facility] 2022-06-08 00:00:00 2022-06-08 00:00:00 Orders Only Doctor Unassigned, [place] [facility] [id number] [facility] 2022-03-27 00:00:00 2022-03-27 00:00:00 (TEL) STLMLC STLMLC [id number] [facility] 2022-03-23 00:00:00 2022-03-23 00:00:00 (MCR WELL) Medicare Wellness STLMLC STLMLC [id number] [facility] 2022-03-23 00:00:00 2022-03-23 00:00:00 OFFICE VISIT ESTAB PT LEVEL 4 STLMLC STLMLC [id number] [facility] 2022-01-23 00:00:00 2022-01-23 00:00:00 (TEL) STLMLC STLMLC [id number] [facility] 2021-12-04 00:00:00 2021-12-04 00:00:00 (TEL) STLMLC STLMLC [id number] [facility] 2021-09-27 00:00:00 2021-09-27 00:00:00 OFFICE VISIT ESTAB PT LEVEL 4 STLMLC STLMLC [id number] [facility] 2021-09-12 00:00:00 2021-09-12 00:00:00 OFFICE VISIT EST PT LEVEL 3 STLMLC STLMLC [id number] [facility] 2021-09-11 00:00:00 2021-09-11 00:00:00 (TEL) STLMLC STLMLC [id number] [facility] 2021-07-26 00:00:00 2021-07-26 00:00:00 OFFICE VISIT EST PT LEVEL 3 STLMLC STLMLC [id number] [facility] 2021-07-13 00:00:00 2021-07-13 00:00:00 (TEL) STLMLC STLMLC [id number] [facility] 2021-06-28 00:00:00 2021-06-28 00:00:00 OFFICE VISIT ESTAB PT LEVEL 4 STLMLC STLMLC [id number] [facility] 2021-06-22 00:00:00 2021-06-22 00:00:00 OFFICE VISIT EST PT LEVEL 3 STLMLC STLMLC [id number] [facility] 2021-06-21 00:00:00 2021-06-21 00:00:00 (TEL) STLMLC STLMLC [id number] [facility] 2021-06-20 00:00:00 2021-06-20 00:00:00 (TEL) STLMLC STLMLC [id number] [facility] 2021-04-11 00:00:00 2021-04-11 00:00:00 (TEL) STLMLC STLMLC [id number] [facility] 2021-03-22 00:00:00 2021-03-22 00:00:00 Outpatient STLMLC STLMLC [id number] [facility] 2021-03-20 00:00:00 2021-03-20 00:00:00 Outpatient STLMLC STLMLC [id number] [facility] 2021-03-14 00:00:00 2021-03-14 00:00:00 Outpatient STLMLC STLMLC [id number] [facility] 2020-12-22 00:00:00 2020-12-22 00:00:00 Outpatient STLMLC STLMLC [id number] [facility] 2020-12-19 00:00:00 2020-12-19 00:00:00 Outpatient STLMLC STLMLC [id number] [facility] 2020-12-07 00:00:00 2020-12-07 00:00:00 Outpatient STLMLC STLMLC [id number] [facility] 2020-11-22 00:00:00 2020-11-22 00:00:00 Outpatient STLMLC STLMLC [id number] [facility] 2020-11-21 00:00:00 2020-11-21 00:00:00 Outpatient STLMLC STLMLC [id number] [facility] 2020-11-21 00:00:00 2020-11-21 00:00:00 Outpatient STLMLC STLMLC [id number] [facility] 2020-11-02 00:00:00 2020-11-02 00:00:00 Outpatient STLMLC STLMLC [id number] [facility] 2020-08-26 00:00:00 2020-08-26 00:00:00 Outpatient STLMLC STLC [id number] [facility] 2020-06-20 14:29:00 2020-06-20 14:29:[address] [facility] [id number] [facility] 2020-06-20 14:00:00 2020-06-20 14:00:[address] [facility] [id number] [facility] 2020-06-16 15:45:00 2020-06-16 15:45:[address] [facility] [facility] [id number] [facility] 2020-04-22 13:40:00 2020-04-22 13:40:[address] [facility] [id number] [facility] 2020-04-21 12:09:00 2020-04-21 12:09:[address] [facility] [id number] [facility] 2020-04-14 06:56:00 2020-04-14 06:56:[address] [facility] [facility] [id number] [facility] 2020-01-21 15:45:00 2020-01-21 15:45:[address] [facility] [facility] [id number] [facility] 2019-12-25 15:52:00 2019-12-25 15:52:[address] [facility] [id number] [facility] 2019-12-24 16:00:00 2019-12-24 16:00:[address] [facility] [facility] [id number] [facility] 2019-12-23 15:30:00 2019-12-23 15:30:[address] [facility] [id number] [facility] 2019-02-25 08:53:00 2019-02-25 08:53:00 Outpatient [facility] [id number] [facility] 2019-01-14 16:00:00 2019-01-14 16:00:00 Outpatient [facility] [id number] [facility] 2018-12-31 16:00:00 2018-12-31 16:00:00 Outpatient [facility] [id number] [facility] 2018-10-23 16:15:00 2018-10-23 16:15:00 Outpatient [facility] [id number] [facility] Results Test Description Test Time Test Comments Results Result Co mments Source PSA, [id number] 04:01:49* Test Item Value Reference Range Interpretation Comme nts PSA, TOTAL (test code = 2606) 1.50 NG/ML <=4.00 NOTE: Methodolog y is Yamilka Kady Electrochemiluminescence Immunoassay traceable to WHO reference standard 96/760. UNLESS OTHERWISE INDICATED, ALL TESTING PERFORMED AT [facility] [address] [place] [address] SALES SYSTEMS ENGINEER: HORACIO FOREMAN M.D. CLIA NUMBER [id number] [facility] [place]. [id number] LIPID [id number] 04:00:28* Test Item Value Reference Range Interpretation Comme nts CHOLESTEROL (test code = 2210) 146 MG/DL <200 TRIGLYCERIDES (test code = 2232) 180 MG/DL <150 H HDL CHOLESTEROL (test code = 2220) 49 MG/DL >39 CALC LDL CHOL (test code = 2237) 71 MG/DL <100 NOTE: CALCULATED LDL IS BASED ON SUSY-LAWSON METHOD WHICHINCLUDES ADJUSTABLE TRIGLYCERIDE:VLDL CHOLESTEROL RATIO.THIS FACTOR VARIES BY MEASURED TRIGLYCERIDE AND NON-HDLCHOLESTEROL CONCENTRATIONS WITH INCREASED CALCULATED LDL SEENIN HIGHER TRIGLYCERIDE OR LOWER NON-HDL SPECIMENS. FOR MOREINFORMATION, SEE CLIENT ANNOUNCEMENT AT [email or web address] RISK RATIO LDL/HDL (test code = 223) 1.45 RATIO <3.55 COMPREHENSIVE METABOLIC [id number] 04:00:28* Test Item Value Reference Range Interpretation Comme nts GLUCOSE (test code = 7) 110 MG/DL 70-99 H BUN (test code = 2207) 10 MG/DL 8-23 CREATININE (test code = 221) 0.74 MG/DL 0.80-1.40 L eGFR (2020 CKD-EPI) (test co de = 02805) 97 ML/MIN/1.73 >60 CALC BUN/CREAT (test code = 223) 14 RATIO 6-28 SODIUM (test code = 2230) 139 MEQ/L 133-146 POTASSIUM (test code = 222) 4.4 MEQ/L 3.5-5.4 CHLORIDE (test code = 2214) 101 MEQ/L 95-107 CARBON DIOXIDE (test code = 2206) 26 MEQ/L 19-31 CALCIUM (test code = 220) 9.6 MG/DL 8.5-10.5 PROTEIN, TOTAL (test code = 222) 6.9 G/DL 6.1-8.3 ALBUMIN (test code = 220) 4.3 G/DL 3.5-5.2 CALC GLOBULIN (test code = 2240) 2.6 G/DL 1.9-3.7 CALC A/G RATIO (test code = 2234) 1.7 RATIO 1.0-2.6 BILIRUBIN, TOTAL (test code = 2206) 0.5 MG/DL <=1.2 ALKALINE PHOSPHATASE (test code = 2203) 68 U/L 40-125 AST (test code = 2218) 17 U/L 9-50 ALT (test code = 2219) 19 U/L 5-50 CBC W/AUTO DIFF WITH [id number] 03:04:56* Test Item Value Reference Range Interpretation Comme nts WBC (test code = 1001) 6.5 K/UL 3.5-11.0 RBC (test code = 1002) 4.85 M/UL 4.50-6.10 HEMOGLOBIN (test code = 1003) 16.1 G/DL 13.5-17.0 HEMATOCRIT (test code = 1004) 45.7 % 40.0-51.0 MCV (test code = 1005) 94.2 fL 80.0-99.0 MCH (test code = 1006) 33.2 PG 25.0-33.0 H MCHC (test code = 1007) 35.2 G/DL 31.0-36.0 RDW (test code = 1038) 12.1 % 11.5-15.0 NEUTROPHILS (test code = 1008) 62.0 % LYMPHOCYTES (test code = 1010) 24.3 % MONOCYTES (test code = 1011) 10.6 % EOSINOPHILS (test code = 1012) 2.1 % BASOPHILS (test code = 1013) 0.8 % IMMATURE GRANULOCYTES (test code = 1036) 0.2 % NUCLEATED RBCS (test code = 1065) 0.0 /100 WBC'S See_Comment [Automated [employer]] The system which generated this result transmitted reference range: 0.0. The reference range was not used to interpret this result as normal/abnormal. PLATELET COUNT (test code = 1015) 244 K/UL 130-400 ABSOLUTE NEUTROPHILS (test code = 1066) 4.05 K/UL 1.50-7.50 ABSOLUTE LYMPHOCYTES (test code = 1067) 1.59 K/UL 1.00-4.00 ABSOLUTE MONOCYTES (test code = 1068) 0.69 K/UL 0.20-1.00 ABSOLUTE EOSINOPHILS (test code = 1040) 0.14 K/UL 0.00-0.50 ABSOLUTE BASOPHILS (test code = 1069) 0.05 K/UL 0.00-0.20 ABS IMMATURE GRANULOCYTES (test code = 1020) 0.01 K/UL 0.00-0.10 ABS NUCLEATED RBCS (test code = 96730) 0.00 K/UL 0.00-0.11 CBC W/AUTO [id number] 00:00:00* Test Item Value Reference Range Interpretation Comme nts NUCLEATED RBCS (test code = 47822-3) 0.0 /100 WBC'S See_Comment [Automated [employer]] The system which generated this result transmitted reference range: 0.0 /100 WBC'S. The reference range was not used to interpret this result as normal/abnormal. ABSOLUTE EOSINOPHILS (test code = 95388-8) 0.09 K/UL See_Comment [Automated [employer]] The system which generated this result transmitted reference range: 0.00-0.50 K/UL. The reference range was not used to interpret this result as normal/abnormal. ABSOLUTE LYMPHOCYTES (test code = 96097-6) 1.49 K/UL See_Comment [Automated messa ge] The system which generated this result transmitted reference range: 1.00-4.00 K/UL. The reference range was not used to interpret this result as normal/abnormal. ABSOLUTE MONOCYTES (test code = 67913-0) 0.66 K/UL See_Comment [Automated messa ge] The system which generated this result transmitted reference range: 0.20-1.00 K/UL. The reference range was not used to interpret this result as normal/abnormal. ABSOLUTE NEUTROPHILS (test code = 06884-6) 5.00 K/UL See_Comment [Automated messa ge] The system which generated this result transmitted reference range: 1.50-7.50 K/UL. The reference range was not used to interpret this result as normal/abnormal. BASOPHILS (test code = 67467-3) 0.5 % EOSINOPHILS (test code = 19665-3) 1.2 % HEMATOCRIT (test code = 26233-6) 45.2 % See_Comment [Automated messa ge] The system which generated this result transmitted reference range: 40.0-51.0 %. The reference range was not used to interpret this result as normal/abnormal. HEMOGLOBIN (test code = 718-7) 15.6 G/DL See_Comment [Automated messa ge] The system which generated this result transmitted reference range: 13.5-17.0 G/DL. The reference range was not used to interpret this result as normal/abnormal. LYMPHOCYTES (test code = 06069-7) 20.4 % MCH (test code = 55453-5) 32.7 PG See_Comment [Automated messa ge] The system which generated this result transmitted reference range: 25.0-33.0 PG. The reference range was not used to interpret this result as normal/abnormal. MCHC (test code = 79656-6) 34.5 G/DL See_Comment [Automated messa ge] The system which generated this result transmitted reference range: 31.0-36.0 G/DL. The reference range was not used to interpret this result as normal/abnormal. MCV (test code = 44852-4) 94.8 fL See_Comment [Automated messa ge] The system which generated this result transmitted reference range: 80.0-99.0 fL. The reference range was not used to interpret this result as normal/abnormal. MONOCYTES (test code = 89456-5) 9.0 % NEUTROPHILS (test code = 12857-9) 68.6 % PLATELET COUNT (test code = 49026-6) 266 K/UL See_Comment [Automated messa ge] The system which generated this result transmitted reference range: 130-400 K/UL. The reference range was not used to interpret this result as normal/abnormal. RBC (test code = 00168-2) 4.77 M/UL See_Comment [Automated messa ge] The system which generated this result transmitted reference range: 4.50-6.10 M/UL. The reference range was not used to interpret this result as normal/abnormal. RDW (test code = 53247-6) 12.2 % See_Comment [Automated messa ge] The system which generated this result transmitted reference range: 11.5-15.0 %. The reference range was not used to interpret this result as normal/abnormal. WBC (test code = 87029-5) 7.3 K/UL See_Comment [Automated messa ge] The system which generated this result transmitted reference range: 3.5-11.0 K/UL. The reference range was not used to interpret this result as normal/abnormal. HEMOGLOBIN [id number] 00:00:00* Test Item Value Reference Range Interpretation Comme nts HEMOGLOBIN A1c (test code = 4548-4) 7.9 % See_Comment H [Automated messa ge] The system which generated this result transmitted reference range: 4.2-5.6 %. The reference range was not used to interpret this result as normal/abnormal. LIPID PANEL WITH REFLEX DIRECT [id number] 00:00:00* Test Item Value Reference Range Interpretation Comme nts CALC LDL CHOL (test code = 85194-1) 69 MG/DL See_Comment [Automated messa ge] The system which generated this result transmitted reference range: <100 MG/DL. The reference range was not used to interpret this result as normal/abnormal. CHOLESTEROL (test code = 2093-3) 151 MG/DL See_Comment [Automated messa ge] The system which generated this result transmitted reference range: <200 MG/DL. The reference range was not used to interpret this result as normal/abnormal. HDL CHOLESTEROL (test code = 2085-9) 41 MG/DL See_Comment [Automated [employer] ge] The system which generated this result transmitted reference range: >39 MG/DL. The reference range was not used to interpret this result as normal/abnormal. RISK RATIO LDL/HDL (test code = 95108-4) 1.68 RATIO See_Comment [Automated message] The system which generated this result transmitted reference range: <3.55 RATIO. The reference range was not used to interpret this result as normal/abnormal. TRIGLYCERIDES (test code = 2571-8) 341 MG/DL See_Comment H [Automated [employer]] The system which generated this result transmitted reference range: <150 MG/DL. The reference range was not used to interpret this result as normal/abnormal. ALBUMIN/CREATININE RATIO, RANDOM [id number] 00:00:00* Test Item Value Reference Range Interpretation Comme nts ALBUMIN, URINE, RANDOM (test code = 20083-9) 6.2 MG/DL NOT ESTAB MG/DL CALC ALBUMIN/CREAT, RND (test code = 31870-7) 23 MG/G See_Comment [Automated [employer]] The system which generated this result transmitted reference range: <30 MG/G. The reference range was not used to interpret this result as normal/abnormal. CREATININE, URINE, CONC. (test code = 2161-8) 267.9 MG/DL NOT ESTAB MG/DL COMPREHENSIVE METABOLIC [id number] 00:00:00* Test Item Value Reference Range Interpretation Comme nts ALBUMIN (test code = 1751-7) 4.6 G/DL See_Comment [Automated [employer] ge] The system which generated this result transmitted reference range: 3.5-5.2 G/DL. The reference range was not used to interpret this result as normal/abnormal. ALKALINE PHOSPHATASE (test code = 6768-6) 63 U/L See_Comment [Automated message] The system which generated this result transmitted reference range: 40-125 U/L. The reference range was not used to interpret this result as normal/abnormal. BILIRUBIN, TOTAL (test code = 1975-2) 0.4 MG/DL See_Comment [Automated message] The system which generated this result transmitted reference range: <=1.2 MG/DL. The reference range was not used to interpret this result as normal/abnormal. BUN (test code = 3094-0) 18 MG/DL See_Comment [Automated messa ge] The system which generated this result transmitted reference range: 8-23 MG/DL. The reference range was not used to interpret this result as normal/abnormal. CALCIUM (test code = 71125-2) 9.1 MG/DL See_Comment [Automated messa ge] The system which generated this result transmitted reference range: 8.5-10.5 MG/DL. The reference range was not used to interpret this result as normal/abnormal. CALC A/G RATIO (test code = 1759-0) 1.9 RATIO See_Comment [Automated messa ge] The system which generated this result transmitted reference range: 1.0-2.6 RATIO. The reference range was not used to interpret this result as normal/abnormal. CALC BUN/CREAT (test code = 3097-3) 20 RATIO See_Comment [Automated messa ge] The system which generated this result transmitted reference range: 6-28 RATIO. The reference range was not used to interpret this result as normal/abnormal. CALC GLOBULIN (test code = 68127-6) 2.4 G/DL See_Comment [Automated messa ge] The system which generated this result transmitted reference range: 1.9-3.7 G/DL. The reference range was not used to interpret this result as normal/abnormal. CARBON DIOXIDE (test code = 1963-8) 24 MEQ/L See_Comment [Automated messa ge] The system which generated this result transmitted reference range: 19-31 MEQ/L. The reference range was not used to interpret this result as normal/abnormal. CHLORIDE (test code = 2075-0) 102 MEQ/L See_Comment [Automated messa ge] The system which generated this result transmitted reference range: 95-107 MEQ/L. The reference range was not used to interpret this result as normal/abnormal. CREATININE (test code = 2160-0) 0.88 MG/DL See_Comment [Automated messa ge] The system which generated this result transmitted reference range: 0.80-1.40 MG/DL. The reference range was not used to interpret this result as normal/abnormal. eGFR (2020 CKD-EPI) (test code = 65965-3) 93 ML/MIN/1.73 See_Comment [Automated messa ge] The system which generated this result transmitted reference range: >60 ML/MIN/1.73. The reference range was not used to interpret this result as normal/abnormal. GLUCOSE (test code = 1558-6) 205 MG/DL See_Comment H [Automated messa ge] The system which generated this result transmitted reference range: 70-99 MG/DL. The reference range was not used to interpret this result as normal/abnormal. POTASSIUM (test code = 2823-3) 4.3 MEQ/L See_Comment [Automated messa ge] The system which generated this result transmitted reference range: 3.5-5.4 MEQ/L. The reference range was not used to interpret this result as normal/abnormal. PROTEIN, TOTAL (test code = 2885-2) 7.0 G/DL See_Comment [Automated messa ge] The system which generated this result transmitted reference range: 6.1-8.3 G/DL. The reference range was not used to interpret this result as normal/abnormal. AST (test code = 1920-8) 16 U/L See_Comment [Automated messa ge] The system which generated this result transmitted reference range: 9-50 U/L. The reference range was not used to interpret this result as normal/abnormal. ALT (test code = 1742-6) 13 U/L See_Comment [Automated messa ge] The system which generated this result transmitted reference range: 5-50 U/L. The reference range was not used to interpret this result as normal/abnormal. SODIUM (test code = 2951-2) 140 MEQ/L See_Comment [Automated messa ge] The system which generated this result transmitted reference range: 133-146 MEQ/L. The reference range was not used to interpret this result as normal/abnormal. CBC W/AUTO [id number] 00:00:00* Test Item Value Reference Range Interpretation Comme nts NUCLEATED RBCS (test code = 20020-3) 0.0 /100 WBC'S See_Comment [Automated messa ge] The system which generated this result transmitted reference range: 0.0 /100 WBC'S. The reference range was not used to interpret this result as normal/abnormal. ABSOLUTE EOSINOPHILS (test code = 58808-6) 0.19 K/UL See_Comment [Automated messa ge] The system which generated this result transmitted reference range: 0.00-0.50 K/UL. The reference range was not used to interpret this result as normal/abnormal. ABSOLUTE LYMPHOCYTES (test code = 53982-9) 1.15 K/UL See_Comment [Automated messa ge] The system which generated this result transmitted reference range: 1.00-4.00 K/UL. The reference range was not used to interpret this result as normal/abnormal. ABSOLUTE MONOCYTES (test code = 75354-3) 0.60 K/UL See_Comment [Automated messa ge] The system which generated this result transmitted reference range: 0.20-1.00 K/UL. The reference range was not used to interpret this result as normal/abnormal. ABSOLUTE NEUTROPHILS (test code = 94140-2) 3.95 K/UL See_Comment [Automated messa ge] The system which generated this result transmitted reference range: 1.50-7.50 K/UL. The reference range was not used to interpret this result as normal/abnormal. BASOPHILS (test code = 36338-6) 1.0 % EOSINOPHILS (test code = 85410-2) 3.2 % HEMATOCRIT (test code = 23201-3) 43.3 % See_Comment [Automated messa ge] The system which generated this result transmitted reference range: 40.0-51.0 %. The reference range was not used to interpret this result as normal/abnormal. HEMOGLOBIN (test code = 718-7) 15.2 G/DL See_Comment [Automated messa ge] The system which generated this result transmitted reference range: 13.5-17.0 G/DL. The reference range was not used to interpret this result as normal/abnormal. LYMPHOCYTES (test code = 70738-7) 19.3 % MCH (test code = 62935-0) 33.8 PG See_Comment H [Automated messa ge] The system which generated this result transmitted reference range: 25.0-33.0 PG. The reference range was not used to interpret this result as normal/abnormal. MCHC (test code = 07292-5) 35.1 G/DL See_Comment [Automated messa ge] The system which generated this result transmitted reference range: 31.0-36.0 G/DL. The reference range was not used to interpret this result as normal/abnormal. MCV (test code = 28983-3) 96.2 fL See_Comment [Automated messa ge] The system which generated this result transmitted reference range: 80.0-99.0 fL. The reference range was not used to interpret this result as normal/abnormal. MONOCYTES (test code = 09059-5) 10.1 % NEUTROPHILS (test code = 79920-8) 66.1 % PLATELET COUNT (test code = 52020-0) 228 K/UL See_Comment [Automated messa ge] The system which generated this result transmitted reference range: 130-400 K/UL. The reference range was not used to interpret this result as normal/abnormal. RBC (test code = 66955-6) 4.50 M/UL See_Comment [Automated messa ge] The system which generated this result transmitted reference range: 4.50-6.10 M/UL. The reference range was not used to interpret this result as normal/abnormal. RDW (test code = 32145-2) 12.5 % See_Comment [Automated messa ge] The system which generated this result transmitted reference range: 11.5-15.0 %. The reference range was not used to interpret this result as normal/abnormal. WBC (test code = 81540-5) 6.0 K/UL See_Comment [Automated messa ge] The system which generated this result transmitted reference range: 3.5-11.0 K/UL. The reference range was not used to interpret this result as normal/abnormal. PSA W/REFLEX TO FREE [id number] 00:00:00* Test Item Value Reference Range Interpretation Comme nts PROSTATE SPECIFIC AG (test code = 27422-8) 2.15 NG/ML See_Comment [Automated messa ge] The system which generated this result transmitted reference range: <=4.00 NG/ML. The reference range was not used to interpret this result as normal/abnormal. HEMOGLOBIN [id number] 00:00:00* Test Item Value Reference Range Interpretation Comme nts HEMOGLOBIN A1c (test code = 4548-4) 7.8 % See_Comment H [Automated messa ge] The system which generated this result transmitted reference range: 4.2-5.6 %. The reference range was not used to interpret this result as normal/abnormal. TSH REFLEX TO FREE [id number] 00:00:00* Test Item Value Reference Range Interpretation Comme nts TSH REFLEX TO FREE T4 (test code = 38748-1) 1.600 UIU/ML See_Comment [Automated [employer]] The system which generated this result transmitted reference range: 0.400-4.100 UIU/ML. The reference range was not used to interpret this result as normal/abnormal. URINALYSIS (CULTURE IF INDICATED)2023-05-24 00:00:00* Test Item Value Reference Range Interpretation Comme nts APPEARANCE (test code = 5767-9) TURBID CLEAR A BACTERIA (test code = 43479-4) NONE SEEN NONE SEEN BILIRUBIN (test code = 5770-3) NEGATIVE NEGATIVE CASTS, HYALINE (test code = 17745-9) NONE SEEN NONE-TRACE COLOR (test code = 5778-6) DARK YELLOW YELLOW-STRAW A EPITHELIAL CELLS (test code = 31196-8) 0-5 /HPF See_Comment [Automated [employer]] The system which generated this result transmitted reference range: 0-5 /HPF. The reference range was not used to interpret this result as normal/abnormal. GLUCOSE (test code = 5792-7) 3+ NEGATIVE A KETONES (test code = 5797-6) NEGATIVE NEGATIVE LEUKOCYTE ESTERASE (test code = 5799-2) NEGATIVE NEGATIVE NITRITE (test code = 5802-4) NEGATIVE NEGATIVE OCCULT BLOOD (test code = 53555-9) TRACE NEGATIVE A pH (test code = 5803-2) 5.0 5.0-9.0 PROTEIN (test code = 09722-6) NEGATIVE NEGATIVE RED BLOOD CELLS (test code = 29635-5) 0-2 /HPF See_Comment [Automated [employer] ge] The system which generated this result transmitted reference range: 0-2 /HPF. The reference range was not used to interpret this result as normal/abnormal. SPECIFIC GRAVITY (test code = 5811-5) 1.028 1.005-1.035 UROBILINOGEN (test code = 83457-4) 0.2 MG/DL See_Comment [Automated [employer]] The system which generated this result transmitted reference range: <=2.0 MG/DL. The reference range was not used to interpret this result as normal/abnormal. WHITE BLOOD CELLS (test code = 36947-4) 0-5 /HPF See_Comment [Automated message] The system which generated this result transmitted reference range: 0-5 /HPF. The reference range was not used to interpret this result as normal/abnormal. LIPID PANEL WITH REFLEX DIRECT [id number] 00:00:00* Test Item Value Reference Range Interpretation Comme nts CALC LDL CHOL (test code = 79448-1) 67 MG/DL See_Comment [Automated [employer]] The system which generated this result transmitted reference range: <100 MG/DL. The reference range was not used to interpret this result as normal/abnormal. CHOLESTEROL (test code = 2093-3) 139 MG/DL See_Comment [Automated [employer]] The system which generated this result transmitted reference range: <200 MG/DL. The reference range was not used to interpret this result as normal/abnormal. HDL CHOLESTEROL (test code = 2085-9) 47 MG/DL See_Comment [Automated [employer]] The system which generated this result transmitted reference range: >39 MG/DL. The reference range was not used to interpret this result as normal/abnormal. RISK RATIO LDL/HDL (test code = 27146-2) 1.43 RATIO See_Comment [Automated message] The system which generated this result transmitted reference range: <3.55 RATIO. The reference range was not used to interpret this result as normal/abnormal. TRIGLYCERIDES (test code = 2571-8) 177 MG/DL See_Comment H [Automated [employer]] The system which generated this result transmitted reference range: <150 MG/DL. The reference range was not used to interpret this result as normal/abnormal. ALBUMIN/CREATININE RATIO, RANDOM [id number] 00:00:00* Test Item Value Reference Range Interpretation Comme nts ALBUMIN, URINE, RANDOM (test code = 58700-1) 2.0 MG/DL NOT ESTAB MG/DL CALC ALBUMIN/CREAT, RND (test code = 05748-1) 10 MG/G See_Comment [Automated [employer]] The system which generated this result transmitted reference range: <30 MG/G. The reference range was not used to interpret this result as normal/abnormal. CREATININE, URINE, CONC. (test code = 2161-8) 201.1 MG/DL NOT ESTAB MG/DL COMPREHENSIVE METABOLIC [id number] 00:00:00* Test Item Value Reference Range Interpretation Comme nts ALBUMIN (test code = 1751-7) 4.3 G/DL See_Comment [Automated messa ge] The system which generated this result transmitted reference range: 3.5-5.2 G/DL. The reference range was not used to interpret this result as normal/abnormal. ALKALINE PHOSPHATASE (test code = 6768-6) 64 U/L See_Comment [Automated message] The system which generated this result transmitted reference range: 40-125 U/L. The reference range was not used to interpret this result as normal/abnormal. BILIRUBIN, TOTAL (test code = 1975-2) 0.5 MG/DL See_Comment [Automated message] The system which generated this result transmitted reference range: <=1.2 MG/DL. The reference range was not used to interpret this result as normal/abnormal. BUN (test code = 3094-0) 11 MG/DL See_Comment [Automated messa ge] The system which generated this result transmitted reference range: 8-23 MG/DL. The reference range was not used to interpret this result as normal/abnormal. CALCIUM (test code = 78218-0) 9.5 MG/DL See_Comment [Automated messa ge] The system which generated this result transmitted reference range: 8.5-10.5 MG/DL. The reference range was not used to interpret this result as normal/abnormal. CALC A/G RATIO (test code = 1759-0) 1.7 RATIO See_Comment [Automated messa ge] The system which generated this result transmitted reference range: 1.0-2.6 RATIO. The reference range was not used to interpret this result as normal/abnormal. CALC BUN/CREAT (test code = 3097-3) 13 RATIO See_Comment [Automated messa ge] The system which generated this result transmitted reference range: 6-28 RATIO. The reference range was not used to interpret this result as normal/abnormal. CALC GLOBULIN (test code = 13401-2) 2.5 G/DL See_Comment [Automated messa ge] The system which generated this result transmitted reference range: 1.9-3.7 G/DL. The reference range was not used to interpret this result as normal/abnormal. CARBON DIOXIDE (test code = 1962-8) 26 MEQ/L See_Comment [Automated messa ge] The system which generated this result transmitted reference range: 19-31 MEQ/L. The reference range was not used to interpret this result as normal/abnormal. CHLORIDE (test code = 2074-0) 104 MEQ/L See_Comment [Automated messa ge] The system which generated this result transmitted reference range: 95-107 MEQ/L. The reference range was not used to interpret this result as normal/abnormal. CREATININE (test code = 2160-0) 0.85 MG/DL See_Comment [Automated messa ge] The system which generated this result transmitted reference range: 0.80-1.40 MG/DL. The reference range was not used to interpret this result as normal/abnormal. eGFR (2020 CKD-EPI) (test code = 81047-9) 94 ML/MIN/1.73 See_Comment [Automated messa ge] The system which generated this result transmitted reference range: >60 ML/MIN/1.73. The reference range was not used to interpret this result as normal/abnormal. GLUCOSE (test code = 1558-6) 237 MG/DL See_Comment H [Automated messa ge] The system which generated this result transmitted reference range: 70-99 MG/DL. The reference range was not used to interpret this result as normal/abnormal. POTASSIUM (test code = 2823-3) 4.2 MEQ/L See_Comment [Automated messa ge] The system which generated this result transmitted reference range: 3.5-5.4 MEQ/L. The reference range was not used to interpret this result as normal/abnormal. PROTEIN, TOTAL (test code = 2885-2) 6.8 G/DL See_Comment [Automated messa ge] The system which generated this result transmitted reference range: 6.1-8.3 G/DL. The reference range was not used to interpret this result as normal/abnormal. AST (test code = 1920-8) 21 U/L See_Comment [Automated messa ge] The system which generated this result transmitted reference range: 9-50 U/L. The reference range was not used to interpret this result as normal/abnormal. ALT (test code = 1742-6) 22 U/L See_Comment [Automated messa ge] The system which generated this result transmitted reference range: 5-50 U/L. The reference range was not used to interpret this result as normal/abnormal. SODIUM (test code = 2951-2) 141 MEQ/L See_Comment [Automated messa ge] The system which generated this result transmitted reference range: 133-146 MEQ/L. The reference range was not used to interpret this result as normal/abnormal. HEMOGLOBIN [id number] 00:00:00* Test Item Value Reference Range Interpretation Comme nts A1C (test code = 4548-4) 8.9 POC, COVID 19 Antigen + Flu by [id number], COVID 19 Antigen + Flu by SofiaFoot Left 3 ViewFoot Left 3 View
--- NOTE | 2024-01-20 09:04 | ER ---
Nurse's Notes [facility] Name: Mookie Simons Age: 68 yrs Sex: Male : 1955 Arrival Date: 01/20/2024 Time: 08:26 Bed 4 Private MD: Diagnosis: Allergic dermatitis of lips Presentation: 01/19 08:37 Chief complaint: Patient states: "my lips are swollen, itchy, and I have all these aa5 little bumps". Pt reports it has been going on for "years and it gets worse every day". Reports has appointment with allergy doctor January 28. 08:37 Coronavirus screen: At this time, the client does not indicate any symptoms associated aa5 with coronavirus-19. Ebola Screen: Patient denies travel to an Ebola-affected area in the 21 days before illness onset. Initial Sepsis Screen: Does the patient meet any 2 criteria? No. Patient's initial sepsis screen is negative. Does the patient have a suspected source of infection? No. Patient's initial sepsis screen is negative. Risk Assessment: Do you want to hurt yourself or someone else? Patient reports no desire to harm self or others. Onset of symptoms is unknown. 08:37 Method Of Arrival: Ambulatory aa5 08:37 Acuity: MARIBEL 5 aa5 Historical: - Allergies: 08:44 No Known Allergies; aa5 - PMHx: 08:44 Diabetes - NIDDM; Hypertension; Hypercholesterolemia; aa5 - Immunization history:: Adult Immunizations unknown. - Social history:: Smoking status: Patient denies any tobacco usage or history of. Screenin:45 [facility] ED Fall Risk Assessment (Adult) History of falling in the last 3 months, ko1 including since admission No falls in past 3 months (0 pts) Confusion or Disorientation No (0 pts) Intoxicated or Sedated No (0 pts) Impaired Gait No (0 pts) Mobility Assist Device Used No (0 pt) Altered Elimination No (0 pt) Score/Fall Risk Level 0 - 2 = Low Risk Oriented to surroundings, Maintained a safe environment, Educated pt \\T\\ family on fall prevention, incl call for assistance when getting out of bed, Assessed \\T\\ reinforced patient's understanding of fall precautions, Provided non-skid footwear, Hourly rounding (assess needs \\T\\ fall precautionary measures) done, Used ambulatory aids as needed (educated on \\T\\ assisted with). Abuse screen: Denies threats or abuse. Denies injuries from another. Nutritional screening: No deficits noted. Tuberculosis screening: No symptoms or risk factors identified. Assessment: 08:45 General: Appears in no apparent distress. Behavior is calm, cooperative, appropriate ko1 for age. Pain: Complains of pain in upper lip and lower lip. Neuro: No deficits noted. Cardiovascular: No deficits noted. Respiratory: No deficits noted. GI: No deficits noted. : No deficits noted. EENT: No deficits noted. Derm: No deficits noted. Musculoskeletal: No deficits noted. Vital Signs: 08:37 BP 136 / 80; Pulse 66; Resp 18 S; Temp 97.8(TE); Pulse Ox 97% on R/A; aa5 08:45 BP 128 / 76; Pulse 64; Resp 15; Pulse Ox 99% ; ko1 ED Course: 08:32 Patient arrived in ED. im 08:34 Zelda Jonas [facility]NP-C [facility]. kb 08:34 Artemio Katz DO is Attending Physician. kb 08:37 Robert Eduardo, MARICRUZ is Primary Nurse. bp 08:37 Arm band placed on. aa5 08:45 Patient has correct armband on for positive identification. Bed in low position. Call ko1 light in reach. Side rails up X 1. Provided Education on: na. Pulse ox on. NIBP on. Door closed. Noise minimized. Lights dimmed. 08:45 No provider procedures requiring assistance completed. ko1 08:46 Triage completed. aa5 09:06 Patient did not have IV access during this emergency room visit. ko1 Administered Medications: 08:44 CANCELLED (Physician Discretion): [id number] mg PO once kb 08:52 Drug: Famotidine PO 20 mg PO once Route: PO; bp 09:10 Follow up: Response: No adverse reaction ko1 08:52 Drug: predniSONE PO 40 mg PO once Route: PO; bp 09:10 Follow up: Response: No adverse reaction ko1 Medication: 08:45 VIS not applicable for this client. ko1 Outcome: 09:03 Discharge ordered by . kb 09:06 Discharged to home ambulatory, ko1 09:06 Condition: stable 09:06 Discharge instructions given to patient, Instructed on discharge instructions, follow up and referral plans. medication usage, Demonstrated understanding of instructions, follow-up care, medications, Prescriptions given X 2, 09:10 Patient left the ED. ko1 Signatures: Zelda Jonas, LUBNA-C RESAW OPERATOR-Tosha Perez, RN RN aa5 Robert Eduardo RN RN bp Yesika Kamara RN RN ko1 Betty Scott
--- NOTE | 2024-01-20 09:04 | EDPHYS ---
Physician Documentation [facility] Name: Mookie Simons Age: 68 yrs Sex: Male : 1955 Arrival Date: 01/20/2024 Time: 08:26 Bed 4 Private MD: ED Physician Artemio Katz HPI: 01/19 08:44 This 68 yrs old Male presents to ER via Unassigned with complaints of Lips kb Swelling, Lip pain. 08:44 Patient is a 68-year-old male who presents for lip swelling that started 1 year ago. kb States that occurs every day. States today it was worse with itching and burning. States he ate a lot of "chile" yesterday. Denies sore throat, shortness of breath. . Historical: - Allergies: 08:44 No Known Allergies; aa5 - PMHx: 08:44 Diabetes - NIDDM; Hypertension; Hypercholesterolemia; aa5 - Immunization history:: Adult Immunizations unknown. - Social history:: Smoking status: Patient denies any tobacco usage or history of. ROS: 09:05 Constitutional: As per HPI kb Exam: 09:05 Constitutional: This is a well developed, well nourished patient who is awake, alert, kb and in no acute distress. Head/Face: Normocephalic, atraumatic. Cardiovascular: Regular rate Respiratory: Respirations even and unlabored. No increased work of breathing. Talking in full sentences Skin: Warm, dry with normal turgor. Normal color. MS/ Extremity: Pulses equal, no cyanosis. Neurovascular intact. Full, normal range of motion. Neuro: Awake and alert, GCS 15, oriented to person, place, time, and situation. Moves all extremities. Normal gait. 09:05 ENT: Mouth: Lips: slight swelling to lower lip, Vital Signs: 08:37 BP 136 / 80; Pulse 66; Resp 18 S; Temp 97.8(TE); Pulse Ox 97% on R/A; aa5 08:45 BP 128 / 76; Pulse 64; Resp 15; Pulse Ox 99% ; ko1 MDM: 08:34 Patient medically screened. kb 09:06 Differential diagnosis: allergic dermatitis, anaphylaxis, urticaria, angioedema. Data kb reviewed: vital signs, nurses notes. Counseling: I had a detailed discussion with the patient and/or guardian regarding the historical points, exam findings, and any diagnostic results supporting the discharge/admit diagnosis, the need for outpatient follow up, an allergy/corporate law specialist, a family practitioner, to return to the emergency department if symptoms worsen or persist or if there are any questions or concerns that arise at home. ED course: Pt has an appointment with nursing information systems coordinator on 01/29/24. Administered Medications: 08:44 CANCELLED (Physician Discretion): [id number] mg PO once kb 08:52 Drug: Famotidine PO 20 mg PO once Route: PO; bp 09:10 Follow up: Response: No adverse reaction ko1 08:52 Drug: predniSONE PO 40 mg PO once Route: PO; bp 09:10 Follow up: Response: No adverse reaction ko1 Disposition: 12:02 I was immediately available on-site in the Emergency Department for consultation in the ms3 care of the patient. Disposition Summary: 01/20/24 09:03 Discharge Ordered Notes: Location: Home kb Condition: Stable kb Diagnosis - Allergic dermatitis of lips kb Followup: kb - With: Emergency Department - When: As needed - Reason: Worsening of condition Followup: kb - With: Private Physician - When: 2 - 3 days - Reason: Recheck today's complaints, Continuance of care, Re-evaluation by your physician Discharge Instructions: - Discharge Summary Sheet kb - Contact Dermatitis, Vpny-iv-Vgem kb - Allergies, Adult, [id number] kb Forms: - Medication Reconciliation Form kb - Thank You Letter kb - Antibiotic Education kb - Prescription Opioid Use kb - Patient Portal Instructions kb - Leadership Thank You Letter kb Prescriptions: - Pepcid 20 mg Oral Tablet - take 1 tablet ORAL route every 12 hours for 5 days; 10 tablet; Refills: 0, kb Product Selection Permitted - Prednisone 20 mg Oral Tablet - take 1 tablet ORAL route once daily for 5 days; 5 tablet; Refills: 0, Product kb Selection Permitted Signatures: Zelda Jonas FNP-C LUBNA-Tosha Perez RN RN aa5 Robert Eduardo RN RN bp Artemio Katz DO DO ms3 Yesika Kamara RN ko1 Corrections: (The following items were deleted from the chart) 08:44 08:44 diphenhydrAMINE PO 25 mg PO once ordered. kb kb 09:06 08:44 Patient is a 68-year-old male who presents for lip swelling that started 1 year kb ago. States that occurs every day. States today it was worse with itching and burning. States he ate a lot of "chile" yesterday. . kb
[2024-01-20 09:46] VITALS: BP 128/76; TEMP 97.8; O2SAT 99
== END ==
LOC: ER 08:26
DX: L23.9 Allergic contact dermatitis, unspecified cause (principal)
CPT/HCPCS: 99283; J7512